=== PATIENT | male | born 1965 | race Hispanic/Latino ===

== ENCOUNTER 2022-04-15 18:37 | Emergency (ER) | payer BC ==
[2022-04-15 20:26] LABS: Absolute Lymphocytes (CBC) 1.8 K/uL (0.7-4.9); Hematocrit 39.3 % (39.6-49.0); Lymphocytes % 26.2 % (15.3-44.8); MCV 90.9 fL (80-100); MPV 9.6 fL (7.6-11.3); RBC Red Blood Cell Count 4.32 M/uL (4.33-5.43)
[2022-04-15 20:33] LABS: Albumin 3.3 g/dL (3.4-5.0); Bilirubin Total 0.7 mg/dL (0.2-1.0); Protein, Total 6.6 g/dL (6.4-8.2)
--- NOTE | 2022-04-15 21:23 | RAD REPORT ---
EXAM DESCRIPTION: CT - Abdomen Pelvis W Contrast - 04/15/2022 9:03 pm CLINICAL HISTORY: Abdominal pain COMPARISON: none. TECHNIQUE: Computed axial tomography of the abdomen pelvis was obtained. 100 cc Isovue-300 was admin istered intravenously. Oral contrast was not requested which limits evaluation of bowel and appendix All CT scans are performed using dose optimization technique as appropriate and may include automated exposure control or mA/KV adjustment according to patient size. FINDINGS: The liver, spleen, pancreas, adrenals and left kidney are unremarkable Several vague small low-density areas within the right kidney A portion of the appendix is seen and is normal caliber. No evidence of diverticulitis. A moderate left inguinal hernia contains fat IMPRESSION: Several vague small low-density areas within the right kidney are nonspecific. They may represent inflammation and should be correlated clinically. Moderate left inguinal hernia
[2022-04-15 21:58] LABS: Urine Blood 1+ (Negative); Urine Glucose 2+ (Negative); Urine Protein 2+ (Negative)
--- NOTE | 2022-04-15 22:15 | RAD REPORT ---
EXAM DESCRIPTION: US - Abdomen Exam Limited - 04/15/2022 10:05 pm CLINICAL HISTORY: Abdominal pain. COMPARISON: None. FINDINGS: The gallbladder wall is not thickened. A gallstone is not seen. The biliary tree is normal caliber. IMPRESSION: Unremarkable gallbladder ultrasound.
--- NOTE | 2022-04-15 22:33 | EDPHYS ---
Physician Documentation [facility] Name: Pj Mendieta Age: 57 yrs Sex: Male : 1965 Arrival Date: 04/15/2022 Time: 18:41 Bed 28 Private MD: Thang Saldivar ED Physician Cole Campos HPI: 04/16 00:50 This 57 yrs old Male presents to ER via Ambulatory with complaints of kb Abdominal Swelling. 00:50 The patient presents with abdominal distention in the right upper quadrant. Onset: The kb symptoms/episode began/occurred 3 month(s) ago. The symptoms do not radiate. Associated signs and symptoms: none. The symptoms are described as constant. Modifying factors: The symptoms are alleviated by nothing, the symptoms are aggravated by nothing. Severity of pain: At its worst the pain was very mild in the emergency department the pain is unchanged. The patient has not experienced similar symptoms in the past. The patient has not recently seen a physician. Pt reports swelling to RUQ. States he does not have pain, but it is uncomfortable at times. Historical: - Allergies: 04/15 19:10 No Known Allergies; vc1 - Home Meds: 19:10 Metformin Oral [Active]; Simvastatin Oral [Active]; Lisinopril Oral [Active]; vc1 - PMHx: 19:10 Hypertensive disorder; Diabetes mellitus; Hypercholesterolemia; vc1 - PSHx: 19:10 None; vc1 - Immunization history:: Adult Immunizations up to date. - Social history:: Smoking status: Patient reports the use of cigarette tobacco products, denies chronic smoking, but will smoke occasionally, Patient uses alcohol, "Weekends". ROS: 04/16 00:50 Constitutional: Negative for fever, chills, and weight loss. kb Abdomen/GI: Positive for abdominal distension, Negative for abdominal pain, nausea, vomiting, and diarrhea. All other systems are negative. Exam: 00:50 Constitutional: This is a well developed, well nourished patient who is awake, alert, kb and in no acute distress. Head/Face: Normocephalic, atraumatic. ENT: Moist Mucous membranes Cardiovascular: Regular rate and rhythm with a normal S1 and S2. No gallops, murmurs, or rubs. No pulse deficits. Respiratory: Respirations even and unlabored. No increased work of breathing. Talking in full sentences Skin: Warm, dry with normal turgor. Normal color. MS/ Extremity: Pulses equal, no cyanosis. Neurovascular intact. Full, normal range of motion. Neuro: Awake and alert, GCS 15, oriented to person, place, time, and situation. Moves all extremities. Normal gait. Psych: Awake, alert, with orientation to person, place and time. Behavior, mood, and affect are within normal limits. 00:50 Abdomen/GI: Inspection: distension, that is mild, in the right upper quadrant, Bowel sounds: normal, Palpation: abdomen is soft and non-tender. Vital Signs: 04/15 19:07 Pulse 77; Resp 20; Temp 98.2; Pulse Ox 100% ; Weight 89.36 kg; Height 5 ft. 7 in. vc1 (170.18 cm); Pain 4/10; 19:12 BP 172 / 93; vc1 22:00 BP 180 / 97; Pulse 60; Resp 20; Pulse Ox 100% ; vc1 22:57 BP 161 / 80; Pulse 61; Resp 18; Pulse Ox 99% on R/A; vc1 19:07 Body Mass Index 30.85 (89.36 kg, 170.18 cm) vc1 MDM: 19:09 Patient medically screened. kb 04/16 00:49 Data reviewed: vital signs, nurses notes. Data interpreted: Pulse oximetry: on room air kb is 99 %. Interpretation: normal. Counseling: I had a detailed discussion with the patient and/or guardian regarding: the historical points, exam findings, and any diagnostic results supporting the discharge/admit diagnosis, lab results, radiology results, the need for outpatient follow up, a family practitioner, a civil laboratory technician, to return to the emergency department if symptoms worsen or persist or if there are any questions or concerns that arise at home. 04/15 19:09 Order name: CBC with Diff; Complete Time: 20:30 kb 04/15 19:09 Order name: CMP; Complete Time: 20:34 kb 04/15 19:09 Order name: Lipase; Complete Time: 20:34 kb 04/15 19:09 Order name: CT Abd/Pelvis - IV Contrast Only; Complete Time: 21:26 kb 04/15 21:27 Order name: US Abdomen Limited; Complete Time: 22:25 kb 07/18 21:58 Order name: Urine Dipstick-Ancillary; Complete Time: 22:03 EDMS 04/15 19:09 Order name: IV Saline Lock; Complete Time: 20:09 kb 04/15 19:09 Order name: Labs collected and sent; Complete Time: 20:09 kb 04/15 21:26 Order name: Urine Dipstick-Ancillary (obtain specimen); Complete Time: 21:57 kb Administered Medications: No medications were administered Disposition: 14:08 Co-signature as Attending Physician, Cole Campos DO I was immediately available on-site ms3 in the Emergency Department for consultation in the care of the patient. . Disposition Summary: 04/15/22 22:32 Discharge Ordered Location: Home kb Condition: Stable kb Diagnosis - RUQ swelling kb - Abdominal pain, unspecified kb Followup: kb - With: Emergency Department - When: As needed - Reason: Worsening of condition Followup: kb - With: Private Physician - When: 2 - 3 days - Reason: Recheck today's complaints, Continuance of care, Re-evaluation by your physician Discharge Instructions: - Discharge Summary Sheet kb - Abdominal Pain, Adult, [id number] kb Forms: - Medication Reconciliation Form kb - Thank You Letter kb - Antibiotic Education kb - Prescription Opioid Use kb Signatures: Dispatcher [employer] EDVT Lucia Mcintosh, SILK WASHING MACHINE OPERATOR-C SILK WASHING MACHINE OPERATOR-CkCole Asif DO DO ms3 Bisi Harp, RN RN vc1
--- NOTE | 2022-04-15 22:33 | ER ---
Nurse's Notes [facility] Name: Pj Mendieta Age: 57 yrs Sex: Male : 1965 Arrival Date: 04/15/2022 Time: 18:41 Bed 28 Private MD: Thang Saldivar Diagnosis: RUQ swelling;Abdominal pain, unspecified Presentation: 04/15 19:07 Chief complaint: Patient states: "I am having swelling to the right upper quadrant.". vc1 Coronavirus screen:. Initial Sepsis Screen: Does the patient meet any 2 criteria? No. Patient's initial sepsis screen is negative. Does the patient have a suspected source of infection? No. Patient's initial sepsis screen is negative. Risk Assessment: Do you want to hurt yourself or someone else? Patient reports no desire to harm self or others. Onset of symptoms is unknown. 19:07 Method Of Arrival: Ambulatory vc1 19:07 Acuity: RICK 3 vc1 19:11 Ebola Screen: No symptoms or risks identified at this time. vc1 Triage Assessment: 21:07 General: Appears in no apparent distress. comfortable, Behavior is calm, cooperative, vc1 appropriate for age. Pain: Complains of pain in right upper quadrant Pain does not radiate. EENT: No deficits noted. Neuro: Level of Consciousness is awake, alert, obeys commands, Oriented to person, place, time, situation, Appropriate for age. Cardiovascular: Capillary refill < 3 seconds Patient's skin is warm and dry. Respiratory: Airway is patent Respiratory effort is even, unlabored, Respiratory pattern is regular, symmetrical. GI: Abdomen is round. : No deficits noted. Derm: No deficits noted. Musculoskeletal: No deficits noted. Historical: - Allergies: 19:10 No Known Allergies; vc1 - Home Meds: 19:10 Metformin Oral [Active]; Simvastatin Oral [Active]; Lisinopril Oral [Active]; vc1 - PMHx: 19:10 Hypertensive disorder; Diabetes mellitus; Hypercholesterolemia; vc1 - PSHx: 19:10 None; vc1 - Immunization history:: Adult Immunizations up to date. - Social history:: Smoking status: Patient reports the use of cigarette tobacco products, denies chronic smoking, but will smoke occasionally, Patient uses alcohol, "Weekends". Screenin:12 Abuse screen: Denies threats or abuse. Nutritional screening: No deficits noted. vc1 Tuberculosis screening: No symptoms or risk factors identified. Fall Risk None identified. Assessment: 21:08 GI: Bowel sounds present X 4 quads. Abd is soft Abdomen is tender to palpation. vc1 Vital Signs: 19:07 Pulse 77; Resp 20; Temp 98.2; Pulse Ox 100% ; Weight 89.36 kg; Height 5 ft. 7 in. vc1 (170.18 cm); Pain 4/10; 19:12 BP 172 / 93; vc1 22:00 BP 180 / 97; Pulse 60; Resp 20; Pulse Ox 100% ; vc1 22:57 BP 161 / 80; Pulse 61; Resp 18; Pulse Ox 99% on R/A; vc1 19:07 Body Mass Index 30.85 (89.36 kg, 170.18 cm) vc1 ED Course: 18:41 Patient arrived in ED. mr 18:41 Thang Saldivar MD is Private Physician. mr 19:09 Lucia Mcintosh FNP-C is [facility]. kb 19:09 Cole Campos DO is Attending Physician. kb 19:10 Triage completed. vc1 19:11 Arm band placed on right wrist. vc1 19:51 Bisi Harp RN is Primary Nurse. vc1 20:00 Patient has correct armband on for positive identification. Pulse ox on. NIBP on. vc1 21:05 CT Abd/Pelvis - IV Contrast Only In Process Unspecified. EDMS 22:06 US Abdomen Limited In Process Unspecified. EDMS 23:01 No provider procedures requiring assistance completed. IV discontinued, intact, vc1 bleeding controlled, No redness/swelling at site. Pressure dressing applied. Administered Medications: No medications were administered Medication: 23:01 VIS not applicable for this client. vc1 Outcome: 22:32 Discharge ordered by . kb 23:01 Discharged to home ambulatory, with significant other. vc1 23:01 Condition: good 23:01 Discharge instructions given to patient, significant other, Instructed on discharge instructions, follow up and referral plans. Demonstrated understanding of instructions, follow-up care. 23:04 Patient left the ED. vc1 Signatures: Dispatcher [employer] EDNY Lucia Mcintosh FNP-C DREDGE WORKER-Cait Mcdonald mr Bisi Harp, RN RN vc1
[2022-04-15 23:42] VITALS: TEMP 98.2
[2022-04-15 23:46] VITALS: BP 161/80; O2SAT 99
== END 2022-04-15 23:04 | disposition home or self-care (01) ==
LOC: ER 18:37
DX: R19.01 Right upper quadrant abdominal swelling, mass and lump (principal); R10.11 Right upper quadrant pain; I10 Essential (primary) hypertension; E11.9 Type 2 diabetes mellitus without complications; F17.210 Nicotine dependence, cigarettes, uncomplicated
CPT/HCPCS: 85025; 36415; 81003; 83690; 80053; 74177; 76705; 99283; Q9967

== ENCOUNTER 2023-08-10 12:40 | Emergency (ER) | payer OTHER, BC ==
--- OUTSIDE RECORDS SUMMARY | 2023-08-10 12:47 | XMS REPORT | Continuity of Care Document ---
:1965 Author Organization [facility] t Address [address] [place] [address] Care Team Providers Name Role Phone Julio BURCIAGA, Blue Menendez. Primary Care Physician Lana Bailey Attending Clinician Unavailable ABBI AGUIAR Attending Clinician Unavailable ABBI AGUIAR Attending Clinician Unavailable DELPHINE DODGE Attending Clinician Unavailable EDA ROSEN Attending Clinician Unavailable JASMINA ROSENYA Attending Clinician Unavailable JOHN STARKEY Attending Clinician Unavailable ALONSO NJ Attending Clinician Unavailable ALONSO NJ Attending Clinician Unavailable John Valverde Attending Clinician Lab, Ang - Db Attending Clinician Unavailable Champion_P Attending Clinician Unavailable Beatriz Kumar RN Attending Clinician Unavailable WALI DIAZ Attending Clinician Unavailable Wali Diaz MD Attending Clinician Roni Mccracken MD Attending Clinician Doctor Unassigned, [place] Attending Clinician Unavailable [facility] Attending Clinician Unavailable Jeffrey Maguire MD Attending Clinician ATANASOV, STRAHIL T Attending Clinician Unavailable ZOHREH MAGUIREHIL T Attending Clinician Unavailable BRENDA BARROSO Attending Clinician Yohana safia Barroso MD, Brenda Cantu Attending Clinician Venkatesh Oneill Attending Clinician Unavailable HENRY BOB Attending Clinician Unavailable Jennifer, General Cardiology Attending Clinician Unavailable Gm BURCIAGA, Cam Loepz Attending Clinician Colleen Mcleod RN Attending Clinician Unavailable Dayton RENDON, Jaja Attending Clinician Unavailable Greg Attending Clinician Unavailable Yancy Brar Attending Clinician Unavailable CAM WORRELL Attending Clinician Unavailable LANA CROCKETT Attending Clinician Unavailable Team, [facility] Attending Clinician Unavailisai Bob MD, Henry Attending Clinician KATERINA DOBSON Attending Clinician Unavailable Anejohn LANGUAGE ARTS TEACHERKermit Attending Clinician KERMIT PORTILLO Attending Clinician Unavailable Lab, Adc Fam Pob I Attending Clinician Unavailable Provider, [facility] Attending Clinician Unavailable HARJINDER HUERTAS Attending Clinician Unavailable TIFFANIE HAMPTON Attending Clinician Unavailable Derian Napoles MD Attending Clinician GABRIELA QUINTANILLA Attending Clinician Unavailable Gabriela Groves Attending Clinician DEIRAN NAPOLES Attending Clinician Unavailable Lana Bailey Admitting Clinician Unavailable Champion_P Admitting Clinician Unavailable RONI MCCRACKEN Admitting Clinician Unavailable BRENDA BARROSO Admitting Clinician Yohana safia Barroso MD, Brenda Cantu Admitting Clinician ABBI NINA Admitting Clinician Unavailable Greg Admitting Clinician Unavailable Yancy Brar Admitting Clinician Unavailable Payers Payer Name Policy Type Policy Number Effective Date Expiration Date S tank [facility] - [id number] 2021 00:00:00 OUT OF STATE [place]: [facility] [id number] 2021 00:00:00 OF [place] ([place] Problems Condition Condition Condition Status Onset Resolution Last Treating Co mments Source Name Details Category Date Date Treatment Clinician Date Septic Septic Disease Active Univers bursitis bursitis 8-27 [place] of [place] Primary Primary Problem Active [facility] erectile Erectile 8-25 [place] dysfunctio Dysfunctio 00:00: Ur ology n n 00 Obesity Obesity Disease Active Univers (BMI (BMI 6-20 ity of 30-39.9) 30-39.9) 00:00: [place] 00 Medical Branch SOB SOB Disease Active Univers (shortness (shortness 6-20 it [place] of of breath[place] breath[place] Degenerati Degenerati Disease Active 2021-09 U nivers on of on of 0-27 ity of lumbar lumbar 00:00: [place] interverte interverte 00 Me dical bral disc bral disc Bran ch Spinal Spinal Disease Active 2021-09 Univers stenosis stenosis 0-27 [place] of of lumbar of lumbar 00:[place] Low back Low back Disease Active 2021-09 Unive rs pain pain 0-26 ity of 00:00: [place] [address] Medical Branch Lumbar Lumbar Problem Active 2021-09 [place] radiculopa Radiculopa 0-26 Or thope thy thy 00:00: [facility] 00 Sports Medicin e 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 2 2-03 ity of diabetes diabetes 00:00: [place] mellitus mellitus 00 Medica l with with Branch hyperglyce hyperglyce mario mario Essential Essential Disease Active Uni vers hypertensi hypertensi 5-18 it y of on on 00:00: [place] Medical [facility] Hyperlipid Hyperlipid Disease Active U nivers emia, emia, 5-18 ity of unspecifie unspecifie 00:[place] 00 Medical hyperlipid hyperlipid Br anch emia type emia type No known No known Disease Metho di active active st problems problems Hospit a l Allergies, Adverse Reactions, Alerts Allergy Allergy Status Severity Reaction(s) Onset Inactive Treating Comm ents Source Name Type Date Date Clinician No Known DA Active U [facility] Allergie 5-25 [facility] s 00:00: [facility] 00 are [place] NO KNOWN Drug Active Univers ALLERGIE Class ity of S [facility] Social History Social Habit Start Date Stop Date Quantity Comments Source Gender identity [facility]it y [facility] to 2022-12-29 2023-01-08 Not sure University SARS-CoV-2 (event) 00:00:00 14:15:00 [facility] History of Social 2022-10-28 2022-10-28 Univers ity of function 00:00:00 00:00:00 [facility] Tobacco use and 2022-10-28 2022-10-28 Smokeless Universit y of exposure 00:00:00 00:00:00 tobacco non-user [facility] Alcohol intake 2020-07-27 2020-07-27 .14 /d [facility] 00:[facility]:00 [facility] Sex Ass[birth year] At [birth year] [facility] 00:00:[facility]:00 Hospital Smoking Status Start Date Stop Date Source Never smoked tobacco [facility] Medications Ordered Filled Start Stop Current Ordering Indication Dosage Frequency Signature Comments Components Source Medication Medication Date Date Medication? Clinician (SIG) Name Name clindamycin Yes [id number] 300mg Take 1 Univers 300 mg 9-11 [id number] capsule by ity o f capsule 00:00: mouth (four) Medical times Branch daily. ibuprofen Yes [id number] 800mg Take 1 Univers 800 mg 9-11 [id number] tablet by ity of tablet 00:00: mouth [place] 00 every 8 Medical (eight) Branch hours as needed for Pain (scale 4-6) (with meals). clindamycin Yes [id number] 300mg Take 1 Univers 300 mg 9-11 [id number] capsule by ity o f capsule 00:00: mouth (four) Medical times Branch daily. ibuprofen Yes [id number] 800mg Take 1 Univers 800 mg 9-11 [id number] tablet by ity of tablet 00:00: mouth 00 every 8 Medical (eight) Branch hours as needed for Pain (scale 4-6) (with meals). clindamycin 2022-0 Yes [id number] 300mg Take 1 Univers 300 mg 9-11 [id number] capsule by ity o f capsule 00:00: mouth (four) Medical times Branch daily. ibuprofen 2023-0 Yes [id number] 800mg Take 1 Univers 800 mg 9-11 [id number] tablet by ity of tablet 00:00: mouth [place] 00 every 8 Medical (eight) Branch hours as needed for Pain (scale 4-6) (with meals). clindamycin 2023-0 Yes [id number] 300mg Take 1 Univers 300 mg 9-11 [id number] capsule by ity o f capsule 00:00: mouth (four) Medical times Branch daily. ibuprofen 2023-0 Yes [id number] 800mg Take 1 Univers 800 mg 9-11 [id number] tablet by ity of tablet 00:00: mouth every 8 Medical (eight) Branch hours as needed for Pain (scale 4-6) (with meals). clindamycin 2023-0 Yes [id number] 300mg Take 1 Univers 300 mg 9-11 [id number] capsule by ity o f capsule 00:00: mouth (four) Medical times Branch daily. ibuprofen 2023-0 Yes [id number] 800mg Take 1 Univers 800 mg 9-11 [id number] tablet by ity of tablet 00:00: mouth every 8 Medical (eight) Branch hours as needed for Pain (scale 4-6) (with meals). clindamycin 2023-0 Yes [id number] 300mg Take 1 Univers 300 mg 9-11 [id number] capsule by ity o f capsule 00:00: mouth (four) Medical times Branch daily. ibuprofen 2023-0 Yes [id number] 800mg Take 1 Univers 800 mg 9-11 [id number] tablet by ity of tablet 00:00: mouth 00 every 8 Medical (eight) Branch hours as needed for Pain (scale 4-6) (with meals). clindamycin 2023-0 Yes [id number] 300mg Take 1 Univers 300 mg 9-11 [id number] capsule by ity o f capsule 00:00: mouth (four) Medical times Branch daily. ibuprofen 2023-0 Yes [id number] 800mg Take 1 Univers 800 mg 9-11 [id number] tablet by ity of tablet 00:00: mouth [place] 00 every 8 Medical (eight) Branch hours as needed for Pain (scale 4-6) (with meals). clindamycin 2022-0 Yes [id number] 300mg Take 1 Univers 300 mg 9-11 [id number] capsule by ity o f capsule 00:00: mouth 4 [place] 00 (four) Medical times Branch daily. ibuprofen 2022-0 Yes [id number] 800mg Take 1 Univers 800 mg 9-11 [id number] tablet by ity of tablet 00:00: mouth 00 every 8 Medical (eight) Branch hours as needed for Pain (scale 4-6) (with meals). clindamycin 2022-0 Yes [id number] 300mg Take 1 Univers 300 mg 9-11 [id number] capsule by ity o f capsule 00:00: mouth 4 00 (four) Medical times Branch daily. ibuprofen 2022-0 Yes [id number] 800mg Take 1 Univers 800 mg 9-11 [id number] tablet by ity of tablet 00:00: mouth 00 every 8 Medical (eight) Branch hours as needed for Pain (scale 4-6) (with meals). mupirocin 2 2022- Yes [id number] Apply to Univers % ointment 05-27 09-06 [id number] area(s) 3 i ty of 00:00: 04:59 (three) [place] 00 :00 times Medical daily for Branch 7 days. mupirocin 2 0 2022- Yes [id number] Apply to Univers % ointment 05-27 09-06 [id number] area(s) 3 i ty of 00:00: 04:59 (three) [place] 00 :00 times Medical daily for Branch 7 days. simvastatin 2022-0 Yes 20mg 20 mg, Univ ers (ZOCOR) 8 Oral, QHS, ity of tablet 20 02:00: [place] 00 on [facility] 05/25/23 at Branch 2100, Until Discontinu ed, Routine enoxaparin 2022-0 Yes 40mg 40 mg, Unive rs (LOVENOX) 8 Subcutaneo ity of injection 22:00: [place], DAILY, [place] 40 mg 00 First dose Medical on [facility] 05/25/23 at 1700, Until Discontinu ed, Routine sennosides- 2022-0 Yes 1{tbl} 1 tablet, [facility] docusate 05-25 Oral, ity of sodium 14:00: DAILY, [place] (SENOKOT-S) 00 First dose Me dical 8.6-50 mg on [facility] per tablet 05/25/23 at 1 tablet 0900, Until Discontinu ed, Routine Sliding Yes Subcutaneo [facility] ers Scale 05-25 us, TID ity of Insulin - 13:00: MEALS+HS, Aditya as Lispro 00 First dose Medical (HumaLOG) on [facility] 05/25/23 at 0800, Until Discontinu ed, Routine ceFAZolin 2022- Yes 1000mg 1,000 mg, [facility] (ANCEF) 05-25 Intravenou ity o f 1,000 mg in 10:15: 10:14 s, Q8H Aditya as NaCl 0.9% 00 :00 ABX, 15 Medical (NS) 100 mL doses, Branch MINI-BAG First dose on [place] 05/25/23 at 0515, Last dose on [place] 05/29/23 at 2115, Administer over 30 Minutes, 100 mL
Reas on for Anti-Infec tive: Documented Infection< br>Documen kar Infection Site: Skin / Soft Tissue
Duration of Therapy: 7 days NaCl 0.9% 2022- No 500mL at 999 [facility] ers (NS) bolus 05-25 mL/hr, 500 it y of infusion 09:15: 09:46 mL, IV [place] 500 mL 00 :00 Piggyback, Medical ONCE, 1 Branch dose, On [place] 05/25/23 at 0415, STAT lisinopriL 2022- No 20mg 20 mg, [facility] ers (PRINIVIL,Z 05-25 Oral, ity of ESTRIL) 09:15: 09:45 Q24H, [place] tablet 20 00 :02 First dose Medi faisal mg on [facility] 05/25/23 at 0415, Until Discontinu ed, Routine insulin Yes 10U 10 Units, [facility] rs glargine 05-25 Subcutaneo ity o f (LANTUS 08:30: us, QHS, [place] U-100) 00 First dose Medical injection on [facility] 10 Units 05/25/23 at 0330, Until Discontinu ed, Routine melatonin 2022-0 Yes 3mg 3 mg, Univers (MELATIN) 05-25 Oral, ity of tablet 3 mg 08:25: QHSPRN, Aditya as 05 Starting Medical on [place] 05/25/23 at 0325, Until Discontinu ed, Routine, Insomnia dextrose 2022-0 Yes 250mL 250 mL, IV Un leandra 10% (D10W) 05-25 Infusion, ity of bolus 08:21: PRN - SEE [place] infusion 36 INSTRUCTIO Medic al 250 mL NS, Branch Administer over 60 Minutes, Other, If blood glucose is < or = 70 mg/dL and patient is unable to swallow or has mental status changes, Starting on 05/25/23 at 0321
If blood glucose is < or = 70 mg/dL and patient is unable to swallow or has mental status changes (Give glucagon order if patient needs fluid restrictio n): IF IV access available: Dextrose 10%. 1. 125 mL (? bag) of D10W IV infusion - equivalent to 12.5 g dextrose 2. Blood glucose - draw blood glucose 15 minutes after D10W Administra tion. 3. If blood glucose is < 80 mg/dL, repeat.
glucagon Yes 1mg 1 mg, Univers (GLUCAGEN 05-25 Intramuscu ity of DIAGNOSTIC 08:21: lar, PRN, [place] KIT) 33 Starting Medical injection 1 on [place] Branch mg 05/25/23 at 0321, Until Discontinu ed, SILVIA, Blood Glucose < or = 70 mg/dL and patient is NPO, unable to swallow or has mental changes. hydroCHLORO 2022-0 202- No 25mg 25 mg, Uni vers thiazide 05-25 Oral, ity of (ESIDRIX) 08:15: 09:45 DAILY, [place] tablet 25 00 :02 First dose Medi faisal mg on [place] 05/25/23 at 0315, Until Discontinu ed, Routine ondansetron 2022-0 Yes 4mg 4 mg, Slow Univers (ZOFRAN 05-25 IV Push, ity of (PF)) 07:50: Q6HPRN, [place] injection 4 10 Starting Medi faisal mg on [place] 05/25/23 at 0250, Until Discontinu ed, Routine, Nausea and Vomiting (N/V) morpHINE (4 2022- No 4mg 4 mg, Slow Univers mg/mL) 05-25 IV Push, ity of injection 4 07:50: 11:57 Q4HPRN, [place] mg 01 :51 Starting Medical on [place] 05/25/23 at 0250, Until 05/25/23 at 0657, Routine, Pain (scale 7-10) HYDROcodone 2022- Yes 1{tbl} 1 tablet, Univers -acetaminop 05-25 Oral, ity of hen (NORCO 07:49: 07:48 Q6HPRN, Aditya as 5) 5-325 mg 54 :54 Starting Medi faisal tablet 1 on [place] tablet 05/25/23 at 0249, Until 05/27/23 at 0248, Routine, Pain (scale 4-6) HYDROcodone 2022- Yes [id number] 1{tbl} Take 1 U nivers -acetaminop 05-2504 tablet by it y of hen 5-325 00:00: 04:59 mouth [place] mg tablet 00 :00 every 6 Medical (six) Branch hours as needed for Pain (scale 7-10) for up to 7 days. Indication s: acute pain HYDROcodone 2022- Yes [id number] 1{tbl} Take 1 U nivers -acetaminop -25 06-04 tablet by it y of hen 5-325 00:00: 04:59 mouth [place] mg tablet 00 :00 every 6 Medical (six) Branch hours as needed for Pain (scale 7-10) for up to 7 days. Indication s: acute pain HYDROcodone 2022- Yes [id number] 1{tbl} Take 1 U nivers -acetaminop 8- 09-04 tablet by it y of hen 5-325 00:00: 04:59 mouth [place] mg tablet 00 :00 every 6 Medical (six) Branch hours as needed for Pain (scale 7-10) for up to 7 days. Indication s: acute pain HYDROcodone 2022- Yes [id number] 1{tbl} Take 1 U nivers -acetaminop 05-25 tablet by it y of hen 5-325 00:00: 04:59 mouth [place] mg tablet 00 :00 every 6 Medical (six) Branch hours as needed for Pain (scale 7-10) for up to 7 days. Indication s: acute pain cephALEXin 2022- Yes [id number] 500mg Take 1 Univers 500 mg 05-25 [id number] capsule by ity of capsule 00:00: 04:59 mouth 4 [place] 00 :00 (four) Medical times Branch daily for 6 days. cephALEXin 2022- Yes [id number] 500mg Take 1 Univers 500 mg 05-25 [id number] capsule by ity of capsule 00:00: 04:59 mouth 4 [place] 00 :00 (four) Medical times Branch daily for 6 days. cephALEXin 2022- Yes [id number] 500mg Take 1 Univers 500 mg 05-25 [id number] capsule by ity of capsule 00:00: 04:59 mouth 4 [place] 00 :00 (four) Medical times Branch daily for 6 days. cephALEXin 2022- Yes [id number] 500mg Take 1 Univers 500 mg 05-25 [id number] capsule by ity of capsule 00:00: 04:59 mouth 4 [place] 00 :00 (four) Medical times Branch daily for 6 days. Insulin NPH Yes [id number] 20U inject 20 Univers Human 7-06 Units ity of Recomb 00:00: under the [place] (HUMULIN N 00 skin every Med ical NPH INSULIN morning. Bran ch KWIKPEN) 100 unit/mL (3 mL) injection lisinopriL- Yes [id number] 1{tbl} Take 1 Univers hydrochloro 7-06 tablet by ity of thiazide 00:00: mouth in [place] 20-25 mg 00 the Medical per tablet morning. Branc h Insulin NPH Yes [id number] 20U inject 20 Univers Human 7-06 Units ity of Recomb 00:00: under the [place] (HUMULIN N 00 skin every Med ical NPH INSULIN morning. Bran ch KWIKPEN) 100 unit/mL (3 mL) injection lisinopriL- Yes [id number] 1{tbl} Take 1 Univers hydrochloro 7-06 tablet by ity of thiazide 00:00: mouth in [place] 20-25 mg 00 the Medical per tablet morning. Branc h Insulin NPH 2022-0 Yes [id number] 20U inject 20 Univers Human 7-06 Units ity of Recomb 00:00: under the [place] (HUMULIN N 00 skin every Med ical NPH INSULIN morning. Randell corrales KWIKPEN) 100 unit/mL (3 mL) injection lisinopriL- 2023-0 Yes [id number] 1{tbl} Take 1 Univers hydrochloro 7-06 tablet by ity of thiazide 00:00: mouth in [place] 20-25 mg 00 the Medical per tablet morning. Branc h Insulin NPH 2022-0 Yes [id number] 20U inject 20 Univers Human 7-06 Units ity of Recomb 00:00: under the [place] (HUMULIN N 00 skin every Med ical NPH INSULIN morning. Randell corrales KWIKPEN) 100 unit/mL (3 mL) injection lisinopriL- 2023-0 Yes [id number] 1{tbl} Take 1 Univers hydrochloro 7-06 tablet by ity of thiazide 00:00: mouth in [place] 20-25 mg 00 the Medical per tablet morning. Branc h Insulin NPH 2022-0 Yes [id number] 20U inject 20 Univers Human 7-06 Units ity of Recomb 00:00: under the [place] (HUMULIN N 00 skin every Med ical NPH INSULIN morning. Randell corrales KWIKPEN) 100 unit/mL (3 mL) injection lisinopriL- 2023-0 Yes [id number] 1{tbl} Take 1 Univers hydrochloro 7-06 tablet by ity of thiazide 00:00: mouth in [place] 20-25 mg 00 the Medical per tablet morning. Branc h Insulin NPH 2022-0 Yes [id number] 20U inject 20 Univers Human 7-06 Units ity of Recomb 00:00: under the [place] (HUMULIN N 00 skin every Med ical NPH INSULIN morning. Randell corrales KWIKPEN) 100 unit/mL (3 mL) injection lisinopriL- 2023-0 Yes [id number] 1{tbl} Take 1 Univers hydrochloro 7-06 tablet by ity of thiazide 00:00: mouth in [place] 20-25 mg 00 the Medical per tablet morning. Branc h Insulin NPH 2022-0 Yes [id number] 20U inject 20 Univers Human 7-06 Units ity of Recomb 00:00: under the [place] (HUMULIN N 00 skin every Med ical NPH INSULIN morning. Randell corrales KWIKPEN) 100 unit/mL (3 mL) injection lisinopriL- 2022-0 Yes [id number] 1{tbl} Take 1 Univers hydrochloro 7-06 tablet by ity of thiazide 00:00: mouth in [place] 20-25 mg 00 the Medical per tablet morning. Branc h Insulin NPH 2022-0 Yes [id number] 20U inject 20 Univers Human 7-06 Units ity of Recomb 00:00: under the [place] (HUMULIN N 00 skin every Med ical NPH INSULIN morning. Randell corrales KWIKPEN) 100 unit/mL (3 mL) injection lisinopriL- 2022-0 Yes [id number] 1{tbl} Take 1 Univers hydrochloro 7-06 tablet by ity of thiazide 00:00: mouth in [place] 20-25 mg 00 the Medical per tablet morning. Branc h Insulin NPH 2022-0 Yes [id number] 20U inject 20 Univers Human 7-06 Units ity of Recomb 00:00: under the [place] (HUMULIN N 00 skin every Med ical NPH INSULIN morning. Randell corrales KWIKPEN) 100 unit/mL (3 mL) injection lisinopriL- 3-0 Yes [id number] 1{tbl} Take 1 Univers hydrochloro 7-06 tablet by ity of thiazide 00:00: mouth in [place] 20-25 mg 00 the Medical per tablet morning. Branc h Insulin NPH 2022-0 Yes [id number] 20U inject 20 Univers Human 7-06 Units ity of Recomb 00:00: under the [place] (HUMULIN N 00 skin every Med ical NPH INSULIN morning. Randell corrales KWIKPEN) 100 unit/mL (3 mL) injection lisinopriL- 2023-0 Yes [id number] 1{tbl} Take 1 Univers hydrochloro 7-06 tablet by ity of thiazide 00:00: mouth in [place] 20-25 mg 00 the Medical per tablet morning. Branc h Insulin NPH 2022-0 Yes [id number] 20U inject 20 Univers Human 7-06 Units ity of Recomb 00:00: under the [place] (HUMULIN N 00 skin every Med ical NPH INSULIN morning. Randell corrales KWIKPEN) 100 unit/mL (3 mL) injection lisinopriL- 2023-0 Yes [id number] 1{tbl} Take 1 Univers hydrochloro 7-06 tablet by ity of thiazide 00:00: mouth in [place] 20-25 mg 00 the Medical per tablet morning. Branc h Insulin NPH 2022-0 Yes [id number] 20U inject 20 Univers Human 7-06 Units ity of Recomb 00:00: under the [place] (HUMULIN N 00 skin every Med ical NPH INSULIN morning. Randell antoni HAQUEPEN) 100 unit/mL (3 mL) injection lisinopriL- 2023-0 Yes [id number] 1{tbl} Take 1 Univers hydrochloro 7-06 tablet by ity of thiazide 00:00: mouth in [place] 20-25 mg 00 the Medical per tablet morning. Branc h Insulin NPH 2022-0 Yes [id number] 20U inject 20 Univers Human 7-06 Units ity of Recomb 00:00: under the [place] (HUMULIN N 00 skin every Med ical NPH INSULIN morning. Randell antoni HAQUEPEN) 100 unit/mL (3 mL) injection lisinopriL- 2023-0 Yes [id number] 1{tbl} Take 1 Univers hydrochloro 7-06 tablet by ity of thiazide 00:00: mouth in [place] 20-25 mg 00 the Medical per tablet morning. Branc h Insulin NPH 2022-0 Yes [id number] 20U inject 20 Univers Human 7-06 Units ity of Recomb 00:00: under the [place] (HUMULIN N 00 skin every Med ical NPH INSULIN morning. Randell antoni HAQUEPEN) 100 unit/mL (3 mL) injection lisinopriL- 2023-0 Yes [id number] 1{tbl} Take 1 Univers hydrochloro 7-06 tablet by ity of thiazide 00:00: mouth in [place] 20-25 mg 00 the Medical per tablet morning. Branc h Insulin NPH 2022-0 Yes [id number] 20U inject 20 Univers Human 7-06 Units ity of Recomb 00:00: under the [place] (HUMULIN N 00 skin every Med ical NPH INSULIN morning. Randell antoni HAQUEPEN) 100 unit/mL (3 mL) injection lisinopriL- 2023-0 Yes [id number] 1{tbl} Take 1 Univers hydrochloro 7-06 tablet by ity of thiazide 00:00: mouth in [place] 20-25 mg 00 the Medical per tablet morning. Branc h Insulin NPH 2022-0 Yes [id number] 20U inject 20 Univers Human 7-06 Units ity of Recomb 00:00: under the [place] (HUMULIN N 00 skin every Med ical NPH INSULIN morning. Randell corrales KWIKPEN) 100 unit/mL (3 mL) injection lisinopriL- 2023-0 Yes [id number] 1{tbl} Take 1 Univers hydrochloro 7-06 tablet by ity of thiazide 00:00: mouth in [place] 20-25 mg 00 the Medical per tablet morning. Branc h Insulin NPH 2022-0 Yes [id number] 20U inject 20 Univers Human 7-06 Units ity of Recomb 00:00: under the [place] (HUMULIN N 00 skin every Med ical NPH INSULIN morning. Randell corrales KWIKPEN) 100 unit/mL (3 mL) injection lisinopriL- 3-0 Yes [id number] 1{tbl} Take 1 Univers hydrochloro 7-06 tablet by ity of thiazide 00:00: mouth in [place] 20-25 mg 00 the Medical per tablet morning. Branc h Insulin NPH 2022-0 Yes [id number] 20U inject 20 Univers Human 7-06 Units ity of Recomb 00:00: under the [place] (HUMULIN N 00 skin every Med ical NPH INSULIN morning. Randell corrales KWIKPEN) 100 unit/mL (3 mL) injection lisinopriL- 3-0 Yes [id number] 1{tbl} Take 1 Univers hydrochloro 7-06 tablet by ity of thiazide 00:00: mouth in [place] 20-25 mg 00 the Medical per tablet morning. Branc h Insulin NPH 2022-0 Yes [id number] 20U inject 20 Univers Human 7-06 Units ity of Recomb 00:00: under the [place] (HUMULIN N 00 skin every Med ical NPH INSULIN morning. Randell corrales KWIKPEN) 100 unit/mL (3 mL) injection lisinopriL- 2023-0 Yes [id number] 1{tbl} Take 1 Univers hydrochloro 7-06 tablet by ity of thiazide 00:00: mouth in [place] 20-25 mg 00 the Medical per tablet morning. Branc h Insulin NPH 2022-0 Yes [id number] 20U inject 20 Univers Human 7-06 Units ity of Recomb 00:00: under the [place] (HUMULIN N 00 skin every Med ical NPH INSULIN morning. Randell corrales KWIKPEN) 100 unit/mL (3 mL) injection lisinopriL- 2022-0 Yes [id number] 1{tbl} Take 1 Univers hydrochloro 7-06 tablet by ity of thiazide 00:00: mouth in [place] 20-25 mg 00 the Medical per tablet morning. Branc h Insulin NPH 2022-0 Yes [id number] 20U inject 20 Univers Human 7-06 Units ity of Recomb 00:00: under the [place] (HUMULIN N 00 skin every Med ical NPH INSULIN morning. Randell corrales KWIKPEN) 100 unit/mL (3 mL) injection lisinopriL- 2022-0 Yes [id number] 1{tbl} Take 1 Univers hydrochloro 7-06 tablet by ity of thiazide 00:00: mouth in [place] 20-25 mg 00 the Medical per tablet morning. Branc h Insulin NPH 2022-0 Yes [id number] 20U inject 20 Univers Human 7-06 Units ity of Recomb 00:00: under the [place] (HUMULIN N 00 skin every Med ical NPH INSULIN morning. Randell corrales KWIKPEN) 100 unit/mL (3 mL) injection lisinopriL- 2022-0 Yes [id number] 1{tbl} Take 1 [facility] hydrochloro 7-06 tablet by ity of thiazide 00:00: mouth in [place] 20-25 mg 00 the Medical per tablet morning. Branc h simvastatin 2022-0 Yes 20mg 20 mg, Univ ers (ZOCOR) 6-21 Oral, QHS, ity of tablet 20 02:00: First dose [place] mg 00 on [facility] 03/18/23 at Branch 2100, Until Discontinu ed, Routine NaCl 0.9% 2022-0 Yes 500mL at 250 Unive rs (NS) IV 6-20 mL/hr, IV ity of infusion 18:45: [place] 00 CONTINUOUS Medical , Starting Branch on Fri03/18/23 at 1345, Until Discontinu ed, Routine sulfur 2022-0 202- No [id number] 5mL 5 mL, Univ ers hexafluorid -20 06-20 Intravenou i ty of e microsphr 16:00: 16:00 s, ONCE, 1 [place] (LUMASON) 00 :00 dose, On Medica l injection 5 [facility] mL 03/18/23 at 1100, Routine
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 Restricted medication : MELISSA NUNES lisinopriL Yes 20mg 20 mg, Unive rs (PRINIVIL,Z 6-20 Oral, ity of ESTRIL) 14:00: DAILY, [place] tablet 20 00 First dose Medi faisal mg on [facility] 03/18/23 at 0900, Until Discontinu ed, Routine insulin NPH Yes 15U 15 Units, U nivers (HUMULIN N) 6-20 Subcutaneo it y of injection 13:00: [facility] WITH Medical BREAKFAST, Branch First dose (after last modificati on) on [facility] 03/18/23 at 0800, Until Discontinu ed Sliding Yes Subcutaneo Univ ers Scale 6-20 us, TID ity of Insulin - 13:00: MEALS+HS, Aditya as Lispro 00 First dose Medical (HumaLOG) on [facility] 03/18/23 at 0800, Until Discontinu ed, Routine heparin Yes 5000U 5,000 [facility] (porcine) 6-20 Units, ity of injection 13:00: Subcutaneo [place] 5,000 Units 00 us, Q12H, Med ical First dose Branch on [facility] 03/18/23 at 0800, Until Discontinu ed, Routine ramelteon 0 Yes 8mg 8 mg, Univers (ROZEREM) 6-20 Oral, QHS, ity of tablet 8 mg 09:30: First dose 00 on [facility] 03/18/23 at Branch 0430, Until Discontinu ed, Routine dextrose 2022-0 Yes 250mL 250 mL, IV Un leandra 10% (D10W) 6-20 Infusion, ity of bolus 09:10: PRN - SEE [place] infusion 51 INSTRUCTIO Medic al 250 mL NS, Branch Administer over 60 Minutes, Other, If blood glucose is < or = 70 mg/dL and patient is unable to swallow or has mental status changes, Starting on [facility] 03/18/23 at 0410
If blood glucose is < or = 70 mg/dL and patient is unable to swallow or has mental status changes (Give glucagon order if patient needs fluid restrictio n): IF IV access available: Dextrose 10%. 1. 125 mL (? bag) of D10W IV infusion - equivalent to 12.5 g dextrose 2. Blood glucose - draw blood glucose 15 minutes after D10W Administra tion. 3. If blood glucose is < 80 mg/dL, repeat.
glucagon 0 Yes 1mg 1 mg, Univers (GLUCAGEN 03-18 Intramuscu ity of DIAGNOSTIC 09:10: lar, PRN, [place] KIT) 48 Starting Medical injection 1 on Fri mg 03/18/23 at 0410, Until Discontinu ed, SILVIA, Blood Glucose < or = 70 mg/dL and patient is NPO, unable to swallow or has mental changes. nitroglycer 2022-0 Yes .4mg 0.4 mg, Uni vers in 03-18 Sublingual ity of (NITROSTAT) 09:08: , Q5MIN Aditya as sublingual 27 PRN, Medical tablet 0.4 Starting Branc h mg on Fri03/18/23 at 0408, Until Discontinu ed, Routine, Chest pain HYDROcodone 2022-0 2022- No 1{tbl} 1 tablet, Univers -acetaminop 03-18 Oral, ity of hen (NORCO 09:08: 09:07 Q6HPRN, Aditya as 5) 5-325 mg 12 :12 Starting Medi faisal tablet 1 on Fri tablet 03/18/23 at 0408, Until [place] 03/20/23 at 0407, Routine, Pain (scale 4-6) acetaminoph 2022-0 Yes 650mg 650 mg, Un leandra en 03-18 Oral, ity of (TYLENOL) 09:08: Q6HPRN, [place] tablet 650 08 Starting Medic al mg on Fri Branch 03/18/23 at 0408, Until Discontinu ed, Routine, Pain (scale 1-3) empaglifloz 2022-0 Yes [id number] 25mg Take 1 [facility] in 4-11 tablet by ity of (JARDIANCE) 00:00: mouth in [place] 25 mg Tab 00 the Medical morning. Branch semaglutide 3-0 Yes [id number] 1mg inject 1 [facility] (OZEMPIC) 1 4-11 mg under ity of mg/dose (4 00:00: the skin Aditya as mg/3 mL) 00 weekly. Medical PnIj Branch empaglifloz 3-0 Yes [id number] 25mg Take 1 [facility] in 4-11 tablet by ity of (JARDIANCE) 00:00: mouth in [place] 25 mg Tab 00 the Medical morning. Branch semaglutide 3-0 Yes [id number] 1mg inject 1 [facility] (OZEMPIC) 1 4-11 mg under ity of mg/dose (4 00:00: the skin Aditya as mg/3 mL) 00 weekly. Medical Ij Branch empaglifloz 3-0 Yes [id number] 25mg Take 1 [facility] in 4-11 tablet by ity of (JARDIANCE) 00:00: mouth in [place] 25 mg Tab 00 the Medical morning. Branch semaglutide 3-0 Yes [id number] 1mg inject 1 Univers (OZEMPIC) 1 4-11 mg under ity of mg/dose (4 00:00: the skin Aditya as mg/3 mL) 00 weekly. Medical Ij Branch empaglifloz 3-0 Yes [id number] 25mg Take 1 [facility] in 4-11 tablet by ity of (JARDIANCE) 00:00: mouth in [place] 25 mg Tab 00 the Medical morning. Branch semaglutide 3-0 Yes [id number] 1mg inject 1 Univers (OZEMPIC) 1 4-11 mg under ity of mg/dose (4 00:00: the skin Aditya as mg/3 mL) 00 weekly. Medical Ij Branch empaglifloz 3-0 Yes [id number] 25mg Take 1 [facility] in 4-11 tablet by ity of (JARDIANCE) 00:00: mouth in [place] 25 mg Tab 00 the Medical morning. Branch semaglutide 2023-0 Yes [id number] 1mg inject 1 [facility] (OZEMPIC) 1 4-11 mg under ity of mg/dose (4 00:00: the skin Aditya as mg/3 mL) 00 weekly. Medical Ij Branch empaglifloz 3-0 Yes [id number] 25mg Take 1 [facility] in 4-11 tablet by ity of (JARDIANCE) 00:00: mouth in [place] 25 mg Tab 00 the Medical morning. Branch semaglutide 2023-0 Yes [id number] 1mg inject 1 Univers (OZEMPIC) 1 4-11 mg under ity of mg/dose (4 00:00: the skin Aditya as mg/3 mL) 00 weekly. Medical PnIj Branch empaglifloz 3-0 Yes [id number] 25mg Take 1 [facility] in 4-11 tablet by ity of (JARDIANCE) 00:00: mouth in [place] 25 mg Tab 00 the Medical morning. Branch semaglutide 2023-0 Yes [id number] 1mg inject 1 [facility] (OZEMPIC) 1 4-11 mg under ity of mg/dose (4 00:00: the skin Aditya as mg/3 mL) 00 weekly. Medical PnIj Branch empaglifloz 3-0 Yes [id number] 25mg Take 1 [facility] in 4-11 tablet by ity of (JARDIANCE) 00:00: mouth in [place] 25 mg Tab 00 the Medical morning. Branch semaglutide 2023-0 Yes [id number] 1mg inject 1 [facility] (OZEMPIC) 1 4-11 mg under ity of mg/dose (4 00:00: the skin Aditya as mg/3 mL) 00 weekly. Medical PnIj Branch empaglifloz 3-0 Yes [id number] 25mg Take 1 [facility] in 4-11 tablet by ity of (JARDIANCE) 00:00: mouth in [place] 25 mg Tab 00 the Medical morning. Branch semaglutide 2023-0 Yes [id number] 1mg inject 1 [facility] (OZEMPIC) 1 4-11 mg under ity of mg/dose (4 00:00: the skin Aditya as mg/3 mL) 00 weekly. Medical PnIj Branch empaglifloz 2023-0 Yes [id number] 25mg Take 1 [facility] in 4-11 tablet by ity of (JARDIANCE) 00:00: mouth in [place] 25 mg Tab 00 the Medical morning. Branch semaglutide 2023-0 Yes [id number] 1mg inject 1 [facility] (OZEMPIC) 1 4-11 mg under ity of mg/dose (4 00:00: the skin Aditya as mg/3 mL) 00 weekly. Medical PnIj Branch empaglifloz 2023-0 Yes [id number] 25mg Take 1 [facility] in 4-11 tablet by ity of (JARDIANCE) 00:00: mouth in [place] 25 mg Tab 00 the Medical morning. Branch semaglutide 2023-0 Yes [id number] 1mg inject 1 Univers (OZEMPIC) 1 4-11 mg under ity of mg/dose (4 00:00: the skin Aditya as mg/3 mL) 00 weekly. Medical PnIj Branch empaglifloz 2023-0 Yes [id number] 25mg Take 1 [facility] in 4-11 tablet by ity of (JARDIANCE) 00:00: mouth in [place] 25 mg Tab 00 the Medical morning. Branch semaglutide 2023-0 Yes [id number] 1mg inject 1 [facility] (OZEMPIC) 1 4-11 mg under ity of mg/dose (4 00:00: the skin Aditya as mg/3 mL) 00 weekly. Medical PnIj Branch empaglifloz 2023-0 Yes [id number] 25mg Take 1 [facility] in 4-11 tablet by ity of (JARDIANCE) 00:00: mouth in [place] 25 mg Tab 00 the Medical morning. Branch semaglutide 2023-0 Yes [id number] 1mg inject 1 Univers (OZEMPIC) 1 4-11 mg under ity of mg/dose (4 00:00: the skin [place] as mg/3 mL) 00 weekly. Medical PnIj Branch empaglifloz 2023-0 Yes [id number] 25mg Take 1 [facility] in 4-11 tablet by ity of (JARDIANCE) 00:00: mouth in [place] 25 mg Tab 00 the Medical morning. Branch semaglutide 2023-0 Yes [id number] 1mg inject 1 [facility] (OZEMPIC) 1 4-11 mg under ity of mg/dose (4 00:00: the skin Ad[place] as mg/3 mL) 00 weekly. Medical PnIj Branch empaglifloz 2023-0 Yes [id number] 25mg Take 1 [facility] in 4-11 tablet by ity of (JARDIANCE) 00:00: mouth in [place] 25 mg Tab 00 the Medical morning. Branch semaglutide 2023-0 Yes [id number] 1mg inject 1 Univers (OZEMPIC) 1 4-11 mg under ity of mg/dose (4 00:00: the skin Ad[place]a as mg/3 mL) 00 weekly. Medical PnIj Branch empaglifloz 3-0 Yes [id number] 25mg Take 1 [facility] in 4-11 tablet by ity of (JARDIANCE) 00:00: mouth in [place] 25 mg Tab 00 the Medical morning. Branch semaglutide 3-0 Yes [id number] 1mg inject 1 Univers (OZEMPIC) 1 4-11 mg under ity of mg/dose (4 00:00: the skin Aditya as mg/3 mL) 00 weekly. Medical PnIj Branch empaglifloz 3-0 Yes [id number] 25mg Take 1 [facility] in 4-11 tablet by ity of (JARDIANCE) 00:00: mouth in [place] 25 mg Tab 00 the Medical morning. Branch semaglutide 3-0 Yes [id number] 1mg inject 1 [facility] (OZEMPIC) 1 4-11 mg under ity of mg/dose (4 00:00: the skin Aditya as mg/3 mL) 00 weekly. Medical PnIj Branch empaglifloz 3-0 Yes [id number] 25mg Take 1 [facility] in 4-11 tablet by ity of (JARDIANCE) 00:00: mouth in [place] 25 mg Tab 00 the Medical morning. Branch semaglutide 3-0 Yes [id number] 1mg inject 1 Univers (OZEMPIC) 1 4-11 mg under ity of mg/dose (4 00:00: the skin Aditya as mg/3 mL) 00 weekly. Medical PnIj Branch empaglifloz 3-0 Yes [id number] 25mg Take 1 [facility] in 4-11 tablet by ity of (JARDIANCE) 00:00: mouth in [place] 25 mg Tab 00 the Medical morning. Branch semaglutide 2023-0 Yes [id number] 1mg inject 1 Univers (OZEMPIC) 1 4-11 mg under ity of mg/dose (4 00:00: the skin Aditya as mg/3 mL) 00 weekly. Medical PnIj Branch empaglifloz 3-0 Yes [id number] 25mg Take 1 [facility] in 4-11 tablet by ity of (JARDIANCE) 00:00: mouth in [place] 25 mg Tab 00 the Medical morning. Branch semaglutide 3-0 Yes [id number] 1mg inject 1 [facility] (OZEMPIC) 1 4-11 mg under ity of mg/dose (4 00:00: the skin Aditya as mg/3 mL) 00 weekly. Medical PnIj Branch empaglifloz 3-0 Yes [id number] 25mg Take 1 [facility] in 4-11 tablet by ity of (JARDIANCE) 00:00: mouth in [place] 25 mg Tab 00 the Medical morning. Branch semaglutide 3-0 Yes [id number] 1mg inject 1 [facility] (OZEMPIC) 1 4-11 mg under ity of mg/dose (4 00:00: the skin Aditya as mg/3 mL) 00 weekly. Medical PnIj Branch empaglifloz 3-0 Yes [id number] 25mg Take 1 [facility] in 4-11 tablet by ity of (JARDIANCE) 00:00: mouth in [place] 25 mg Tab 00 the Medical morning. Branch semaglutide 3-0 Yes [id number] 1mg inject 1 Univers (OZEMPIC) 1 4-11 mg under ity of mg/dose (4 00:00: the skin Aditya as mg/3 mL) 00 weekly. Medical PnIj Branch empaglifloz 3-0 Yes [id number] 25mg Take 1 [facility] in 4-11 tablet by ity of (JARDIANCE) 00:00: mouth in [place] 25 mg Tab 00 the Medical morning. Branch semaglutide 3-0 Yes [id number] 1mg inject 1 Univers (OZEMPIC) 1 4-11 mg under ity of mg/dose (4 00:00: the skin Aditya as mg/3 mL) 00 weekly. Medical PnIj Branch empaglifloz 3-0 Yes [id number] 25mg Take 1 [facility] in 4-11 tablet by ity of (JARDIANCE) 00:00: mouth in [place] 25 mg Tab 00 the Medical morning. Branch semaglutide 2023-0 Yes [id number] 1mg inject 1 Univers (OZEMPIC) 1 4-11 mg under ity of mg/dose (4 00:00: the skin Aditya as mg/3 mL) 00 weekly. Medical PnIj Branch empaglifloz 3-0 Yes [id number] 25mg Take 1 [facility] in 4-11 tablet by ity of (JARDIANCE) 00:00: mouth in [place] 25 mg Tab 00 the Medical morning. Branch semaglutide 3-0 Yes [id number] 1mg inject 1 Univers (OZEMPIC) 1 4-11 mg under ity of mg/dose (4 00:00: the skin Aditya as mg/3 mL) 00 weekly. Medical [facility] Branch erythromyci 3-0 Yes [id number] .5[in_u Place 0.5 Univers n 5 mg/gram 4-11 9107 s] Inches in ity of (0.5 %) 00:00: right eye [place] ophthalmic 00 in the Medical ointment morning Branch and 0.5 Inches in the evening. empaglifloz 2023-0 Yes [id number] 25mg Take 1 [facility] in 4-11 tablet by ity of (JARDIANCE) 00:00: mouth in [place] 25 mg Tab 00 the Medical morning. Branch semaglutide 3-0 Yes [id number] 1mg inject 1 Univers (OZEMPIC) 1 4-11 mg under ity of mg/dose (4 00:00: the skin Aditya as mg/3 mL) 00 weekly. Medical [facility] erythromyci 2022-0 Yes [id number] .5[in_u Place 0.5 Univers n 5 mg/gram 4-11 9107 s] Inches in ity of (0.5 %) 00:00: right eye [place] ophthalmic 00 in the Medical ointment morning Branch and 0.5 Inches in the evening. empaglifloz 3-0 Yes [id number] 25mg Take 1 [facility] in 4-11 tablet by ity of (JARDIANCE) 00:00: mouth in [place] 25 mg Tab 00 the Medical morning. Branch semaglutide 2023-0 Yes [id number] 1mg inject 1 Univers (OZEMPIC) 1 4-11 mg under ity of mg/dose (4 00:00: the skin Aditya as mg/3 mL) 00 weekly. [facility] erythromyci 3-0 Yes [id number] .5[in_u Place 0.5 Univers n 5 mg/gram 4-11 9107 s] Inches in ity of (0.5 %) 00:00: right eye [place] ophthalmic 00 in the Medical ointment morning Branch and 0.5 Inches in the evening. empaglifloz 0 Yes [id number] 25mg Take 1 Univers in 4-11 tablet by ity of (JARDIANCE) 00:00: mouth in [place] 25 mg Tab 00 the Medical morning. Branch semaglutide 0 Yes [id number] 1mg inject 1 [facility] (OZEMPIC) 1 4-11 mg under ity of mg/dose (4 00:00: the skin Aditya as mg/3 mL) 00 weekly. Medical PnIj Branch erythromyci 202- No [id number] .5[in_u Place 0.5 Univers n 5 mg/gram 01-07-20 9107 s] Inches in it y of (0.5 %) 00:00: 00:00 [place] ophthalmic 00 :00 in the Medical ointment morning Branch and 0.5 Inches in the evening. lisinopriL- 0 Yes [id number] 1{tbl} Take 1 [facility] hydrochloro 3-14 tablet by ity of thiazide 00:00: mouth in [place] 20-25 mg 00 the Medical per tablet morning. Bran h flash 2022-0 Yes [id number] 1{each} 1 Each Un leandra glucose 3-14 every 14 ity of sensor 00:00: (fourteen) [place] (FREESTYLE 00 days. Medical CHEY 2 Branch SENSOR) Kit flash 2022-0 Yes [id number] 1{each} 1 Each Un [place]andra glucose 3-14 every 14 ity of sensor 00:00: (fourteen) [place] (FREESTYLE 00 days. Medical CHEY 2 Branch SENSOR) Kit flash 2022-0 Yes [id number] 1{each} 1 Each Un [place] glucose 3-14 every 14 ity of sensor 00:00: (fourteen) [place] (FREESTYLE 00 days. Medical CHEY 2 Branch SENSOR) Kit flash 2022-0 Yes [id number] 1{each} 1 Each Un [place] glucose 3-14 every 14 ity of sensor 00:00: (fourteen) [place] (FREESTYLE 00 days. Medical CHEY 2 Branch SENSOR) Kit flash 2023-0 Yes [id number] 1{each} 1 Each Un [place] glucose 3-14 every 14 ity of sensor 00:00: (fourteen) [place] (FREESTYLE 00 days. Medical CHEY 2 Branch SENSOR) Kit flash 2023-0 Yes [id number] 1{each} 1 Each Un [place] glucose 3-14 every 14 ity of sensor 00:00: (fourteen) [place] (FREESTYLE 00 days. Medical CHEY 2 Branch SENSOR) Kit flash 2023-0 Yes [id number] 1{each} 1 Each Un [place] glucose 3-14 every 14 ity of sensor 00:00: (fourteen) [place] (FREESTYLE 00 days. Medical CHEY 2 Branch SENSOR) Kit flash 2023-0 Yes [id number] 1{each} 1 Each Un [place] glucose 3-14 every 14 ity of sensor 00:00: (fourteen) [place] (FREESTYLE 00 days. Medical CHEY 2 Branch SENSOR) Kit flash 2023-0 Yes [id number] 1{each} 1 Each Un leadnra glucose 3-14 every 14 ity of sensor 00:00: (fourteen) [place] (FREESTYLE 00 days. Medical CHEY 2 Branch SENSOR) Kit flash 2023-0 Yes [id number] 1{each} 1 Each Un [place] glucose 3-14 every 14 ity of sensor 00:00: (fourteen) [place] (FREESTYLE 00 days. Medical CHEY 2 Branch SENSOR) Kit flash 2023-0 Yes [id number] 1{each} 1 Each Un [place] glucose 3-14 every 14 ity of sensor 00:00: (fourteen) [place] (FREESTYLE 00 days. Medical CHEY 2 Branch SENSOR) Kit flash 2023-0 Yes [id number] 1{each} 1 Each Un [place] glucose 3-14 every 14 ity of sensor 00:00: (fourteen) [place] (FREESTYLE 00 days. Medical CHEY 2 Branch SENSOR) Kit flash 2023-0 Yes [id number] 1{each} 1 Each Un [place] glucose 3-14 every 14 ity of sensor 00:00: (fourteen) [place] (FREESTYLE 00 days. Medical CHEY 2 Branch SENSOR) Kit flash 2023-0 Yes [id number] 1{each} 1 Each Un [place] glucose 3-14 every 14 ity of sensor 00:00: (fourteen) [place] (FREESTYLE 00 days. Medical CHEY 2 Branch SENSOR) Kit flash 2023-0 Yes [id number] 1{each} 1 Each Un [place] glucose 3-14 every 14 ity of sensor 00:00: (fourteen) [place] (FREESTYLE 00 days. Medical CHEY 2 Branch SENSOR) Kit flash 2023-0 Yes [id number] 1{each} 1 Each Un [place] glucose 3-14 every 14 ity of sensor 00:00: (fourteen) [place] (FREESTYLE 00 days. Medical CHEY 2 Branch SENSOR) Kit flash 2023-0 Yes [id number] 1{each} 1 Each Un [place] glucose 3-14 every 14 ity of sensor 00:00: (fourteen) [place] (FREESTYLE 00 days. Medical CHEY 2 Branch SENSOR) Kit flash 2023-0 Yes [id number] 1{each} 1 Each Un [place] glucose 3-14 every 14 ity of sensor 00:00: (fourteen) [place] (FREESTYLE 00 days. Medical CHEY 2 Branch SENSOR) Kit flash 2023-0 Yes [id number] 1{each} 1 Each Un [place] glucose 3-14 every 14 ity of sensor 00:00: (fourteen) [place] (FREESTYLE 00 days. Medical CHEY 2 Branch SENSOR) Kit flash 2023-0 Yes [id number] 1{each} 1 Each Un [place] glucose 3-14 every 14 ity of sensor 00:00: (fourteen) [place] (FREESTYLE 00 days. Medical CHEY 2 Branch SENSOR) Kit flash 2023-0 Yes [id number] 1{each} 1 Each Un [place] glucose 3-14 every 14 ity of sensor 00:00: (fourteen) [place] (FREESTYLE 00 days. Medical CHEY 2 Branch SENSOR) Kit flash 2023-0 Yes [id number] 1{each} 1 Each Un [place] glucose 3-14 every 14 ity of sensor 00:00: (fourteen) [place] (FREESTYLE 00 days. Medical CHEY 2 Branch SENSOR) Kit flash 2023-0 Yes [id number] 1{each} 1 Each Un [place] glucose 3-14 every 14 ity of sensor 00:00: (fourteen) [place] (FREESTYLE 00 days. Medical CHEY 2 Branch SENSOR) Kit flash 2023-0 Yes [id number] 1{each} 1 Each Un [place] glucose 3-14 every 14 ity of sensor 00:00: () (. Medical CHEY 2 Branch SENSOR) Kit semaglutide 3-0 Yes [id number] .5mg inject 0.5 Univers (OZEMPIC) 3-14 mg under ity of 0.25 mg or 00:00: the skin Aditya as 0.5 mg(2 00 weekly. Medical mg/1.5 mL) Branch PnIj lisinopriL- 3-0 Yes [id number] 1{tbl} Take 1 Univers hydrochloro 3-14 tablet by ity of thiazide 00:00: mouth in 20-25 mg 00 the Medical per tablet morning. Branc h flash 2022-0 Yes [id number] 1{each} 1 Each Un leandra glucose 3-14 every 14 ity of sensor 00:00: () [place] (. Medical CHEY 2 Branch SENSOR) Kit semaglutide 3-0 Yes [id number] .5mg inject 0.5 Univers (OZEMPIC) 3-14 mg under ity of 0.25 mg or 00:00: the skin Aditya as 0.5 mg(2 00 weekly. Medical mg/1.5 mL) Branch PnIj lisinopriL- 2022-0 Yes [id number] 1{tbl} Take 1 Univers hydrochloro 3-14 tablet by ity of thiazide 00:00: mouth in [place] 20-25 mg 00 the Medical per tablet morning. Branc h flash 2022-0 Yes [id number] 1{each} 1 Each Un leandra glucose 3-14 every 14 ity of sensor 00:00: () [place] (. Medical CHEY 2 Branch SENSOR) Kit semaglutide 3-0 Yes [id number] .5mg inject 0.5 Univers (OZEMPIC) 3-14 mg under ity of 0.25 mg or 00:00: the skin Aditya as 0.5 mg(2 00 weekly. Medical mg/1.5 mL) Branch PnIj lisinopriL- 3-0 Yes [id number] 1{tbl} Take 1 Univers hydrochloro 3-14 tablet by ity of thiazide 00:00: mouth in [place] 20-25 mg 00 the Medical per tablet morning. Branc h flash 2022-0 Yes [id number] 1{each} 1 Each Un leandra glucose 3-14 every 14 ity of sensor 00:00: () [place] (. Medical CHEY 2 Branch SENSOR) Kit semaglutide 2022-0 Yes [id number] .5mg inject 0.5 Univers (OZEMPIC) 3-14 mg under ity of 0.25 mg or 00:00: the skin Aditya as 0.5 mg(2 00 weekly. Medical mg/1.5 mL) Branch PnIj lisinopriL- 2022-0 Yes [id number] 1{tbl} Take 1 Univers hydrochloro 3-14 tablet by ity of thiazide 00:00: mouth in 20-25 mg 00 the Medical per tablet morning. [facility] h flash 2022-0 Yes [id number] 1{each} 1 Each Un leandra glucose 3-14 every 14 ity of sensor 00:00: () [place] (. Medical CHEY 2 Branch SENSOR) Kit semaglutide 2022-0 Yes [id number] .5mg inject 0.5 Univers (OZEMPIC) 3-14 mg under ity of 0.25 mg or 00:00: the skin Aditya as 0.5 mg(2 00 weekly. Medical mg/1.5 mL) Branch PnIj lisinopriL- 2022-0 Yes [id number] 1{tbl} Take 1 Univers hydrochloro 3-14 tablet by ity of thiazide 00:00: mouth in 20-25 mg 00 the Medical per tablet morning. [facility] h flash 2022-0 Yes [id number] 1{each} 1 Each Un leandra glucose 3-14 every 14 ity of sensor 00:00: (fourteen) [place] (YLE . Medical CHEY 2 Branch SENSOR) Kit semaglutide 3-0 Yes [id number] .5mg inject 0.5 Univers (OZEMPIC) 3-14 mg under ity of 0.25 mg or 00:00: the skin Aditya as 0.5 mg(2 00 weekly. Medical mg/1.5 mL) Branch PnIj lisinopriL- 3-0 Yes [id number] 1{tbl} Take 1 Univers hydrochloro 3-14 tablet by ity of thiazide 00:00: mouth in [place] 20-25 mg 00 the Medical per tablet morning. Bran h flash 2022-0 Yes [id number] 1{each} 1 Each Un leandra glucose 3-14 every 14 ity of sensor 00:00: () [place] (. Medical CHEY 2 Branch SENSOR) Kit semaglutide 2022-0 Yes [id number] .5mg inject 0.5 Univers (OZEMPIC) 3-14 mg under ity of 0.25 mg or 00:00: the skin Aditya as 0.5 mg(2 00 weekly. Medical mg/1.5 mL) Branch PnIj lisinopriL- 2022-0 Yes [id number] 1{tbl} Take 1 [facility] hydrochloro 3-14 tablet by ity of thiazide 00:00: mouth in [place] 20-25 mg 00 the Medical per tablet morning. Bran h flash 2022-0 Yes [id number] 1{each} 1 Each Un leandra glucose 3-14 every 14 ity of sensor 00:00: () [place] (. Medical CHEY 2 Branch SENSOR) Kit semaglutide 2022-0 Yes [id number] .5mg inject 0.5 Univers (OZEMPIC) 3-14 mg under ity of 0.25 mg or 00:00: the skin Aditya as 0.5 mg(2 00 weekly. Medical mg/1.5 mL) Branch PnIj lisinopriL- 2022-0 Yes [id number] 1{tbl} Take 1 [facility] hydrochloro 3-14 tablet by ity of thiazide 00:00: mouth in [place] 20-25 mg 00 the Medical per tablet morning. Bran h flash 2022-0 Yes [id number] 1{each} 1 Each Un leandra glucose 3-14 every 14 ity of sensor 00:00: () [place] (YLE . Medical CHEY 2 Branch SENSOR) Kit semaglutide 3-0 Yes [id number] .5mg inject 0.5 Univers (OZEMPIC) 3-14 mg under ity of 0.25 mg or 00:00: the skin Aditya as 0.5 mg(2 00 weekly. Medical mg/1.5 mL) Branch PnIj lisinopriL- 3-0 Yes [id number] 1{tbl} Take 1 [facility] hydrochloro 3-14 tablet by ity of thiazide 00:00: mouth in [place] 20-25 mg 00 the Medical per tablet morning. Branc h flash 3-0 Yes [id number] 1{each} 1 Each Un [place] glucose 3-14 every 14 ity of sensor 00:00: (fourteen) [place] (STYLE . Medical CHEY 2 Branch SENSOR) Kit lisinopriL- 2023-0 Yes [id number] 1{tbl} Take 1 [facility] hydrochloro 3-14 tablet by ity of thiazide 00:00: mouth in [place] 20-25 mg 00 the Medical per tablet morning. Branc h flash 3-0 Yes [id number] 1{each} 1 Each Un [place] glucose 3-14 every 14 ity of sensor 00:00: () [place] (YLE . Medical CHEY 2 Branch SENSOR) Kit lisinopriL- 2023-0 Yes [id number] 1{tbl} Take 1 [facility] hydrochloro 3-14 tablet by ity of thiazide 00:00: mouth in [place] 20-25 mg 00 the Medical per tablet morning. Branc h flash 2022-0 Yes [id number] 1{each} 1 Each Un [place] glucose 3-14 every 14 ity of sensor 00:00: () [place] (YLE . Medical CHEY 2 Branch SENSOR) Kit lisinopriL- 3-0 Yes [id number] 1{tbl} Take 1 [facility] hydrochloro 3-14 tablet by ity of thiazide 00:00: mouth in [place] 20-25 mg 00 the Medical per tablet morning. Branc h flash 2022-0 Yes [id number] 1{each} 1 Each Un [place] glucose 3-14 every 14 ity of sensor 00:00: () [place] (STYLE . Medical CHEY 2 Branch SENSOR) Kit lisinopriL- 2023-0 Yes [id number] 1{tbl} Take 1 [facility] hydrochloro 3-14 tablet by ity of thiazide 00:00: mouth in [place] 20-25 mg 00 the Medical per tablet morning. Branc h flash 3-0 Yes [id number] 1{each} 1 Each Un [place] glucose 3-14 every 14 ity of sensor 00:00: (fourteen) [place] (STYLE 00 days. Medical CHEY 2 Branch SENSOR) Kit lisinopriL- 2022-0 2022- No [id number] 1{tbl} Take 1 [facility] hydrochloro 3-14 07-06 tablet by it y of thiazide 00:00[place] 20-25 mg 00 :00 the Medical per tablet morning. [facility] lisinopriL- 2022-0 3- No [id number] 1{tbl} Take 1 [facility] hydrochloro 3-14 07-06 tablet by it y of thiazide 00:00[place] 20-[place] mg 00 :00 the Medical per tablet morning. [facility] semaglutide 2022-0 2022- No [id number] .5mg inject 0.5 [facility] (OZEMPIC) 3-14 04-11 mg under ity o f 0.25 mg or 00:00: 00:00 the skin [place] 0.5 mg(2 00 :00 weekly. Medical mg/1.5 mL) Branch PnIj semaglutide 2022-0 2022- No [id number] .5mg inject 0.5 [facility] (OZEMPIC) 3-14 04-11 mg under ity o f 0.25 mg or 00:00: 00:00 the skin [place] 0.5 mg(2 00 :00 weekly. Medical mg/1.5 mL) Branch PnIj Insulin 2022-0 Yes Use as [facility] [place], 2-15 directed ity of Disposable, 00:00: [place] (LAN PEN 00 Medical NEEDLE) 32 Branch gauge x 5/32" Ndle Insulin 2022-0 Yes Use as [facility] [place], 2-15 directed ity of Disposable, 00:00: [place] (LAN PEN 00 Medical NEEDLE) 32 Branch gauge x 5/32" Ndle Insulin 2022-0 Yes Use as [facility] [place], 2-15 directed ity of Disposable, 00:00: [place] (LAN PEN 00 Medical NEEDLE) 32 Branch gauge x 5/32" Ndle Insulin 2022-0 Yes Use as [facility] [place], 2-15 directed ity of Disposable, 00:00: [place] (LAN PEN 00 Medical NEEDLE) 32 Branch gauge x 5/32" Ndle Insulin 2022-0 Yes Use as [facility] [place], 2-15 directed ity of Disposable, 00:00: [place] (LAN PEN 00 Medical NEEDLE) 32 Branch gauge x 5/32" Ndle Insulin 2023-0 Yes Use as [facility] [place], 2-15 directed ity of Disposable, 00:00: [place] (LAN PEN 00 Medical NEEDLE) 32 Branch gauge x 5/32" Ndle Insulin 2023-0 Yes Use as [facility] [place], 2-15 directed ity of Disposable, 00:00: [place] (LAN PEN 00 Medical NEEDLE) 32 Branch gauge x 5/32" Ndle Insulin 2023-0 Yes Use as [facility] [place], 2-15 directed ity of Disposable, 00:00: [place] (LAN PEN 00 Medical NEEDLE) 32 Branch gauge x 5/32" Ndle Insulin 2022-0 Yes Use as [facility] [place], 2-15 directed ity of Disposable, 00:00: [place] (LAN PEN 00 Medical NEEDLE) 32 Branch gauge x 5/32" Ndle Insulin 2022-0 Yes Use as [facility] [place], 2-15 directed ity of Disposable, 00:00: [place] (LAN PEN 00 Medical NEEDLE) 32 Branch gauge x 5/32" Ndle Insulin 2022-0 Yes Use as [facility] [place], 2-15 directed ity of Disposable, 00:00: [place] (LAN PEN 00 Medical NEEDLE) 32 Branch gauge x 5/32" Ndle Insulin 3-0 Yes Use as [facility] [place], 2-15 directed ity of Disposable, 00:00: [place] (LAN PEN 00 Medical NEEDLE) 32 Branch gauge x 5/32" Ndle Insulin 3-0 Yes Use as [facility] [place], 2-15 directed ity of Disposable, 00:00: [place] (LAN PEN 00 Medical NEEDLE) 32 Branch gauge x 5/32" Ndle Insulin 2023-0 Yes Use as [facility] [place], 2-15 directed ity of Disposable, 00:00: [place] (LAN PEN 00 Medical NEEDLE) 32 Branch gauge x 5/32" Ndle Insulin 2023-0 Yes Use as [facility] [place], 2-15 directed ity of Disposable, 00:00: [place] (LAN PEN 00 Medical NEEDLE) 32 Branch gauge x 5/32" Ndle Insulin 2023-0 Yes Use as [facility] [place], 2-15 directed ity of Disposable, 00:00: [place] (LAN PEN 00 Medical NEEDLE) 32 Branch gauge x 5/32" Ndle Insulin 2023-0 Yes Use as [facility] [place], 2-15 directed ity of Disposable, 00:00: [place] (LAN PEN 00 Medical NEEDLE) 32 Branch gauge x 5/32" Ndle Insulin 2023-0 Yes Use as [facility] [place], 2-15 directed ity of Disposable, 00:00: [place] (LAN PEN 00 Medical NEEDLE) 32 Branch gauge x 5/32" Ndle Insulin 2023-0 Yes Use as [facility] [place], 2-15 directed ity of Disposable, 00:00: [place] (LAN PEN 00 Medical NEEDLE) 32 Branch gauge x 5/32" Ndle Insulin 2023-0 Yes Use as [facility] [place], 2-15 directed ity of Disposable, 00:00: [place] (LAN PEN 00 Medical NEEDLE) 32 Branch gauge x 5/32" Ndle Insulin 2023-0 Yes Use as [facility] [place], 2-15 directed ity of Disposable, 00:00: [place] (LAN PEN 00 Medical NEEDLE) 32 Branch gauge x 5/32" Ndle Insulin 2023-0 Yes Use as [facility] [place], 2-15 directed ity of Disposable, 00:00: [place] (LAN PEN 00 Medical NEEDLE) 32 Branch gauge x 5/32" Ndle Insulin 2023-0 Yes Use as [facility] [place], 2-15 directed ity of Disposable, 00:00: [place] (LAN PEN 00 Medical NEEDLE) 32 Branch gauge x 5/32" Ndle Insulin 2023-0 Yes Use as [facility] [place], 2-15 directed ity of Disposable, 00:00: [place] (LAN PEN 00 Medical NEEDLE) 32 Branch gauge x 5/32" Ndle Insulin 2023-0 Yes Use as [facility] [place], 2-15 directed ity of Disposable, 00:00: [place] (LAN PEN 00 Medical NEEDLE) 32 Branch gauge x 5/32" Ndle Insulin 2023-0 Yes Use as [facility] [place], 2-15 directed ity of Disposable, 00:00: [place] (LAN PEN 00 Medical NEEDLE) 32 Branch gauge x 5/32" Ndle Insulin 2023-0 Yes Use as [facility] [place], 2-15 directed ity of Disposable, 00:00: [place] (LAN PEN 00 Medical NEEDLE) 32 Branch gauge x 5/32" Ndle Insulin 2023-0 Yes Use as [facility] [place], 2-15 directed ity of Disposable, 00:00: [place] (LAN PEN 00 Medical NEEDLE) 32 Branch gauge x 5/32" Ndle Insulin 2023-0 Yes Use as [facility] [place], 2-15 directed ity of Disposable, 00:00: [place] (LAN PEN 00 Medical NEEDLE) 32 Branch gauge x 5/32" Ndle Insulin 2022-0 Yes Use as [facility] [place], 2-15 directed ity of Disposable, 00:00: [place] (LAN PEN 00 Medical NEEDLE) 32 Branch gauge x 5/32" Ndle Insulin 2022-0 Yes Use as [facility] [place], 2-15 directed ity of Disposable, 00:00: [place] (LAN PEN 00 Medical NEEDLE) 32 Branch gauge x 5/32" Ndle Insulin 2022-0 Yes Use as [facility] [place], 2-15 directed ity of Disposable, 00:00: [place] (LAN PEN 00 Medical NEEDLE) 32 Branch gauge x 5/32" Ndle Insulin 2022-0 Yes Use as [facility] [place], 2-15 directed ity of Disposable, 00:00: [place] (LAN PEN 00 Medical NEEDLE) 32 Branch gauge x 5/32" Ndle Insulin 2022-0 Yes Use as [facility] [place], 2-15 directed ity of Disposable, 00:00: [place] (LAN PEN 00 Medical NEEDLE) 32 Branch gauge x 5/32" Ndle Insulin 2022-0 Yes Use as [facility] [place], 2-15 directed ity of Disposable, 00:00: [place] (LAN PEN 00 Medical NEEDLE) 32 Branch gauge x 5/32" Ndle Insulin 2022-0 Yes Use as [facility] [place], 2-15 directed ity of Disposable, 00:00: [place] (LAN PEN 00 Medical NEEDLE) 32 Branch gauge x 5/32" Ndle Insulin 2022-0 Yes Use as [facility] [place], 2-15 directed ity of Disposable, 00:00: [place] (LAN PEN 00 Medical NEEDLE) 32 Branch gauge x 5/32" Ndle Insulin 2022-0 Yes Use as [facility] [place], 2-15 directed ity of Disposable, 00:00: [place] (LAN PEN 00 Medical NEEDLE) 32 Branch gauge x 5/32" Ndle Insulin 2022-0 Yes Use as [facility] [place], 2-15 directed ity of Disposable, 00:00: [place] (LAN PEN 00 Medical NEEDLE) 32 Branch gauge x 5/32" Ndle Insulin NPH 2022-0 Yes [id number] 5U inject 5 [facility] 2-09 Units ity of Recomb 00:00: under the [place] (HUMULIN N 00 skin every Med ical NPH INSULIN morning. Randell VAN) Check your 100 unit/mL fasting (3 mL) blood injection glucose each morning. If the number is 130-200 for 3 days, I would like you to increase your current insulin dose by 2 units. If your fasting blood sugar is > 200 for three days, you can increase it by 4 units. pioglitazon 3-0 Yes [id number] 1{tbl} Take 1 [facility] e-metformin 2-09 tablet by ity of 15-850 mg 00:00: [place] per tablet 00 the Medical morning Branch and 1 tablet in the evening. Take with meals. Start with 1 by mouth in the morning for a week, then week 2, one in morning and evening pioglitazon 2023-0 Yes [id number] 1{tbl} Take 1 [facility] e-metformin 2-09 tablet by ity of 15-850 mg 00:00: mouth [place] per tablet 00 the Medical morning Branch and 1 tablet in the evening. Take with meals. Start with 1 by mouth in the morning for a week, then week 2, one in morning and evening pioglitazon 2023-0 Yes [id number] 1{tbl} Take 1 [facility] e-metformin 2-09 tablet by ity of 15-850 mg 00:00: mouth [place] per tablet 00 the Medical morning Branch and 1 tablet in the evening. Take with meals. Start with 1 by mouth in the morning for a week, then week 2, one in morning and evening pioglitazon 2023-0 Yes [id number] 1{tbl} Take 1 [facility] e-metformin 2-09 tablet by ity of 15-850 mg 00:00: mouth [place] per tablet 00 the Medical morning Branch and 1 tablet in the evening. Take with meals. Start with 1 by mouth in the morning for a week, then week 2, one in morning and evening pioglitazon 2023-0 Yes [id number] 1{tbl} Take 1 [facility] e-metformin 2-09 tablet by ity of 15-850 mg 00:00: mouth [place] per tablet 00 the Medical morning Branch and 1 tablet in the evening. Take with meals. Start with 1 by mouth in the morning for a week, then week 2, one in morning and evening pioglitazon 2023-0 Yes [id number] 1{tbl} Take 1 [facility] e-metformin 2-09 tablet by ity of 15-850 mg 00:00: mouth [place] per tablet 00 the Medical morning Branch and 1 tablet in the evening. Take with meals. Start with 1 by mouth in the morning for a week, then week 2, one in morning and evening pioglitazon 2023-0 Yes [id number] 1{tbl} Take 1 [facility] e-metformin 2-09 tablet by ity of 15-850 mg 00:00: mouth [place] per tablet 00 the Medical morning Branch and 1 tablet in the evening. Take with meals. Start with 1 by mouth in the morning for a week, then week 2, one in morning and evening pioglitazon 2023-0 Yes [id number] 1{tbl} Take 1 [facility] e-metformin 2-09 tablet by ity of 15-850 mg 00:00: mouth [place] per tablet 00 the Medical morning Branch and 1 tablet in the evening. Take with meals. Start with 1 by mouth in the morning for a week, then week 2, one in morning and evening pioglitazon 2023-0 Yes [id number] 1{tbl} Take 1 [facility] e-metformin 2-09 tablet by ity of 15-850 mg 00:00: mouth in [place] per tablet 00 the Medical morning Branch and 1 tablet in the evening. Take with meals. Start with 1 by mouth in the morning for a week, then week 2, one in morning and evening pioglitazon 2023-0 Yes [id number] 1{tbl} Take 1 [facility] e-metformin 2-09 tablet by ity of 15-850 mg 00:00: mouth [place] per tablet 00 the Medical morning Branch and 1 tablet in the evening. Take with meals. Start with 1 by mouth in the morning for a week, then week 2, one in morning and evening pioglitazon 2023-0 Yes [id number] 1{tbl} Take 1 [facility] e-metformin 2-09 tablet by ity of 15-850 mg 00:00: mouth [place] per tablet 00 the Medical morning Branch and 1 tablet in the evening. Take with meals. Start with 1 by mouth in the morning for a week, then week 2, one in morning and evening pioglitazon 2023-0 Yes [id number] 1{tbl} Take 1 [facility] e-metformin 2-09 tablet by ity of 15-850 mg 00:00: mouth [place] per tablet 00 the Medical morning Branch and 1 tablet in the evening. Take with meals. Start with 1 by mouth in the morning for a week, then week 2, one in morning and evening pioglitazon 2023-0 Yes [id number] 1{tbl} Take 1 [facility] e-metformin 2-09 tablet by ity of 15-850 mg 00:00: mouth [place] per tablet 00 the Medical morning Branch and 1 tablet in the evening. Take with meals. Start with 1 by mouth in the morning for a week, then week 2, one in morning and evening pioglitazon 2023-0 Yes [id number] 1{tbl} Take 1 [facility] e-metformin 2-09 tablet by ity of 15-850 mg 00:00: mouth [place] per tablet 00 the Medical morning Branch and 1 tablet in the evening. Take with meals. Start with 1 by mouth in the morning for a week, then week 2, one in morning and evening pioglitazon 2023-0 Yes [id number] 1{tbl} Take 1 [facility] e-metformin 2-09 tablet by ity of 15-850 mg 00:00: mouth [place] per tablet 00 the Medical morning Branch and 1 tablet in the evening. Take with meals. Start with 1 by mouth in the morning for a week, then week 2, one in morning and evening pioglitazon 2023-0 Yes [id number] 1{tbl} Take 1 [facility] e-metformin 2-09 tablet by ity of 15-850 mg 00:00: mouth [place] per tablet 00 the Medical morning Branch and 1 tablet in the evening. Take with meals. Start with 1 by mouth in the morning for a week, then week 2, one in morning and evening pioglitazon 2023-0 Yes [id number] 1{tbl} Take 1 [facility] e-metformin 2-09 tablet by ity of 15-850 mg 00:00: mouth [place] per tablet 00 the Medical morning Branch and 1 tablet in the evening. Take with meals. Start with 1 by mouth in the morning for a week, then week 2, one in morning and evening pioglitazon 2023-0 Yes [id number] 1{tbl} Take 1 [facility] e-metformin 2-09 tablet by ity of 15-850 mg 00:00: mouth [place] per tablet 00 the Medical morning Branch and 1 tablet in the evening. Take with meals. Start with 1 by mouth in the morning for a week, then week 2, one in morning and evening pioglitazon 2023-0 Yes [id number] 1{tbl} Take 1 [facility] e-metformin 2-09 tablet by ity of 15-850 mg 00:00: mouth [place] per tablet 00 the Medical morning Branch and 1 tablet in the evening. Take with meals. Start with 1 by mouth in the morning for a week, then week 2, one in morning and evening pioglitazon 3-0 Yes [id number] 1{tbl} Take 1 [facility] e-metformin 2-09 tablet by ity of 15-850 mg 00:00: mouth [place] per tablet 00 the Medical morning Branch and 1 tablet in the evening. Take with meals. Start with 1 by mouth in the morning for a week, then week 2, one in morning and evening pioglitazon 3-0 Yes [id number] 1{tbl} Take 1 [facility] e-metformin 2-09 tablet by ity of 15-850 mg 00:00: mouth [place] per tablet 00 the Medical morning Branch and 1 tablet in the evening. Take with meals. Start with 1 by mouth in the morning for a week, then week 2, one in morning and evening pioglitazon 3-0 Yes [id number] 1{tbl} Take 1 [facility] e-metformin 2-09 tablet by ity of 15-850 mg 00:00: mouth [place] per tablet 00 the Medical morning Branch and 1 tablet in the evening. Take with meals. Start with 1 by mouth in the morning for a week, then week 2, one in morning and evening pioglitazon 2023-0 Yes [id number] 1{tbl} Take 1 [facility] e-metformin 2-09 tablet by ity of 15-850 mg 00:00: mouth [place] per tablet 00 the Medical morning Branch and 1 tablet in the evening. Take with meals. Start with 1 by mouth in the morning for a week, then week 2, one in morning and evening pioglitazon 2022-0 Yes [id number] 1{tbl} Take 1 [facility] e-metformin 2-09 tablet by ity of 15-850 mg 00:00: mouth [place] per tablet 00 the Medical morning Branch and 1 tablet in the evening. Take with meals. Start with 1 by mouth in the morning for a week, then week 2, one in morning and evening Insulin NPH Yes [id number] 5U inject 5 [facility] Human 2-09 Units ity of Recomb 00:00: under the [place] (HUMULIN N 00 skin every Med ical NPH INSULIN morning. Randell REHAN) Check your 100 unit/mL fasting (3 mL) blood injection glucose each morning. If the number is 130-200 for 3 days, I would like you to increase your current insulin dose by 2 units. If your fasting blood sugar is > 200 for three days, you can increase it by 4 units. semaglutide Yes [id number] .25mg inject [facility] (OZEMPIC) 2-09 0.25 mg ity of 0.25 mg or 00:00: [place] 0.5 mg(2 00 skin Medical mg/1.5 mL) weekly. Branch PnIj pioglitazon 2022- Yes [id number] 1{tbl} Take 1 [facility] e-metformin 2-09 tablet by ity of 15-850 mg 00:00: mouth [place] per tablet 00 the Medical morning Branch and 1 tablet in the evening. Take with meals. Start with 1 by mouth in the morning for a week, then week 2, one in morning and evening lisinopriL- 2022-0 Yes [id number] 1{tbl} Take 1 [facility] hydrochloro 2-09 tablet by ity of thiazide 00:00: mouth in [place] 20-25 mg 00 the Medical per tablet morning. Branc h flash 2022-0 Yes [id number] 1{each} 1 Each [facility] [place] glucose 2-09 every 14 ity of sensor 00:00: (fourteen) [place] (FREESTYLE 00 days. Medical CHEY 2 Branch SENSOR) Kit Insulin NPH Yes [id number] 5U inject 5 [facility] Human 2-09 Units ity of Recomb 00:00: under the [place] (HUMULIN N 00 skin every Med ical NPH INSULIN morning. [facility] KWIKPEN) Check your 100 unit/mL fasting (3 mL) blood injection glucose each morning. If the number is 130-200 for 3 days, I would like you to increase your current insulin dose by 2 units. If your fasting blood sugar is > 200 for three days, you can increase it by 4 units. semaglutide 0 Yes [id number] .25mg inject [facility] (OZEMPIC) 2-09 0.25 mg ity of 0.25 mg or 00:00: under the [place] 0.5 mg(2 00 skin Medical mg/1.5 mL) weekly. Branch PnIj pioglitazon 2022- Yes [id number] 1{tbl} Take 1 [facility] e-metformin 2-09 tablet by ity of 15-850 mg 00:00: mouth in [facility] s per tablet 00 the Medical morning Branch and 1 tablet in the evening. Take with meals. Start with 1 by mouth in the morning for a week, then week 2, one in morning and evening lisinopriL- 2022-0 Yes [id number] 1{tbl} Take 1 [facility] hydrochloro 2-09 tablet by ity of thiazide 00:00: mouth in [place] 20-25 mg 00 the Medical per tablet morning. Branc h flash 2022-0 Yes [id number] 1{each} 1 Each [facility] [place] glucose 2-09 every 14 ity of sensor 00:00: (fourteen) [place] (FREESTYLE 00 days. Medical CHEY 2 Branch SENSOR) Kit Insulin NPH Yes [id number] 5U inject 5 [facility] Human 2-09 Units ity of Recomb 00:00: under the [place] (HUMULIN N 00 skin every Med ical NPH INSULIN morning. [facility] KWIKPEN) Check your 100 unit/mL fasting (3 mL) blood injection glucose each morning. If the number is 130-200 for 3 days, I would like you to increase your current insulin dose by 2 units. If your fasting blood sugar is > 200 for three days, you can increase it by 4 units. semaglutide 0 Yes [id number] .25mg inject [facility] (OZEMPIC) 2-09 0.25 mg ity of 0.25 mg or 00:00: under the [place] 0.5 mg(2 00 skin Medical mg/1.5 mL) weekly. Branch PnIj pioglitazon 2022- Yes [id number] 1{tbl} Take 1 [facility] e-metformin 2-09 tablet by ity of 15-850 mg 00:00: [place] per tablet 00 the Medical morning Branch and 1 tablet in the evening. Take with meals. Start with 1 by mouth in the morning for a week, then week 2, one in morning and evening lisinopriL- 2022-0 Yes [id number] 1{tbl} Take 1 [facility] hydrochloro 2-09 tablet by ity of thiazide 00:00: mouth in [place] 20-25 mg 00 the Medical per tablet morning. [facility] h flash Yes [id number] 1{each} 1 Each [facility] [place] glucose 2-09 every 14 ity of sensor 00:00: (fourteen) [place] (FREESTYLE 00 days. Medical CHEY 2 Branch SENSOR) Kit Insulin NPH Yes [id number] 5U inject 5 [facility] Human 2-09 Units ity of Recomb 00:00: under the [place] (HUMULIN N 00 skin every Med ical NPH INSULIN morning. Bran KWIKPEN) Check your 100 unit/mL fasting (3 mL) blood injection glucose each morning. If the number is 130-200 for 3 days, I would like you to increase your current insulin dose by 2 units. If your fasting blood sugar is > 200 for three days, you can increase it by 4 units. semaglutide Yes [id number] .25mg inject [facility] (OZEMPIC) 2-09 0.25 mg ity of 0.25 mg or 00:00: under the [place] 0.5 mg(2 00 skin Medical mg/1.5 mL) weekly. Branch PnIj pioglitazon Yes [id number] 1{tbl} Take 1 [facility] e-metformin 2-09 tablet by ity of 15-850 mg 00:00: [place] per tablet 00 the Medical morning Branch and 1 tablet in the evening. Take with meals. Start with 1 by mouth in the morning for a week, then week 2, one in morning and evening lisinopriL- 2022-0 Yes [id number] 1{tbl} Take 1 [facility] hydrochloro 2-09 tablet by ity of thiazide 00:00: mouth in [place] 20-25 mg 00 the Medical per tablet morning. [facility] flash Yes [id number] 1{each} 1 Each [facility] [place] glucose 2-09 every 14 ity of sensor 00:00: (fourteen) [place] (FREESTYLE 00 days. Medical CHEY 2 Branch SENSOR) Kit Insulin NPH Yes [id number] 5U inject 5 [facility] Human 2-09 Units ity of Recomb 00:00: under the [place] (HUMULIN N 00 skin every Med ical NPH INSULIN morning. Randell corrales KWDREWPEN) Check your 100 unit/mL fasting (3 mL) blood injection glucose each morning. If the number is 130-200 for 3 days, I would like you to increase your current insulin dose by 2 units. If your fasting blood sugar is > 200 for three days, you can increase it by 4 units. semaglutide Yes [id number] .25mg inject [facility] (OZEMPIC) 2-09 0.25 mg ity of 0.25 mg or 00:00: [place] 0[place] mg(2 00 skin Medical mg/1.5 mL) weekly. Branch PnIj pioglitazon Yes [id number] 1{tbl} Take 1 [facility] e-metformin 2-09 tablet by ity of 15-850 mg 00:00: mouth in [facility] s per tablet 00 the Medical morning Branch and 1 tablet in the evening. Take with meals. Start with 1 by mouth in the morning for a week, then week 2, one in morning and evening lisinopriL- Yes [id number] 1{tbl} Take 1 [facility] hydrochloro 2-09 tablet by ity of thiazide 00:00: mouth in [place] 20-25 mg 00 the Medical per tablet morning. [facility] flash Yes [id number] 1{each} 1 Each [facility] [place] glucose 2-09 every 14 ity of sensor 00:00: (fourteen) [place] (FREESTYLE 00 days. Medical CHEY 2 Branch SENSOR) Kit Insulin NPH Yes [id number] 5U inject 5 [facility] Human 2-09 Units ity of Recomb 00:00: under the [place] (HUMULIN N 00 skin every Med ical NPH INSULIN morning. Bran ch KWIKPEN) Check your 100 unit/mL fasting (3 mL) blood injection glucose each morning. If the number is 130-200 for 3 days, I would like you to increase your current insulin dose by 2 units. If your fasting blood sugar is > 200 for three days, you can increase it by 4 units. pioglitazon 2022-0 Yes [id number] 1{tbl} Take 1 [facility] e-metformin 2-09 tablet by ity of 15-850 mg 00:00: [place] per tablet the Medical morning Branch and 1 tablet in the evening. Take with meals. Start with 1 by mouth in the morning for a week, then week 2, one in morning and evening Insulin NPH 2022-0 Yes [id number] 5U inject 5 [facility] Human 2-09 Units ity of Recomb 00:00: under the [place] (HUMULIN N 00 skin every Med ical NPH INSULIN morning. Randell VAN) Check your 100 unit/mL fasting (3 mL) blood injection glucose each morning. If the number is 130-200 for 3 days, I would like you to increase your current insulin dose by 2 units. If your fasting blood sugar is > 200 for three days, you can increase it by 4 units. pioglitazon 2022- Yes [id number] 1{tbl} Take 1 [facility] e-metformin 2-09 tablet by ity of 15-850 mg 00:00: mouth in [place] per tablet the morning and 1 tablet in the evening. Take with meals. Start with 1 by mouth in the morning for a week, then week 2, one in morning and evening Insulin NPH 2022-0 Yes [id number] 5U inject 5 [facility] Human 2-09 Units ity of Recomb 00:00: under the [place] (HUMULIN N 00 skin every Med ical NPH INSULIN morning. Randell corrales KWIKPEN) Check your 100 unit/mL fasting (3 mL) blood injection glucose each morning. If the number is 130-200 for 3 days, I would like you to increase your current insulin dose by 2 units. If your fasting blood sugar is > 200 for three days, you can increase it by 4 units. pioglitazon 2022-0 Yes [id number] 1{tbl} Take 1 [facility] e-metformin 2-09 tablet by ity of 15-850 mg 00:00: [place] in [place] per tablet 00 the Medical morning Branch and 1 tablet in the evening. Take with meals. Start with 1 by mouth in the morning for a week, then week 2, one in morning and evening Insulin NPH 2022-0 Yes [id number] 5U inject 5 [facility] Human 2-09 Units ity of Recomb 00:00: under the [place] (HUMULIN N 00 skin every Med ical NPH INSULIN morning. Randell VAN) Check your 100 unit/mL fasting (3 mL) blood injection glucose each morning. If the number is 130-200 for 3 days, I would like you to increase your current insulin dose by 2 units. If your fasting blood sugar is > 200 for three days, you can increase it by 4 units. pioglitazon 2022-0 Yes [id number] 1{tbl} Take 1 [facility] e-metformin 2-09 tablet by ity of 15-850 mg 00:00: mouth in [place] per tablet 00 the Medical morning Branch and 1 tablet in the evening. Take with meals. Start with 1 by mouth in the morning for a week, then week 2, one in morning and evening Insulin NPH 2022-0 Yes [id number] 5U inject 5 [facility] Human 2-09 Units ity of Recomb 00:00: under the [place] (HUMULIN N 00 skin every Med ical NPH INSULIN morning. Randell VAN) Check your 100 unit/mL fasting (3 mL) blood injection glucose each morning. If the number is 130-200 for 3 days, I would like you to increase your current insulin dose by 2 units. If your fasting blood sugar is > 200 for three days, you can increase it by 4 units. pioglitazon 2022-0 Yes [id number] 1{tbl} Take 1 [facility] e-metformin 2-09 tablet by ity of 15-850 mg 00:00: [place] in [place] per tablet 00 the Medical morning Branch and 1 tablet in the evening. Take with meals. Start with 1 by mouth in the morning for a week, then week 2, one in morning and evening Insulin NPH 2022-0 Yes [id number] 5U inject 5 [facility] Human 2-09 Units ity of Recomb 00:00: under the [place] (HUMULIN N 00 skin every Med ical NPH INSULIN morning. Randell VAN) Check your 100 unit/mL fasting (3 mL) blood injection glucose each morning. If the number is 130-200 for 3 days, I would like you to increase your current insulin dose by 2 units. If your fasting blood sugar is > 200 for three days, you can increase it by 4 units. pioglitazon 2022-0 Yes [id number] 1{tbl} Take 1 [facility] e-metformin 2-09 tablet by ity of 15-850 mg 00:00: [place] per tablet the and 1 tablet in the evening. Take with meals. Start with 1 by mouth in the morning for a week, then week 2, one in morning and evening Insulin NPH 3-0 Yes [id number] 5U inject 5 [facility] Human 2-09 Units ity of Recomb 00:00: under the [place] (HUMULIN N 00 skin every Med ical NPH INSULIN morning. Bran ch KWIKPEN) Check your 100 unit/mL fasting (3 mL) blood injection glucose each morning. If the number is 130-200 for 3 days, I would like you to increase your current insulin dose by 2 units. If your fasting blood sugar is > 200 for three days, you can increase it by 4 units. pioglitazon 2022-0 Yes [id number] 1{tbl} Take 1 [facility] e-metformin 2-09 tablet by ity of 15-850 mg 00:00: mouth [place] per tablet the and 1 tablet in the evening. Take with meals. Start with 1 by mouth in the morning for a week, then week 2, one in morning and evening Insulin NPH 3-0 Yes [id number] 5U inject 5 [facility] Human 2-09 Units ity of Recomb 00:00: under the [place] (HUMULIN N 00 skin every Med ical NPH INSULIN morning. Bran ch KWIKPEN) Check your 100 unit/mL fasting (3 mL) blood injection glucose each morning. If the number is 130-200 for 3 days, I would like you to increase your current insulin dose by 2 units. If your fasting blood sugar is > 200 for three days, you can increase it by 4 units. pioglitazon 2022-0 Yes [id number] 1{tbl} Take 1 [facility] e-metformin 2-09 tablet by ity of 15-850 mg 00:00: [place] per tablet 00 the Medical morning Branch and 1 tablet in the evening. Take with meals. Start with 1 by mouth in the morning for a week, then week 2, one in morning and evening Insulin NPH 3-0 Yes [id number] 5U inject 5 [facility] Human 2-09 Units ity of Recomb 00:00: under the [place] (HUMULIN N 00 skin every Med ical NPH INSULIN morning. Bran ch KWIKPEN) Check your 100 unit/mL fasting (3 mL) blood injection glucose each morning. If the number is 130-200 for 3 days, I would like you to increase your current insulin dose by 2 units. If your fasting blood sugar is > 200 for three days, you can increase it by 4 units. pioglitazon 2022-0 Yes [id number] 1{tbl} Take 1 [facility] e-metformin 2-09 tablet by ity of 15-850 mg 00:00: [place] per tablet 00 the Medical morning Branch and 1 tablet in the evening. Take with meals. Start with 1 by mouth in the morning for a week, then week 2, one in morning and evening Insulin NPH 2022-0 Yes [id number] 5U inject 5 [facility] Human 2-09 Units ity of Recomb 00:00: under the [place] (HUMULIN N 00 skin every Med ical NPH INSULIN morning. Bran ch KWIKPEN) Check your 100 unit/mL fasting (3 mL) blood injection glucose each morning. If the number is 130-200 for 3 days, I would like you to increase your current insulin dose by 2 units. If your fasting blood sugar is > 200 for three days, you can increase it by 4 units. pioglitazon 2022-0 Yes [id number] 1{tbl} Take 1 [facility] e-metformin 2-09 tablet by ity of 15-850 mg 00:00: [place] per tablet 00 the Medical morning Branch and 1 tablet in the evening. Take with meals. Start with 1 by mouth in the morning for a week, then week 2, one in morning and evening Insulin NPH 3-0 Yes [id number] 5U inject 5 [facility] Human 2-09 Units ity of Recomb 00:00: under the [place] (HUMULIN N 00 skin every Med ical NPH INSULIN morning. Bran ch KWIKPEN) Check your 100 unit/mL fasting (3 mL) blood injection glucose each morning. If the number is 130-200 for 3 days, I would like you to increase your current insulin dose by 2 units. If your fasting blood sugar is > 200 for three days, you can increase it by 4 units. pioglitazon 2022-0 Yes [id number] 1{tbl} Take 1 [facility] e-metformin 2-09 tablet by ity of 15-850 mg 00:00: [place] per tablet the and 1 tablet in the evening. Take with meals. Start with 1 by mouth in the morning for a week, then week 2, one in morning and evening Insulin NPH 202-0 Yes [id number] 5U inject 5 [facility] Human 2-09 Units ity of [place] 00:00: under the [place] (HUMULIN N 00 skin every Med ical NPH INSULIN morning. Bran ch KWIKPEN) Check your 100 unit/mL fasting (3 mL) blood injection glucose each morning. If the number is 130-200 for 3 days, I would like you to increase your current insulin dose by 2 units. If your fasting blood sugar is > 200 for three days, you can increase it by 4 units. pioglitazon 2022-0 Yes [id number] 1{tbl} Take 1 [facility] e-metformin 2-09 tablet by ity of 15-850 mg 00:00: mouth [place] per tablet the and 1 tablet in the evening. Take with meals. Start with 1 by mouth in the morning for a week, then week 2, one in morning and evening Insulin NPH 2022-0 Yes [id number] 5U inject 5 [facility] Human 2-09 Units ity of [place] 00:00: under the [place] (HUMULIN N 00 skin every Med ical NPH INSULIN morning. Bran ch KWIKPEN) Check your 100 unit/mL fasting (3 mL) blood injection glucose each morning. If the number is 130-200 for 3 days, I would like you to increase your current insulin dose by 2 units. If your fasting blood sugar is > 200 for three days, you can increase it by 4 units. pioglitazon 2022-0 Yes [id number] 1{tbl} Take 1 [facility] e-metformin 2-09 tablet by ity of 15-850 mg 00:00: mouth [place] per tablet 00 the Medical morning Branch and 1 tablet in the evening. Take with meals. Start with 1 by mouth in the morning for a week, then week 2, one in morning and evening Insulin NPH 2022- No [id number] 5U inject 5 [facility] Human 11-07- Units ity of Recomb 00:00: 00:00 under the [place] (HUMULIN N 00 :00 skin every Med ical NPH INSULIN morning. Randell VAN) Check your 100 unit/mL fasting (3 mL) blood injection glucose each morning. If the number is 130-200 for 3 days, I would like you to increase your current insulin dose by 2 units. If your fasting blood sugar is > 200 for three days, you can increase it by 4 units. Insulin NPH 2022- No [id number] 5U inject 5 [facility] Human 11-07 Units ity of Recomb 00:00: 00:00 under the [place] (HUMULIN N 00 :00 skin every Med ical NPH INSULIN morning. Randell VAN) Check your 100 unit/mL fasting (3 mL) blood injection glucose each morning. If the number is 130-200 for 3 days, I would like you to increase your current insulin dose by 2 units. If your fasting blood sugar is > 200 for three days, you can increase it by 4 units. semaglutide 2022- No [id number] .25mg inject [facility] (OZEMPIC) 11-07 0.25 mg ity of 0.25 mg or 00:00: 00:00 under the [place] 0.5 mg(2 00 :00 skin Medical mg/1.5 mL) weekly. Branch PnIj lisinopriL- 2022- No [id number] 1{tbl} Take 1 [facility] hydrochloro 11-07 tablet by it y of thiazide 00:00: 00:00 [place] 20-25 mg 00 :00 the Medical per tablet morning. Bran h flash 2022- No [id number] 1{each} 1 Each U nivers glucose 11-07- every 14 ity of sensor 00:00: 00:00 (fourteen[place] (FREESTYLE 00 :00 days. Medical CHEY 2 Branch SENSOR) Kit semaglutide 2022- No [id number] .25mg inject [facility] (OZEMPIC) 11-07 0.25 mg ity of 0.25 mg or 00:00: 00:00 under the [place] 0.5 mg(2 00 :00 skin Medical mg/1.5 mL) weekly. Branch PnIj lisinopriL- 2022- No [id number] 1{tbl} Take 1 [facility] hydrochloro 11-07 tablet by it y of thiazide 00:00: 00:00 mouth [place] 20-25 mg 00 :00 the Medical per tablet morning. Bran h flash 2022- No [id number] 1{each} 1 Each U nivers glucose 11-07 every 14 ity of sensor 00:00: 00:[place] ([place]teen[place] (FREESTYLE 00 :00 days. Medical CHEY 2 Branch SENSOR) Kit lisinopril lisinopril No 1 Q1D lisinopril [facility] - 20 [facility] mg-hydrochl mg-hydrochl 00:00: mg-hydroch [facility] orothiazide orothiazide 00 lorothiazi 25 mg 25 mg de 25 mg tablet 1 tablet 1 tablet 1 tablet tablet tablet every day every day every day by oral by oral by oral route. route. route. metformin metformin No 1 BID metformin [facility] 850 mg 850 mg -03 850 mg [facility] tablet 1 tablet 1 00:00: tablet 1 U rology tablet tablet 00 tablet twice a day twice a day twice a by oral by oral day by route. route. oral route. simvastatin simvastatin No 1 Q1D simvastati [facility] 20 mg 20 mg 1-03 n 20 mg [facility] tablet 1 tablet 1 00:00: tablet 1 U rology tablet tablet 00 tablet every day every day every day by oral by oral by oral route. route. route. lisinopril lisinopril No 1 Q1D lisinopril [facility] 20 1-03 20 [facility] mg-hydrochl mg-hydrochl 00:00: mg-hydroch [facility]rology orothiazide orothiazide 00 lorothiazi 25 mg 25 mg de 25 mg tablet 1 tablet 1 tablet 1 tablet tablet tablet every day every day every day by oral by oral by oral route. route. route. metformin metformin 2022-0 No 1 BID metformin [place] 850 mg 850 mg 1-03 850 mg [facility] tablet 1 tablet 1 00:00: tablet 1 U rology tablet tablet 00 tablet twice a day twice a day twice a by oral by oral day by route. route. oral route. simvastatin simvastatin 2022-0 No 1 Q1D simrosietaosman [facility] 20 mg 20 mg 1-03 n 20 mg [facility] tablet 1 tablet 1 00:00: tablet 1 U rology tablet tablet 00 tablet every day every day every day by oral by oral by oral route. route. route. lisinopril lisinopril 2022-0 No 1 Q1D lisinopril [facility] 20 20 1-03 20 [facility] mg-hydrochl mg-hydrochl 00:00: mg-hydroch Urology orothiazide orothiazide 00 lorothiazi 25 mg 25 mg de 25 mg tablet 1 tablet 1 tablet 1 tablet tablet tablet every day every day every day by oral by oral by oral route. route. route. metformin metformin 2022-0 No 1 BID metformin [place] 850 mg 850 mg 1-03 850 mg [facility] tablet 1 tablet 1 00:00: tablet 1 U rology tablet tablet 00 tablet twice a day twice a day twice a by oral by oral day by route. route. oral route. simvastatin simvastatin 2022-0 No 1 Q1D [place] [facility] 20 mg 20 mg 1-03 n 20 mg [place] tablet 1 tablet 1 00:00: tablet 1 U rology tablet tablet 00 tablet every day every day every day by oral by oral by oral route. route. route. semaglutide 2021-0 Yes [id number] 1mg inject 1 [facility] (OZEMPIC) 1 2-01 mg under ity of mg/dose (4 00:00: the skin [place] mg/3 mL) 00 weekly. [facility] Branch semaglutide 2021-0 Yes [id number] 1mg inject 1 Univers (OZEMPIC) 1 2-01 mg under ity of mg/dose (4 00:00: the skin [place] mg/3 mL) 00 weekly. [facility] semaglutide 2021-0 Yes [id number] 1mg inject 1 [facility] (OZEMPIC) 1 2-01 mg under ity of mg/dose (4 00:00: the skin [place] mg/3 mL) 00 weekly. [facility] semaglutide 2021-0 Yes [id number] 1mg inject 1 [facility] (OZEMPIC) 1 2-01 mg under ity of mg/dose (4 00:00: the skin [place] mg/3 mL) 00 weekly. [facility] semaglutide 2021-0 Yes [id number] 1mg inject 1 [facility] (OZEMPIC) 1 2-01 mg under ity of mg/dose (4 00:00: the skin [place] mg/3 mL) 00 weekly. [facility] semaglutide 2021-0 Yes [id number] 1mg inject 1 [facility] (OZEMPIC) 1 2-01 mg under ity of mg/dose (4 00:00: the skin [place] mg/3 mL) 00 weekly. [facility] semaglutide 2021-0 Yes [id number] 1mg inject 1 [facility] (OZEMPIC) 1 2-01 mg under ity of mg/dose (4 00:00: the skin [place] mg/3 mL) 00 weekly. [facility] semaglutide 0 Yes [id number] 1mg inject 1 [facility] (OZEMPIC) 1 2-01 mg under ity of mg/dose (4 00:00: the skin [place] mg/3 mL) 00 weekly. [facility] semaglutide 0 Yes [id number] 1mg inject 1 [facility] (OZEMPIC) 1 2-01 mg under ity of mg/dose (4 00:00: the skin [place] mg/3 mL) 00 weekly. [facility] semaglutide 2021-0 Yes [id number] 1mg inject 1 [facility] (OZEMPIC) 1 2-01 mg under ity of mg/dose (4 00:00: the skin [place] mg/3 mL) 00 weekly. [facility] semaglutide 2021-0 Yes [id number] 1mg inject 1 [facility] (OZEMPIC) 1 2-01 mg under ity of mg/dose (4 00:00: the skin [place] mg/3 mL) 00 weekly. [facility] semaglutide 2021-0 Yes [id number] 1mg inject 1 [facility] (OZEMPIC) 1 2-01 mg under ity of mg/dose (4 00:00: the skin [place] mg/3 mL) 00 weekly. [facility] semaglutide Yes [id number] 1mg inject 1 [facility] (OZEMPIC) 1 2-01 mg under ity of mg/dose (4 00:00: the skin [place] mg/3 mL) 00 weekly. [facility] semaglutide Yes [id number] 1mg inject 1 [facility] (OZEMPIC) 1 2-01 mg under ity of mg/dose (4 00:00: the skin [place] mg/3 mL) 00 weekly. [facility] semaglutide Yes [id number] 1mg inject 1 [facility] (OZEMPIC) 1 2-01 mg under ity of mg/dose (4 00:00: the skin [place] mg/3 mL) 00 weekly. [facility] semaglutide Yes [id number] 1mg inject 1 [facility] (OZEMPIC) 1 2-01 mg under ity of mg/dose (4 00:00: the skin [place] mg/3 mL) 00 weekly. [facility] semaglutide 2022- No [id number] 1mg inject 1 [facility] (OZEMPIC) 1 2-01 02-09 mg under ity of mg/dose (4 00:00: 00:00 the skin [place] mg/3 mL) 00 :00 weekly. [facility] semaglutide 2022- No [id number] 1mg inject 1 [facility] (OZEMPIC) 1 2-01 02-09 mg under ity of mg/dose (4 00:00: 00:00 the skin [place] mg/3 mL) 00 :00 weekly. [facility] pregabalin 2020-09 Yes [id number] 75mg Take 1 Univers (LYRICA) 75 0-15 capsule by it y of mg capsule 00:00: mouth 2 [place] 00 (two) Medical times Branch daily. pregabalin 2020-09 Yes [id number] 75mg Take 1 [facility] (LYRICA) 75 0-15 capsule by it y of mg capsule 00:00: mouth 2 [place] 00 (two) Medical times Branch daily. pregabalin 2020-09 Yes [id number] 75mg Take 1 Univers (LYRICA) 75 0-15 capsule by it y of mg capsule 00:00: mouth 2 [place] 00 (two) Medical times Branch daily. pregabalin 2020-09 Yes [id number] 75mg Take 1 [facility] (LYRICA) 75 0-15 capsule by it y of mg capsule 00:00: mouth 2 [place] 00 (two) Medical times Branch daily. pregabalin 2020-09 Yes [id number] 75mg Take 1 [facility] (LYRICA) 75 0-15 capsule by it y of mg capsule 00:00: mouth [place] 00 (two) Medical times Branch daily. pregabalin 2020-09 Yes [id number] 75mg Take 1 [facility] (LYRICA) 75 0-15 capsule by it y of mg capsule 00:00: mouth [place] 00 (two) Medical times Branch daily. pregabalin 2020-09 Yes [id number] 75mg Take 1 [facility] (LYRICA) 75 0-15 capsule by it y of mg capsule 00:00: mouth 2 [place] 00 (two) Medical times Branch daily. pregabalin 2020-09 Yes [id number] 75mg Take 1 [facility] (LYRICA) 75 0-15 capsule by it y of mg capsule 00:00: mouth 2 [place] 00 (two) Medical times Branch daily. pregabalin 2020-09 Yes [id number] 75mg Take 1 [facility] (LYRICA) 75 0-15 capsule by it y of mg capsule 00:00: mouth 2 [place] 00 (two) Medical times Branch daily. pregabalin 2020-09 Yes [id number] 75mg Take 1 [facility] (LYRICA) 75 0-15 capsule by it y of mg capsule 00:00: mouth [place] 00 (two) Medical times Branch daily. pregabalin 2020-09 Yes [id number] 75mg Take 1 [facility] (LYRICA) 75 0-15 capsule by it y of mg capsule 00:00: mouth 2 [place] 00 (two) Medical times Branch daily. pregabalin 2020-09 Yes [id number] 75mg Take 1 [facility] (LYRICA) 75 0-15 capsule by it y of mg capsule 00:00: mouth 2 [place] 00 (two) Medical times Branch daily. pregabalin 2020-09 Yes [id number] 75mg Take 1 [facility] (LYRICA) 75 0-15 capsule by it y of mg capsule 00:00: mouth 2 [place] 00 (two) Medical times Branch daily. pregabalin 2020-09 Yes [id number] 75mg Take 1 [facility] (LYRICA) 75 0-15 capsule by it y of mg capsule 00:00: mouth 2 [place] 00 (two) Medical times Branch daily. pregabalin 2020-09 Yes [id number] 75mg Take 1 [facility] (LYRICA) 75 0-15 capsule by it y of mg capsule 00:00: mouth 2 [place] 00 (two) Medical times Branch daily. pregabalin 2020-09 Yes [id number] 75mg Take 1 [facility] (LYRICA) 75 0-15 capsule by it y of mg capsule 00:00: mouth 2 [place] 00 (two) Medical times Branch daily. pregabalin 2020-09 Yes [id number] 75mg Take 1 [facility] (LYRICA) 75 0-15 capsule by it y of mg capsule 00:00: mouth 2 [place] 00 (two) Medical times Branch daily. pregabalin 2020-09 Yes [id number] 75mg Take 1 [facility] (LYRICA) 75 0-15 capsule by it y of mg capsule 00:00: mouth [place] 00 (two) Medical times Branch daily. pregabalin 2020-09 Yes [id number] 75mg Take 1 [facility] (LYRICA) 75 0-15 capsule by it y of mg capsule 00:00: mouth 2 [place] 00 (two) Medical times Branch daily. pregabalin 2020-09 Yes [id number] 75mg Take 1 [facility] (LYRICA) 75 0-15 capsule by it y of mg capsule 00:00: mouth [place] 00 (two) Medical times Branch daily. pregabalin 2020-09 Yes [id number] 75mg Take 1 [facility] (LYRICA) 75 0-15 capsule by it y of mg capsule 00:00: mouth [place] 00 (two) Medical times Branch daily. pregabalin 2020-09 Yes [id number] 75mg Take 1 [facility] (LYRICA) 75 0-15 capsule by it y of mg capsule 00:00: mouth [place] 00 (two) Medical times Branch daily. pregabalin 2020-09- No [id number] 75mg Take 1 [facility] (LYRICA) 75 0-15 03-14 capsule by i ty of mg capsule 00:00: 00:00 mouth 2 [place] 00 :00 (two) Medical times Branch daily. pregabalin 2020-09- No [id number] 75mg Take 1 Univers (LYRICA) 75 0-15 03-14 capsule by i ty of mg capsule 00:00: 00:00 mouth 2 [place] 00 :00 (two) Medical times Branch daily. JARDIANCE Yes [id number] 25mg TAKE 25 MG Univers 25 mg Tab 7-27 BY MOUTH ity of 00:00: DAILY. [facility] Branch JARDIANCE Yes [id number] 25mg TAKE 25 MG Univers 25 mg Tab 7-27 BY MOUTH ity of 00:00: DAILY. [facility] Branch JARDIANCE Yes [id number] 25mg TAKE 25 MG Univers 25 mg Tab 7-27 BY MOUTH ity of 00:00: DAILY. [facility] Branch JARDIANCE Yes [id number] 25mg TAKE 25 MG Univers 25 mg Tab 7-27 BY MOUTH ity of 00:00: DAILY. [facility] Branch JARDIANCE Yes [id number] 25mg TAKE 25 MG Univers 25 mg Tab 7-27 BY MOUTH ity of 00:00: DAILY. [facility] Branch JARDIANCE Yes [id number] 25mg TAKE 25 MG Univers 25 mg Tab 7-27 BY MOUTH ity of 00:00: DAILY. [facility] Branch JARDIANCE Yes [id number] 25mg TAKE 25 MG Univers 25 mg Tab 7-27 BY MOUTH ity of 00:00: DAILY. [facility] Branch JARDIANCE Yes [id number] 25mg TAKE 25 MG Univers 25 mg Tab 7-27 BY MOUTH ity of 00:00: DAILY. [facility] Branch JARDIANCE Yes [id number] 25mg TAKE 25 MG Univers 25 mg Tab 7-27 BY MOUTH ity of 00:00: DAILY. [facility] Branch JARDIANCE Yes [id number] 25mg TAKE 25 MG Univers 25 mg Tab 7-27 BY MOUTH ity of 00:00: DAILY. [facility] Branch JARDIANCE Yes [id number] 25mg TAKE 25 MG Univers 25 mg Tab 7-27 BY MOUTH ity of 00:00: DAILY. [facility] Branch JARDIANCE Yes [id number] 25mg TAKE 25 MG Univers 25 mg Tab 7-27 BY MOUTH ity of 00:00: DAILY. [facility] [place] [facility] JARDIANCE Yes [id number] 25mg TAKE 25 MG Univers 25 mg Tab 7-27 BY MOUTH ity of 00:00: DAILY. [facility] [place] [facility] JARDIANCE Yes [id number] 25mg TAKE 25 MG Univers 25 mg Tab 7-27 BY MOUTH ity of 00:00: DAILY. [facility] [place] [facility] JARDIANCE Yes [id number] 25mg TAKE 25 MG Univers 25 mg Tab 7-27 BY MOUTH ity of 00:00: DAILY. [facility] [place] [facility] JARDIANCE Yes [id number] 25mg TAKE 25 MG Univers 25 mg Tab 7-27 BY MOUTH ity of 00:00: DAILY. [facility] [place] [facility] JARDIANCE Yes [id number] 25mg TAKE 25 MG Univers 25 mg Tab 7-27 BY MOUTH ity of 00:00: DAILY. [facility] [place] [facility] JARDIANCE Yes [id number] 25mg TAKE 25 MG Univers 25 mg Tab 7-27 BY MOUTH ity of 00:00: DAILY. [facility] [place] [facility] JARDIANCE Yes [id number] 25mg TAKE 25 MG Univers 25 mg Tab 7-27 BY MOUTH ity of 00:00: DAILY. [facility] [place] [facility] JARDIANCE Yes [id number] 25mg TAKE 25 MG Univers 25 mg Tab 7-27 BY MOUTH ity of 00:00: DAILY. [facility] [place] [facility] JARDIANCE Yes [id number] 25mg TAKE 25 MG [facility] 25 mg Tab 7-27 BY MOUTH ity of 00:00: DAILY. [facility] [place] [facility] JARDIANCE Yes [id number] 25mg TAKE 25 MG Univers 25 mg Tab 7-27 BY MOUTH ity of 00:00: DAILY. [facility] [place] [facility] JARDIANCE 3- No [id number] 25mg TAKE 25 MG Univers 25 mg Tab 7-27 -14 BY MOUTH ity o f 00:00: 00:00 DAILY. [place] 00 :00 [facility] [place] [facility] JARDIANCE 3- No [id number] 25mg TAKE 25 MG Univers 25 mg Tab 7-27 -14 BY MOUTH ity o f 00:00: 00:00 DAILY. [place] 00 :00 [facility] Yes [id number] .5mg INJECT 0.5 Univers 0.25 mg or 7-26 MG UNDER ity o f 0.5 mg(2 00:00: THE SKIN [place] mg/1.5 mL) 00 WEEKLY. [facility] Yes [id number] .5mg INJECT 0.5 Univers 0.25 mg or 7-26 MG UNDER ity o f 0.5 mg(2 00:00: THE SKIN [place] mg/1.5 mL) 00 WEEKLY. [facility] Yes [id number] .5mg INJECT 0.5 Univers 0.25 mg or 7-26 MG UNDER ity o f 0.5 mg(2 00:00: THE SKIN [place] mg/1.5 mL) 00 [facility]LY. [facility] [id number] .5mg INJECT 0.5 Univers 0.25 mg or 7-26 MG UNDER ity o f 0.5 mg(2 00:00: THE SKIN [place] mg/1.5 mL) 00 WEEKLY. [facility] Yes [id number] .5mg INJECT 0.5 Univers 0.25 mg or 7-26 MG UNDER ity o f 0.5 mg(2 00:00: THE SKIN [place] mg/1.5 mL) 00 WEEKLY. [facility] Yes [id number] .5mg INJECT 0.5 Univers 0.25 mg or 7-26 MG UNDER ity o f 0.5 mg(2 00:00: THE SKIN [place] mg/1.5 mL) 00 WEEKLY. [facility] [id number] .5mg INJECT 0.5 Univers 0.25 mg or 7-26 MG UNDER ity o f 0.5 mg(2 00:00: THE SKIN [place] mg/1.5 mL) 00 WEEKLY. [facility] Yes [id number] .5mg INJECT 0.5 Univers 0.25 mg or 7-26 MG UNDER ity o f 0.5 mg(2 00:00: THE SKIN [place] mg/1.5 mL) 00 WEEKLY. [facility] Yes [id number] .5mg INJECT 0.5 Univers 0.25 mg or 7-26 MG UNDER ity o f 0.5 mg(2 00:00: THE SKIN [place] mg/1.5 mL) 00 WEEKLY. [facility] Yes [id number] .5mg INJECT 0.5 Univers 0.25 mg or 7-26 MG UNDER ity o f 0.5 mg(2 00:00: THE SKIN [place] mg/1.5 mL) 00 WEEKLY. [facility] Yes [id number] .5mg INJECT 0.5 Univers 0.25 mg or 7-26 MG UNDER ity o f 0.5 mg(2 00:00: THE SKIN [place] mg/1.5 mL) 00 WEEKLY. [facility] Yes [id number] .5mg INJECT 0.5 Univers 0.25 mg or 7-26 MG UNDER ity o f 0.5 mg(2 00:00: THE SKIN [place] mg/1.5 mL) 00 WEEKLY. [facility] Yes [id number] .5mg INJECT 0.5 Univers 0.25 mg or 7-26 MG UNDER ity o f 0.5 mg(2 00:00: THE SKIN [place] mg/1.5 mL) 00 WEEKLY. [facility] Yes [id number] .5mg INJECT 0.5 Univers 0.25 mg or 7-26 MG UNDER ity o f 0.5 mg(2 00:00: THE SKIN [place] mg/1.5 mL) 00 WEEKLY. [facility] Yes [id number] .5mg INJECT 0.5 Univers 0.25 mg or 7-26 MG UNDER ity o f 0.5 mg(2 00:00: THE SKIN [place] mg/1.5 mL) 00 WEEKLY. [facility] [id number] .5mg INJECT 0.5 Univers 0.25 mg or 7-26 MG UNDER ity o f 0.5 mg(2 00:00: THE SKIN [place] mg/1.5 mL) 00 WEEKLY. [facility]ica [facility] 3- No [id number] .5mg INJECT 0.5 Univers 0.25 mg or 7-26 02-09 MG UNDER ity of 0.5 mg(2 00:00: 00:00 [place] mg/1.5 mL) 00 :00 WEEKLY. [facility]ica [facility] No [id number] .5mg INJECT 0.5 Univers 0.25 mg or 7-26 02-09 MG UNDER ity of 0.5 mg(2 00:00: 00:00 [place] mg/1.5 mL) 00 :[facility] simvastatin Yes [id number] 20mg Take 1 Univers 20 mg 6-07 tablet by ity of tablet 00:00: mouth at [place] [address] bedtime. [facility] Branch simvastatin 0 Yes [id number] 20mg Take 1 [facility] 20 mg 6-07 tablet by ity of tablet 00:00: mouth at [place] [address] bedtime. [facility] [place] [facility] simvastatin 0 Yes [id number] 20mg Take 1 [facility] 20 mg 6-07 tablet by ity of tablet 00:00: mouth at [place] [address] bedtime. [facility] [place] [facility] simvastatin 0 Yes [id number] 20mg Take 1 [facility] 20 mg 6-07 tablet by ity of tablet 00:00: mouth at [place] [address] bedtime. [facility] [place] [facility] simvastatin 0 Yes [id number] 20mg Take 1 [facility] 20 mg 6-07 tablet by ity of tablet 00:00: mouth at [place] [address] bedtime. [facility] [place] [facility] simvastatin 0 Yes [id number] 20mg Take 1 [facility] 20 mg 6-07 tablet by ity of tablet 00:00: mouth at [place] [address] bedtime. [facility] [place] [facility] simvastatin 0 Yes [id number] 20mg Take 1 [facility] 20 mg 6-07 tablet by ity of tablet 00:00: mouth at [place] [address] bedtime. [facility] [place] [facility] simvastatin Yes [id number] 20mg Take 1 [facility] 20 mg 6-07 tablet by ity of tablet 00:00: mouth at [place] 00 bedtime. Medical Branch simvastatin Yes [id number] 20mg Take 1 [facility] 20 mg 6-07 tablet by ity of tablet 00:00: mouth at [place] 00 bedtime. [facility] simvastatin Yes [id number] 20mg Take 1 [facility] 20 mg 6-07 tablet by ity of tablet 00:00: mouth at [place] 00 bedtime. [facility] simvastatin Yes [id number] 20mg Take 1 [facility] 20 mg 6-07 tablet by ity of tablet 00:00: mouth at [place] 00 bedtime. [facility] simvastatin Yes [id number] 20mg Take 1 [facility] 20 mg 6-07 tablet by ity of tablet 00:00: mouth at [place] 00 bedtime. [facility] lisinopriL- Yes [id number] 1{tbl} Take 1 [facility] hydrochloro 6-07 tablet by ity of thiazide 00:00: mouth [place] 20-25 mg 00 daily. Medical per tablet Branch simvastatin Yes [id number] 20mg Take 1 [facility] 20 mg 6-07 tablet by ity of tablet 00:00: mouth at [place] 00 bedtime. [facility] lisinopriL- Yes [id number] 1{tbl} Take 1 [facility] hydrochloro 6-07 tablet by ity of thiazide 00:00: mouth [place] 20-25 mg 00 daily. Medical per tablet Branch simvastatin Yes [id number] 20mg Take 1 [facility] 20 mg 6-07 tablet by ity of tablet 00:00: mouth at [place] 00 bedtime. [facility] lisinopriL- Yes [id number] 1{tbl} Take 1 [facility] hydrochloro 6-07 tablet by ity of thiazide 00:00: mouth [place] 20-25 mg 00 daily. Medical per tablet Branch simvastatin Yes [id number] 20mg Take 1 [facility] 20 mg 6-07 tablet by ity of tablet 00:00: mouth at [place] 00 bedtime. [facility] lisinopriL- Yes [id number] 1{tbl} Take 1 [facility] hydrochloro 6-07 tablet by ity of thiazide 00:00: mouth [place] 20-25 mg 00 daily. Medical per tablet Branch simvastatin Yes [id number] 20mg Take 1 [facility] 20 mg 6-07 tablet by ity of tablet 00:00: mouth at [place] 00 bedtime. [facility] lisinopriL- Yes [id number] 1{tbl} Take 1 [facility] hydrochloro 6-07 tablet by ity of thiazide 00:00: mouth [place] 20-25 mg 00 daily. Medical per tablet Branch simvastatin Yes [id number] 20mg Take 1 [facility] 20 mg 6-07 tablet by ity of tablet 00:00: mouth at [place] 00 bedtime. [facility] lisinopriL- Yes [id number] 1{tbl} Take 1 [facility] hydrochloro 6-07 tablet by ity of thiazide 00:00: mouth [place] 20-25 mg 00 daily. Medical per tablet Branch simvastatin Yes [id number] 20mg Take 1 [facility] 20 mg 6-07 tablet by ity of tablet 00:00: mouth at [place] 00 bedtime. [facility] lisinopriL- Yes [id number] 1{tbl} Take 1 [facility] hydrochloro 6-07 tablet by ity of thiazide 00:00: mouth [place] 20-25 mg 00 daily. Medical per tablet Branch simvastatin Yes [id number] 20mg Take 1 [facility] 20 mg 6-07 tablet by ity of tablet 00:00: mouth at [place] 00 bedtime. [facility] lisinopriL- Yes [id number] 1{tbl} Take 1 [facility] hydrochloro 6-07 tablet by ity of thiazide 00:00: mouth [place] 20-25 mg 00 daily. Medical per tablet Branch simvastatin Yes [id number] 20mg Take 1 [facility] 20 mg 6-07 tablet by ity of tablet 00:00: mouth at [place] 00 bedtime. [facility] lisinopriL- Yes [id number] 1{tbl} Take 1 [facility] hydrochloro 6-07 tablet by ity of thiazide 00:00: mouth [place] 20-25 mg 00 daily. Medical per tablet Branch simvastatin Yes [id number] 20mg Take 1 [facility] 20 mg 6-07 tablet by ity of tablet 00:00: mouth at [place] 00 bedtime. [facility] lisinopriL- Yes [id number] 1{tbl} Take 1 [facility] hydrochloro 6-07 tablet by ity of thiazide 00:00: mouth [place] 20-25 mg 00 daily. Medical per tablet Branch simvastatin Yes [id number] 20mg Take 1 [facility] 20 mg 6-07 tablet by ity of tablet 00:00: mouth at [place] 00 bedtime. [facility] Branch lisinopriL- Yes [id number] 1{tbl} Take 1 [facility] hydrochloro 6-07 tablet by ity of thiazide 00:00: mouth [place] 20-25 mg 00 daily. Medical per tablet Branch simvastatin Yes [id number] 20mg Take 1 [facility] 20 mg 6-07 tablet by ity of tablet 00:00: mouth at [place] 00 bedtime. [facility] lisinopriL- Yes [id number] 1{tbl} Take 1 [facility] hydrochloro 6-07 tablet by ity of thiazide 00:00: mouth [place] 20-25 mg 00 daily. Medical per tablet Branch simvastatin Yes [id number] 20mg Take 1 [facility] 20 mg 6-07 tablet by ity of tablet 00:00: mouth at [place] 00 bedtime. [facility] lisinopriL- Yes [id number] 1{tbl} Take 1 [facility] hydrochloro 6-07 tablet by ity of thiazide 00:00: mouth [place] 20-25 mg 00 daily. Medical per tablet Branch simvastatin Yes [id number] 20mg Take 1 [facility] 20 mg 6-07 tablet by ity of tablet 00:00: mouth at [place] 00 bedtime. [facility] lisinopriL- Yes [id number] 1{tbl} Take 1 [facility] hydrochloro 6-07 tablet by ity of thiazide 00:00: mouth [place] 20-25 mg 00 daily. Medical per tablet Branch simvastatin Yes [id number] 20mg Take 1 [facility] 20 mg 6-07 tablet by ity of tablet 00:00: mouth at [place] 00 bedtime. [facility] lisinopriL- Yes [id number] 1{tbl} Take 1 [facility] hydrochloro 6-07 tablet by ity of thiazide 00:00: mouth [place] 20-25 mg 00 daily. Medical per tablet Branch simvastatin Yes [id number] 20mg Take 1 [facility] 20 mg 6-07 tablet by ity of tablet 00:00: mouth at [place] 00 bedtime. Medical Branch lisinopriL- 2020- Yes [id number] 1{tbl} Take 1 [facility] hydrochloro 6-07 tablet by ity of thiazide 00:00: mouth [place] 20-25 mg 00 daily. Medical per tablet Branch simvastatin Yes [id number] 20mg Take 1 [facility] 20 mg 6-07 tablet by ity of tablet 00:00: mouth at [place] 00 bedtime. [facility] simvastatin Yes [id number] 20mg Take 1 [facility] 20 mg 6-07 tablet by ity of tablet 00:00: mouth at [place] 00 bedtime. [facility] simvastatin Yes [id number] 20mg Take 1 [facility] 20 mg 6-07 tablet by ity of tablet 00:00: mouth at [place] [address] bedtime. Medical Branch simvastatin Yes [id number] 20mg Take 1 [facility] 20 mg 6-07 tablet by ity of tablet 00:00: mouth at [place] [address] bedtime. Medical Branch simvastatin Yes [id number] 20mg Take 1 [facility] 20 mg 6-07 tablet by ity of tablet 00:00: mouth at [place] [address] bedtime. Medical Branch simvastatin Yes [id number] 20mg Take 1 [facility] 20 mg 6-07 tablet by ity of tablet 00:00: mouth at [place] [address] bedtime. Medical Branch simvastatin Yes [id number] 20mg Take 1 [facility] 20 mg 6-07 tablet by ity of tablet 00:00: mouth at [place] [address] bedtime. Medical Branch simvastatin Yes [id number] 20mg Take 1 [facility] 20 mg 6-07 tablet by ity of tablet 00:00: mouth at [place] [address] bedtime. Medical Branch simvastatin Yes [id number] 20mg Take 1 [facility] 20 mg 6-07 tablet by ity of tablet 00:00: mouth at [place] 00 bedtime. [facility] simvastatin Yes [id number] 20mg Take 1 [facility] 20 mg 6-07 tablet by ity of tablet 00:00: mouth at [place] [address] bedtime. Medical Branch simvastatin Yes [id number] 20mg Take 1 [facility] 20 mg 6-07 tablet by ity of tablet 00:00: mouth at [place] 00 bedtime. [facility] simvastatin 0 Yes [id number] 20mg Take 1 [facility] 20 mg 6-07 tablet by ity of tablet 00:00: mouth at [place] [address] bedtime. [facility] simvastatin 0 Yes [id number] 20mg Take 1 [facility] 20 mg 6-07 tablet by ity of tablet 00:00: mouth at [place] [address] bedtime. [facility] simvastatin 0 Yes [id number] 20mg Take 1 [facility] 20 mg 6-07 tablet by ity of tablet 00:00: mouth at [place] [address] bedtime. [facility] simvastatin 0 Yes [id number] 20mg Take 1 [facility] 20 mg 6-07 tablet by ity of tablet 00:00: mouth at [place] [address] bedtime. [facility] simvastatin 0 Yes [id number] 20mg Take 1 [facility] 20 mg 6-07 tablet by ity of tablet 00:00: mouth at [place] [address] bedtime. [facility] [place] [facility] simvastatin 0 Yes [id number] 20mg Take 1 [facility] 20 mg 6-07 tablet by ity of tablet 00:00: mouth at [place] [address] bedtime. [facility] [place] [facility] simvastatin 0 Yes [id number] 20mg Take 1 [facility] 20 mg 6-07 tablet by ity of tablet 00:00: mouth at [place] [address] bedtime. [facility] [place] [facility] simvastatin 0 Yes [id number] 20mg Take 1 [facility] 20 mg 6-07 tablet by ity of tablet 00:00: mouth at [place] [address] bedtime. [facility] [place] [facility] simvastatin 0 Yes [id number] 20mg Take 1 [facility] 20 mg 6-07 tablet by ity of tablet 00:00: mouth at [place] [address] bedtime. [facility] [place] [facility] simvastatin 0 Yes [id number] 20mg Take 1 [facility] 20 mg 6-07 tablet by ity of tablet 00:00: mouth at [place] [address] bedtime. [facility] [place] [facility] simvastatin 0 Yes [id number] 20mg Take 1 [facility] 20 mg 6-07 tablet by ity of tablet 00:00: mouth at [place] [address] bedtime. [facility] [place] [facility] simvastatin 2020-0 Yes [id number] 20mg Take 1 [facility] 20 mg 6-07 tablet by ity of tablet 00:00: mouth at [place] [address] bedtime. [facility] [place] [facility] simvastatin 2020-0 Yes [id number] 20mg Take 1 [facility] 20 mg 6-07 tablet by ity of tablet 00:00: mouth at [place] 00 bedtime. [facility] simvastatin Yes [id number] 20mg Take 1 [facility] 20 mg 6-07 tablet by ity of tablet 00:00: mouth at [place] 00 bedtime. [facility] simvastatin Yes [id number] 20mg Take 1 [facility] 20 mg 6-07 tablet by ity of tablet 00:00: mouth at [place] 00 bedtime. [facility] simvastatin Yes [id number] 20mg Take 1 [facility] 20 mg 6-07 tablet by ity of tablet 00:00: mouth at [place] 00 bedtime. [facility] simvastatin Yes [id number] 20mg Take 1 [facility] 20 mg 6-07 tablet by ity of tablet 00:00: mouth at [place] 00 bedtime. [facility] simvastatin Yes [id number] 20mg Take 1 [facility] 20 mg 6-07 tablet by ity of tablet 00:00: mouth at [place] 00 bedtime. [facility] simvastatin Yes [id number] 20mg Take 1 [facility] 20 mg 6-07 tablet by ity of tablet 00:00: mouth at [place] 00 bedtime. [facility] simvastatin Yes [id number] 20mg Take 1 [facility] 20 mg 6-07 tablet by ity of tablet 00:00: mouth at [place] 00 bedtime. [facility] simvastatin Yes [id number] 20mg Take 1 [facility] 20 mg 6-07 tablet by ity of tablet 00:00: mouth at [place] 00 bedtime. Medical Branch lisinopriL- 2022- No [id number] 1{tbl} Take 1 [facility] hydrochloro 6-07 02-09 tablet by it y of thiazide 00:00: 00:00 mouth [place] 20-25 mg 00 :00 daily. Medical per tablet Branch lisinopriL- 2022- No [id number] 1{tbl} Take 1 [facility] hydrochloro 6-07 02-09 tablet by it y of thiazide 00:00: 00:00 mouth [place] 20-25 mg 00 :00 daily. Medical per tablet Branch pioglitazon Yes [id number] 1{tbl} Take 1 [facility] e-metformin 6-01 tablet by ity of 15-850 mg 00:00: mouth 2 [place] per tablet 00 (two) Medical times Branch daily with meals. pioglitazon Yes [id number] 1{tbl} Take 1 [facility] e-metformin 6-01 tablet by ity of 15-850 mg 00:00: mouth 2 [place] per tablet 00 (two) Medical times Branch daily with meals. pioglitazon Yes [id number] 1{tbl} Take 1 [facility] e-metformin 6-01 tablet by ity of 15-850 mg 00:00: mouth 2 [place] per tablet 00 (two) Medical times Branch daily with meals. pioglitazon Yes [id number] 1{tbl} Take 1 [facility] e-metformin 6-01 tablet by ity of 15-850 mg 00:00: mouth 2 [place] per tablet 00 (two) Medical times Branch daily with meals. pioglitazon Yes [id number] 1{tbl} Take 1 [facility] e-metformin 6-01 tablet by ity of 15-850 mg 00:00: mouth 2 [place] per tablet 00 (two) Medical times Branch daily with meals. pioglitazon Yes [id number] 1{tbl} Take 1 [facility] e-metformin 6-01 tablet by ity of 15-850 mg 00:00: mouth 2 [place] per tablet 00 (two) Medical times Branch daily with meals. pioglitazon Yes [id number] 1{tbl} Take 1 [facility] e-metformin 6-01 tablet by ity of 15-850 mg 00:00: mouth 2 [place] per tablet 00 (two) Medical times Branch daily with meals. pioglitazon Yes [id number] 1{tbl} Take 1 [facility] e-metformin 6-01 tablet by ity of 15-850 mg 00:00: mouth 2 [place] per tablet 00 (two) Medical times Branch daily with meals. pioglitazon Yes [id number] 1{tbl} Take 1 [facility] e-metformin 6-01 tablet by ity of 15-850 mg 00:00: mouth 2 [place] per tablet 00 (two) Medical times Branch daily with meals. pioglitazon Yes [id number] 1{tbl} Take 1 [facility] e-metformin 6-01 tablet by ity of 15-850 mg 00:00: mouth 2 [place] per tablet 00 (two) Medical times Branch daily with meals. pioglitazon Yes [id number] 1{tbl} Take 1 [facility] e-metformin 6-01 tablet by ity of 15-850 mg 00:00: mouth 2 [place] per tablet 00 (two) Medical times Branch daily with meals. pioglitazon Yes [id number] 1{tbl} Take 1 [facility] e-metformin 6-01 tablet by ity of 15-850 mg 00:00: mouth 2 [place] per tablet 00 (two) Medical times Branch daily with meals. pioglitazon Yes [id number] 1{tbl} Take 1 [facility] e-metformin 6-01 tablet by ity of 15-850 mg 00:00: mouth 2 [place] per tablet 00 (two) Medical times Branch daily with meals. pioglitazon Yes [id number] 1{tbl} Take 1 [facility] e-metformin 6-01 tablet by ity of 15-850 mg 00:00: mouth 2 [place] per tablet 00 (two) Medical times Branch daily with meals. pioglitazon Yes [id number] 1{tbl} Take 1 [facility] e-metformin 6-01 tablet by ity of 15-850 mg 00:00: mouth 2 [place] per tablet 00 (two) Medical times Branch daily with meals. pioglitazon Yes [id number] 1{tbl} Take 1 [facility] e-metformin 6-01 tablet by ity of 15-850 mg 00:00: mouth 2 [place] per tablet 00 (two) Medical times Branch daily with meals. pioglitazon 2022- No [id number] 1{tbl} Take 1 [facility] e-metformin 6-01 02-09 tablet by it y of 15-850 mg 00:00: 00:00 mouth [place] per tablet 00 :00 (two) Medical times Branch daily with meals. pioglitazon 2022- No [id number] 1{tbl} Take 1 [facility] e-metformin 6-01 02-09 tablet by it y of 15-850 mg 00:00: 00:00 mouth [place] per tablet 00 :00 (two) Medical times Branch daily with meals. No known No No known Metho di medications 4- medication [facility] l mupirocin 2 mupirocin 2 No mupirocin Levine % topical % topical 2 % [facility] ointment ointment topical Urol ogy APPLY TO APPLY TO ointment AFFECTED AFFECTED APPLY TO AREA 3 AREA 3 AFFECTED TIMES A DAY TIMES A DAY AREA 3 FOR 7 DAYS FOR 7 DAYS TIMES A DAY FOR 7 DAYS pregabalin pregabalin No pregabalin Anne 75 mg 75 mg 75 mg [facility] capsule capsule capsule dic TAKE 1 TAKE 1 TAKE 1 Sports CAPSULE BY CAPSULE BY CAPSULE BY Medicin MOUTH TWICE MOUTH TWICE MOUTH e A DAY A DAY TWICE A DAY sildenafil sildenafil No sildenafil Levine 100 mg 100 mg 100 mg [facility] tablet TAKE tablet TAKE tablet Urology ONE (1) ONE (1) TAKE ONE TABLET(S) TABLET(S) (1) BY MOUTH ON BY MOUTH ON TABLET(S) AN EMPTY AN EMPTY BY MOUTH STOMACH AT STOMACH AT ON AN LEAST 30 LEAST 30 EMPTY MINUTES MINUTES STOMACH AT BEFORE SEX. BEFORE SEX. LEAST 30 MINUTES BEFORE SEX. tramadol 50 tramadol 50 No tramadol Anne mg tablet mg tablet 50 mg Orth [facility] TAKE 1 TAKE 1 tablet dic TABLET BY TABLET BY TAKE 1 Spo rts MOUTH EVERY MOUTH EVERY TABLET BY Medicin 6 HOURS 6 HOURS MOUTH e NEEDED NEEDED EVERY 6 HOURS NEEDED Humulin N Humulin N No Humulin N [place] NPH U-100 NPH U-100 NPH U-100 [facility] Insulin Insulin Insulin Urolog y KwikPen 100 KwikPen 100 KwikPen unit/mL (3 unit/mL (3 100 mL) mL) unit/mL (3 subcutaneou subcutaneou mL) s PLEASE s PLEASE subcutaneo SEE SEE us PLEASE ATTACHED ATTACHED SEE FOR FOR ATTACHED DETAILED DETAILED FOR DIRECTIONS DIRECTIONS DETAILED DIRECTIONS ibuprofen ibuprofen No ibuprofen Levine 800 mg 800 mg 800 mg [facility] tablet TAKE tablet TAKE tablet Urology 1 TABLET BY 1 TABLET BY TAKE 1 MOUTH EVERY MOUTH EVERY TABLET BY 8 (EIGHT) 8 (EIGHT) MOUTH HOURS HOURS EVERY 8 NEEDED FOR NEEDED FOR (EIGHT) PAIN (SCALE PAIN (SCALE HOURS 4-6) (WITH 4-6) (WITH NEEDED FOR MEALS). MEALS). PAIN (SCALE 4-6) (WITH MEALS). mupirocin 2 mupirocin 2 No mupirocin Levine % topical % topical 2 % [facility] ointment ointment topical Urol ogy APPLY TO APPLY TO ointment AFFECTED AFFECTED APPLY TO AREA 3 AREA 3 AFFECTED TIMES A DAY TIMES A DAY AREA 3 FOR 7 DAYS FOR 7 DAYS TIMES A DAY FOR 7 DAYS sildenafil sildenafil No sildenafil Levine 100 mg 100 mg 100 mg [facility] tablet TAKE tablet TAKE tablet Urology ONE (1) ONE (1) TAKE ONE TABLET(S) TABLET(S) (1) BY MOUTH ON BY MOUTH ON TABLET(S) AN EMPTY AN EMPTY BY MOUTH STOMACH AT STOMACH AT ON AN LEAST 30 LEAST 30 EMPTY MINUTES MINUTES STOMACH AT BEFORE SEX. BEFORE SEX. LEAST 30 MINUTES BEFORE SEX. Tri-Mix Tri-Mix No Tri-Mix [place] (papaver-ph (papaver-ph (papaver-p [facility] entol-PGE1) entol-PGE1) hentol-PGE [facility] 150 mg-5 150 mg-5 1) 150 mg-50 mcg mg-50 mcg mg-5 mg-50 intracavern intracavern mcg osal soln osal soln intracaver Inject 0.5 Inject 0.5 nosal soln cc into cc into Inject 0.5 penis as penis as cc into directed directed penis as for for directed erection. erection. for January erection. increase by increase by January 0.1 cc 0.1 cc increase increments increments by 0.1 cc per per increments injection injection per until until injection desired desired until effect. Do effect. Do desired not use not use effect. Do more than more than not use once in 24 once in 24 more than hours hours once in 24 hours Actoplus Actoplus No Actoplus Aza shruti MET MET MET [facility] Medicin e Ozempic 1 Ozempic 1 No Ozempic 1 Anne mg/dose (4 mg/dose (4 mg/dose (4 [facility] mg/3 mL) mg/3 mL) mg/3 mL) dic subcutaneou subcutaneou subcutaneo Sports s pen s pen us pen Medicin injector injector injector e INJECT 1 MG INJECT 1 MG INJECT 1 UNDER THE UNDER THE MG UNDER SKIN SKIN THE SKIN WEEKLY. WEEKLY. WEEKLY. pregabalin pregabalin No pregabalin Anne 75 mg 75 mg 75 mg [facility] capsule capsule capsule dic TAKE 1 TAKE 1 TAKE 1 Sports CAPSULE BY CAPSULE BY CAPSULE BY Medicin MOUTH TWICE MOUTH TWICE MOUTH e A DAY A DAY TWICE A DAY Actoplus Actoplus No Actoplus Aza shruti MET MET MET [facility] Medicin e gabapentin gabapentin No 1capsul TID gabapentin Anne 300 mg 300 mg e(s) 300 mg [facility] capsule capsule capsule dic Take 1 Take 1 Take 1 Sports capsule 3 capsule 3 capsule 3 Medicin times a day times a day times a e by oral by oral day by route for route for oral route 30 days. 30 days. for 30 days. Ozempic 1 Ozempic 1 No Ozempic 1 Anne mg/dose (4 mg/dose (4 mg/dose (4 [facility] mg/3 mL) mg/3 mL) mg/3 mL) dic subcutaneou subcutaneou subcutaneo Sports s pen s pen us pen Medicin injector injector injector e INJECT 1 MG INJECT 1 MG INJECT 1 UNDER THE UNDER THE MG UNDER SKIN SKIN THE SKIN WEEKLY. WEEKLY. WEEKLY. pregabalin pregabalin No pregabalin Anne 75 mg 75 mg 75 mg [facility] capsule capsule capsule dic TAKE 1 TAKE 1 TAKE 1 Sports CAPSULE BY CAPSULE BY CAPSULE BY Medicin MOUTH TWICE MOUTH TWICE MOUTH e A DAY A DAY TWICE A DAY tramadol 50 tramadol 50 No 1 Q6H tramadol Anne mg tablet mg tablet 50 mg Orth ope Take 1 Take 1 tablet dic tablet tablet Take 1 Sports every 6 every 6 tablet Medicin hours by hours by every 6 e oral route oral route hours by as needed. as needed. oral route as needed. sildenafil sildenafil No sildenafil Levine 100 mg 100 mg 100 mg [facility] tablet Take tablet Take tablet Urology 1 tablet by 1 tablet by Take 1 mouth on mouth on tablet by empty empty mouth on stomach at stomach at empty least 30 least 30 stomach at minutes minutes least 30 before sex. before sex. minutes before sex. Actoplus Actoplus No Actoplus Aza shruti MET MET MET [facility] Medicin e Humulin N Humulin N No Humulin N Levine NPH U-100 NPH U-100 NPH U-100 [facility] Insulin Insulin Insulin Urolog y KwikPen 100 KwikPen 100 KwikPen unit/mL (3 unit/mL (3 100 mL) mL) unit/mL (3 subcutaneou subcutaneou mL) s PLEASE s PLEASE subcutaneo SEE SEE us PLEASE ATTACHED ATTACHED SEE FOR FOR ATTACHED DETAILED DETAILED FOR DIRECTIONS DIRECTIONS DETAILED DIRECTIONS gabapentin gabapentin No gabapentin Anne 300 mg 300 mg 300 mg [facility] capsule capsule capsule dic TAKE 1 TAKE 1 TAKE 1 Sports CAPSULE BY CAPSULE BY CAPSULE BY Medicin MOUTH THREE MOUTH THREE MOUTH e TIMES A DAY TIMES A DAY THREE TIMES A DAY ibuprofen ibuprofen No ibuprofen Levine 800 mg 800 mg 800 mg [facility] tablet TAKE tablet TAKE tablet Urology 1 TABLET BY 1 TABLET BY TAKE 1 MOUTH EVERY MOUTH EVERY TABLET BY 8 (EIGHT) 8 (EIGHT) MOUTH HOURS HOURS EVERY 8 NEEDED FOR NEEDED FOR (EIGHT) PAIN (SCALE PAIN (SCALE HOURS 4-6) (WITH 4-6) (WITH NEEDED FOR MEALS). MEALS). PAIN (SCALE 4-6) (WITH MEALS). Ozempic 1 Ozempic 1 No Ozempic 1 Anne mg/dose (4 mg/dose (4 mg/dose (4 [facility] mg/3 mL) mg/3 mL) mg/3 mL) dic subcutaneou subcutaneou subcutaneo Sports s pen s pen us pen Medicin injector injector injector e INJECT 1 MG INJECT 1 MG INJECT 1 UNDER THE UNDER THE MG UNDER SKIN SKIN THE SKIN WEEKLY. WEEKLY. WEEKLY. Immunizations Ordered Filled Date Status Comments Source Immunization Name Immunization Name Influenza Virus 2022-07-30 Completed [facility] Vaccine 00:00:00 [facility] Influenza Virus 2022-07-30 Completed [facility] of Vaccine 00:00:00 [facility] Influenza Virus 2022-07-30 Completed [facility] of Vaccine 00:00:00 [facility] Influenza Virus 2022-07-30 Completed [facility] of Vaccine 00:00:00 [facility] Influenza Virus 2022-07-30 Completed [facility] of Vaccine 00:00:00 [facility] Influenza Virus 2022-07-30 Completed [facility] of Vaccine 00:00:00 [facility] Influenza Virus 2022-07-30 Completed [facility] of Vaccine 00:00:00 [facility] Influenza Virus 2022-07-30 Completed [facility] of Vaccine 00:00:00 [facility] Influenza Virus 2022-07-30 Completed [facility] of Vaccine 00:00:00 [facility] Influenza Virus 2022-07-30 Completed [facility] of Vaccine 00:00:00 [facility] Influenza Virus 2022-07-30 Completed [facility] y of Vaccine 00:00:00 [facility] Influenza Virus 2022-07-30 Completed [facility] of Vaccine 00:00:00 [facility] Influenza Virus 2022-07-30 Completed Univers[facility] y of Vaccine 00:00:00 [place] [facility] Influenza Virus 2022-07-30 Completed [facility] y of Vaccine 00:00:00 [facility] Influenza Virus 2022-07-30 Completed [facility] y of Vaccine 00:00:00 [facility] Influenza Virus 2022-07-30 Completed [facility] y of Vaccine 00:00:00 [facility] Influenza Virus 2022-07-30 Completed [facility] y of Vaccine 00:00:00 [facility] Influenza Virus 2022-07-30 Completed [facility] y of Vaccine 00:00:00 [facility] Influenza Virus 2022-07-30 Completed [facility]it y of Vaccine 00:00:00 [facility] Influenza Virus 2022-07-30 Completed [facility] y of Vaccine 00:00:00 [facility] Influenza Virus 2022-07-30 Completed [facility] y of Vaccine 00:00:00 [facility] Influenza Virus 2022-07-30 Completed [facility] y of Vaccine 00:00:00 [facility] Influenza Virus 2022-07-30 Completed [facility] y of Vaccine 00:00:00 [facility] Influenza Virus 2022-07-30 Completed [facility] y of Vaccine 00:00:00 [facility] Influenza Virus 2022-07-30 Completed [facility] y of Vaccine 00:00:00 [facility] Influenza Virus 2022-07-30 Completed [facility] y of Vaccine 00:00:00 [facility] Influenza Virus 2022-07-30 Completed [facility] y of Vaccine 00:00:00 [facility] Influenza Virus 2022-07-30 Completed [facility] of Vaccine 00:00:00 [facility] Influenza Virus 2022-07-30 Completed [facility] y of Vaccine 00:00:00 [facility] Influenza Virus 2022-07-30 Completed [facility] y of Vaccine 00:00:00 [place] [facility] Influenza Virus 2022-07-30 Completed [facility] y of Vaccine 00:00:00 [facility] Influenza Virus 2022-07-30 Completed [facility] y of Vaccine 00:00:00 [facility] Influenza Virus 2022-07-30 Completed [facility] y of Vaccine 00:00:00 [place] [facility] Influenza Virus 2022-07-30 Completed [facility] y of Vaccine 00:00:00 [facility] Influenza Virus 2022-07-30 Completed [facility] y of Vaccine 00:00:00 [facility] Influenza Virus 2022-07-30 Completed [facility] y of Vaccine 00:00:00 [facility] Influenza Virus 2022-07-30 Completed [facility] y of Vaccine 00:00:00 [facility] Influenza Virus 2022-07-30 Completed [facility] y of Vaccine 00:00:00 [facility] Influenza Virus 2022-07-30 Completed [facility] y of Vaccine 00:00:00 [facility] Influenza Virus 2022-07-30 Completed [facility] y of Vaccine 00:00:00 [facility] Influenza Virus 2022-07-30 Completed [facility] Vaccine 00:00:00 [facility] Influenza Virus 2022-07-30 Completed [facility] Vaccine 00[facility]00:00 [facility] Influenza Virus 2022-07-30 Completed [facility] Vaccine 00:00:00 [facility] Influenza Virus 2022-07-30 Completed [facility] Vaccine 00:00:00 [facility] Influenza Virus 2022-07-30 Completed [facility] Vaccine 00:00:00 [facility] SARS-COV-2 COVID-19 2021-09-30 Completed [facility] of PFIZER VACCINE 00:00:00 [facility] SARS-COV-2 COVID-19 2021-09-30 Completed [facility] of PFIZER VACCINE 00:00:00 [facility] SARS-COV-2 COVID-19 2021-09-30 Completed [facility] of PFIZER VACCINE 00:00:00 [facility] SARS-COV-2 COVID-19 2021-09-30 Completed [facility] of PFIZER VACCINE 00:00:00 [facility] SARS-COV-2 COVID-19 2021-09-30 Completed [facility] of PFIZER VACCINE 00:00:00 [facility] SARS-COV-2 COVID-19 2021-09-30 Completed [facility] of PFIZER VACCINE 00:00:00 [facility] SARS-COV-2 COVID-19 2021-09-30 Completed [facility] of PFIZER VACCINE 00:00:00 [facility] SARS-COV-2 COVID-19 2021-09-30 Completed [facility] of PFIZER VACCINE 00:00:00 [facility] SARS-COV-2 COVID-19 2021-09-30 Completed [facility] of PFIZER VACCINE 00:00:00 [facility] SARS-COV-2 COVID-19 2021-09-30 Completed [facility] of PFIZER VACCINE 00:00:00 [facility] SARS-COV-2 COVID-19 2021-09-30 Completed [facility] of PFIZER VACCINE 00:00:00 [facility] SARS-COV-2 COVID-19 2021-09-30 Completed [facility] of PFIZER VACCINE 00:00:00 [facility] SARS-COV-2 COVID-19 2021-09-30 Completed [facility] of PFIZER VACCINE 00:00:00 [facility] SARS-COV-2 COVID-19 2021-09-30 Completed [facility] of PFIZER VACCINE 00:00:00 [facility] SARS-COV-2 COVID-19 2021-09-30 Completed [facility] of PFIZER VACCINE 00:00:00 [facility] SARS-COV-2 COVID-19 2021-09-30 Completed [facility] of PFIZER VACCINE 00:00:00 [facility] SARS-COV-2 COVID-19 2021-09-30 Completed [facility] of PFIZER VACCINE 00:00:00 [facility] SARS-COV-2 COVID-19 2021-09-30 Completed [facility] of PFIZER VACCINE 00:00:00 [facility] SARS-COV-2 COVID-19 2021-09-30 Completed [facility] of PFIZER VACCINE 00:00:00 [facility] SARS-COV-2 COVID-19 2021-09-30 Completed [facility] of PFIZER VACCINE 00:00:00 [facility] SARS-COV-2 COVID-19 2021-09-30 Completed [facility] of PFIZER VACCINE 00:00:00 [facility] SARS-COV-2 COVID-19 2021-09-30 Completed [facility] of PFIZER VACCINE 00:00:00 [facility] SARS-COV-2 COVID-19 2021-09-30 Completed [facility] of PFIZER VACCINE 00:00:00 [facility] SARS-COV-2 COVID-19 2021-09-30 Completed [facility] of PFIZER VACCINE 00:00:00 [facility] SARS-COV-2 COVID-19 2021-09-30 Completed [facility] of PFIZER VACCINE 00:00:00 [facility] SARS-COV-2 COVID-19 2021-09-30 Completed [facility] of PFIZER VACCINE 00:00:00 [facility] SARS-COV-2 COVID-19 2021-09-30 Completed [facility] of PFIZER VACCINE 00:00:00 [facility] SARS-COV-2 COVID-19 2021-09-30 Completed [facility] of PFIZER VACCINE 00:00:00 [facility] SARS-COV-2 COVID-19 2021-09-30 Completed [facility] of PFIZER VACCINE 00:00:00 [facility] SARS-COV-2 COVID-19 2021-09-30 Completed [facility] of PFIZER VACCINE 00:00:00 [facility] SARS-COV-2 COVID-19 2021-09-30 Completed [facility] of PFIZER VACCINE 00:00:00 [facility] SARS-COV-2 COVID-19 2020-12-28 Completed [facility] of PFIZER VACCINE 00:00:00 [facility] SARS-COV-2 COVID-19 2020-12-28 Completed [facility] of PFIZER VACCINE 00:00:00 [facility] SARS-COV-2 COVID-19 2020-12-28 Completed [facility] of PFIZER VACCINE 00:00:00 [facility] SARS-COV-2 COVID-19 2020-12-28 Completed [facility] of PFIZER VACCINE 00:00:00 [facility] SARS-COV-2 COVID-19 2020-12-28 Completed [facility] of PFIZER VACCINE 00:00:00 [facility] SARS-COV-2 COVID-19 2020-12-28 Completed [facility] of PFIZER VACCINE 00:00:00 [facility] SARS-COV-2 COVID-19 2020-12-28 Completed [facility] of PFIZER VACCINE 00:00:00 [facility] SARS-COV-2 COVID-19 2020-12-28 Completed [facility] of PFIZER VACCINE 00:00:00 [facility] SARS-COV-2 COVID-19 2020-12-28 Completed [facility] PFIZER VACCINE 00:00:[address] [facility] SARS-COV-2 COVID-19 2020-12-28 Completed [facility] of PFIZER VACCINE 00:00:00 [facility] SARS-COV-2 COVID-19 2020-12-28 Completed [facility] of PFIZER VACCINE 00:00:00 [facility] SARS-COV-2 COVID-19 2020-12-28 Completed [facility] of PFIZER VACCINE 00:00:00 [facility] SARS-COV-2 COVID-19 2020-12-28 Completed [facility] of PFIZER VACCINE 00:00:00 [facility] SARS-COV-2 COVID-19 2020-12-28 Completed [facility] of PFIZER VACCINE 00:00:00 [facility] SARS-COV-2 COVID-19 2020-12-28 Completed [facility] of PFIZER VACCINE 00:00:00 [facility] SARS-COV-2 COVID-19 2020-12-28 Completed [facility] of PFIZER VACCINE 00:00:00 [facility] SARS-COV-2 COVID-19 2020-12-28 Completed [facility] of PFIZER VACCINE 00:00:00 [facility] SARS-COV-2 COVID-19 2020-12-28 Completed [facility] of PFIZER VACCINE 00:00:00 [facility] SARS-COV-2 COVID-19 2020-12-28 Completed [facility] of PFIZER VACCINE 00:00:00 [facility] SARS-COV-2 COVID-19 2020-12-28 Completed [facility] of PFIZER VACCINE 00:00:00 [facility] SARS-COV-2 COVID-19 2020-12-28 Completed [facility] of PFIZER VACCINE 00:00:00 [facility] SARS-COV-2 COVID-19 2020-12-28 Completed [facility] of PFIZER VACCINE 00:00:00 [facility] SARS-COV-2 COVID-19 2020-12-28 Completed [facility] of PFIZER VACCINE 00:00:00 [facility] SARS-COV-2 COVID-19 2020-12-28 Completed [facility] of PFIZER VACCINE 00:00:00 [facility] SARS-COV-2 COVID-19 2020-12-28 Completed [facility] of PFIZER VACCINE 00:00:00 [facility] SARS-COV-2 COVID-19 2020-12-28 Completed [facility] of PFIZER VACCINE 00:00:00 [facility] SARS-COV-2 COVID-19 2020-12-28 Completed [facility] of PFIZER VACCINE 00:00:00 [facility] SARS-COV-2 COVID-19 2020-12-28 Completed [facility] of PFIZER VACCINE 00:00:00 [facility] SARS-COV-2 COVID-19 2020-12-28 Completed [facility] of PFIZER VACCINE 00:00:00 [facility] SARS-COV-2 COVID-19 2020-12-28 Completed [facility] of PFIZER VACCINE 00:00:00 [facility] SARS-COV-2 COVID-19 2020-12-28 Completed [facility] of PFIZER VACCINE 00:00:00 [facility] PFIZER COVID-19 2020-12-28 Completed [facility]:00:00 [facility] SARS-COV-2 COVID-19 2020-12-07 Completed [facility] of PFIZER VACCINE 00:00:00 [facility] SARS-COV-2 COVID-19 2020-12-07 Completed [facility] of PFIZER VACCINE 00:00:00 [facility] SARS-COV-2 COVID-19 2020-12-07 Completed [facility] of PFIZER VACCINE 00:00:00 [facility] SARS-COV-2 COVID-19 2020-12-07 Completed [facility] of PFIZER VACCINE 00:00:00 [facility] SARS-COV-2 COVID-19 2020-12-07 Completed [facility] of PFIZER VACCINE 00:00:00 [facility] SARS-COV-2 COVID-19 2020-12-07 Completed [facility] of PFIZER VACCINE 00:00:00 [facility] SARS-COV-2 COVID-19 2020-12-07 Completed [facility] of PFIZER VACCINE 00:00:00 [facility] SARS-COV-2 COVID-19 2020-12-07 Completed [facility] of PFIZER VACCINE 00:00:00 [facility] SARS-COV-2 COVID-19 2020-12-07 Completed [facility] of PFIZER VACCINE 00:00:00 [facility] SARS-COV-2 COVID-19 2020-12-07 Completed [facility] of PFIZER VACCINE 00:00:00 [facility] SARS-COV-2 COVID-19 2020-12-07 Completed [facility] of PFIZER VACCINE 00:00:00 [facility] SARS-COV-2 COVID-19 2020-12-07 Completed [facility] of PFIZER VACCINE 00:00:00 [facility] SARS-COV-2 COVID-19 2020-12-07 Completed [facility] of PFIZER VACCINE 00:00:00 [facility] SARS-COV-2 COVID-19 2020-12-07 Completed [facility] of PFIZER VACCINE 00:00:00 [facility] SARS-COV-2 COVID-19 2020-12-07 Completed [facility] of PFIZER VACCINE 00:00:00 [facility] SARS-COV-2 COVID-19 2020-12-07 Completed [facility] of PFIZER VACCINE 00:00:00 [facility] SARS-COV-2 COVID-19 2020-12-07 Completed [facility] of PFIZER VACCINE 00:00:00 [facility] SARS-COV-2 COVID-19 2020-12-07 Completed [facility] of PFIZER VACCINE 00:00:00 [facility] SARS-COV-2 COVID-19 2020-12-07 Completed [facility] of PFIZER VACCINE 00:00:00 [facility] SARS-COV-2 COVID-19 2020-12-07 Completed [facility] of PFIZER VACCINE 00:00:00 [facility] SARS-COV-2 COVID-19 2020-12-07 Completed [facility] of PFIZER VACCINE 00:00:00 [facility] SARS-COV-2 COVID-19 2020-12-07 Completed [facility] of PFIZER VACCINE 00:00:00 [facility] SARS-COV-2 COVID-19 2020-12-07 Completed [facility] of PFIZER VACCINE 00:00:00 [facility] SARS-COV-2 COVID-19 2020-12-07 Completed [facility] of PFIZER VACCINE 00:00:00 [facility] SARS-COV-2 COVID-19 2020-12-07 Completed [facility] of PFIZER VACCINE 00:00:00 [facility] SARS-COV-2 COVID-19 2020-12-07 Completed [facility] of PFIZER VACCINE 00:00:00 [facility] SARS-COV-2 COVID-19 2020-12-07 Completed [facility] of PFIZER VACCINE 00:00:00 [facility] SARS-COV-2 COVID-19 2020-12-07 Completed [facility] of PFIZER VACCINE 00:00:00 [facility] SARS-COV-2 COVID-19 2020-12-07 Completed [facility] of PFIZER VACCINE 00:00:00 [facility] SARS-COV-2 COVID-19 2020-12-07 Completed [facility] of PFIZER VACCINE 00:00:00 [facility] SARS-COV-2 COVID-19 2020-12-07 Completed [facility] of PFIZER VACCINE 00:00:00 [facility] PFIZER COVID-19 2020-12-07 Completed [facility]00 [facility] Influenza Virus Unknown Completed [facility] Vaccine [facility] SARS-COV-2 COVID-19 Unknown Completed [facility] of PFIZER VACCINE [facility] SARS-COV-2 COVID-19 Unknown Completed [facility] of PFIZER VACCINE [facility] SARS-COV-2 COVID-19 Unknown Completed [facility] of PFIZER VACCINE [facility] Influenza Virus Unknown Completed [facility] Vaccine [facility] SARS-COV-2 COVID-19 Unknown Completed [facility] of PFIZER VACCINE [facility] SARS-COV-2 COVID-19 Unknown Completed [facility] of PFIZER VACCINE [facility] SARS-COV-2 COVID-19 Unknown Completed [facility] of PFIZER VACCINE [facility] Influenza Virus Unknown Completed [facility] Vacc[facility] SARS-COV-2 COVID-19 Unknown Completed [facility] of PFIZER VACCINE [facility] SARS-COV-2 COVID-19 Unknown Completed [facility]INE [facility] SARS-COV-2 COVID-19 Unknown Completed [facility]ive [facility] of PFIZER VACCINE [facility] faisal [facility] Influenza Virus Unknown Completed [facility] Vaccine [facility] SARS-COV-2 COVID-19 Unknown Completed [facility]ive [facility] of PFIZER VACCINE [facility] SARS-COV-2 COVID-19 Unknown Completed [facility] of PFIZER VACCINE [facility] SARS-COV-2 COVID-19 Unknown Completed [facility]ive [facility] of PFIZER VACCINE [facility] fa[facility]al Branch Influenza Virus Unknown Completed [facility] Vaccine [facility] SARS-COV-2 COVID-19 Unknown Completed Unive rsity of PFIZER VACCINE [facility] SARS-COV-2 COVID-19 Unknown Completed [facility]ive [facility] of PFIZER VACCINE [facility] SARS-COV-2 COVID-19 Unknown Completed [facility]ive [facility] of PFIZER VACCINE [facility] SARS-COV-2 COVID-19 Unknown Completed [facility] of PFIZER VACCINE [facility] SARS-COV-2 COVID-19 Unknown Completed [facility]ive [facility] of PFIZER VACCINE [facility] Influenza Virus Unknown Completed [facility] Vaccine [facility] SARS-COV-2 COVID-19 Unknown Completed [facility]ive [facility] of PFIZER VACCINE [facility] SARS-COV-2 COVID-19 Unknown Completed [facility] of PFIZER VACCINE [facility] SARS-COV-2 COVID-19 Unknown Completed [facility]ive [facility] of PFIZER VACCINE [facility] Vital Signs Vital Name Observation Time Observation Value Comments Source BMI (Body Mass 2023-08-01 32.6 kg/m2 [facility] Index) 00:00:00 Urology BP Diastolic 2023-08-01 92 mm[Hg] [facility] 00:00:00 Urology Height 2023-08-01 67 [in_i] [facility] 00:00:00 Urology BP Systolic 2023-08-01 134 mm[Hg] [facility] 00:00:00 Urology Body Weight 2023-08-01 208 [lb_av] [facility] 00:00:00 Urology Systolic blood 2023-06-11 164 mm[Hg] University of pressure 19:42:00 [facility] Diastolic blood 2023-06-11 78 mm[Hg] University o f pressure 19:42:00 [facility] Heart rate 2023-06-11 83 /min University 19:34:00 [facility] Body height 2023-06-11 170.2 cm University of 19:34:00 [facility] Body weight 2023-06-11 94.802 kg University of 19:34:00 [facility] BMI 2023-06-11 32.73 kg/m2 University of 19:34:00 [facility] Oxygen saturation 2023-06-11 98 /min [facility] of in Arterial blood 19:34:00 [place] [facility] P[facility] Systolic blood 2023-06-09 145 mm[Hg] [facility] of pressure 15:55:00 [facility] Diastolic blood 2023-06-09 84 mm[Hg] University o f pressure 15:55:00 [facility] Heart rate 2023-06-09 77 /min University of 15:48:00 [facility] Body temperature 2023-06-09 36.28 Y[facility] University of 15:48:00 [facility] Body height 2023-06-09 170.2 cm University of 15:48:00 [facility] Body weight 2023-06-09 95.119 kg University of 15:48:00 [facility] BMI 2023-06-09 32.84 kg/m2 University of 15:48:00 [facility] Oxygen saturation 2023-06-09 98 /min [facility] in Arterial blood 15:48:00 [place] [facility] Systolic blood 2023-05-27 130 mm[Hg] [facility] pressure 19:51:00 [facility] Diastolic blood 2023-05-27 82 mm[Hg] University o f pressure 19:51:00 [facility] Heart rate 2023-05-27 85 /min University of 19:49:00 [facility] Respiratory rate 2023-05-27 18 /min University of 19:49:00 [facility] Body height 2023-05-27 170.2 cm University of 19:49:00 [facility] Body weight 2023-05-27 95.346 kg University of 19:49:00 [facility] BMI 2023-05-27 32.92 kg/m2 University of 19:49:00 [facility] Oxygen saturation 2023-05-27 100 /min [facility] in Arterial blood 19:49:00 [place] [facility]xim[facility] Systolic blood 2023-05-25 145 mm[Hg] lower bp when University o f pressure 17:16:00 retaken/ [place] [facility] Diastolic blood 2023-05-25 100 mm[Hg] lower bp when University of pressure 17:16:00 retaken/ [place] [facility] Heart rate 2023-05-25 88 /min University 17:16:00 [facility] Body temperature 2023-05-25 36.67 Y[facility] 17:15:00 [facility] Respiratory rate 2023-05-25 20 /min University 17:15:00 [facility] Oxygen saturation 2023-05-25 96 /min [facility] in Arterial blood 17:15:00 [facility] by Pulse oximetry Branch Body height 2023-05-25 170.2 cm University 07:15:00 [facility] Body weight 2023-05-25 95.5 kg [facility] 07:15:00 [facility] BMI 2023-05-25 32.97 kg/m2 University 07:15:00 [facility] BMI (Body Mass 2023-05-23 32.6 kg/m2 [facility] Index) 00:00:00 Urology BP Systolic 2023-05-23 167 mm[Hg] [facility] 00:00:00 Urology Body Weight 2023-05-23 208 [lb_av] [facility] 00:00:00 Urology Height 2023-05-23 67 [in_i] [facility] 00:00:00 Urology BP Diastolic 2023-05-23 90 mm[Hg] [facility] 00:00:00 Urology Systolic blood 2023-05-05 166 mm[Hg] [facility] pressure 15:51:00 [facility] Diastolic blood 2023-05-05 90 mm[Hg] University o f pressure 15:51:00 [facility] Heart rate 2023-05-05 88 /min University 15:45:00 [facility] Body temperature 2023-05-05 36.78 [facility]ennifer [facility] of 15:45:00 [facility] Body height 2023-05-05 170.2 cm University of 15:45:00 [facility] Body weight 2023-05-05 93.895 kg University of 15:45:00 [facility] BMI 2023-05-05 32.42 kg/m2 University 15:45:00 [facility] Oxygen saturation 2023-05-05 97 /min [facility] in Arterial blood 15:45:00 [place] [facility] P[facility] Systolic blood 2023-04-03 156 mm[Hg] [facility] pressure 20:39:00 [facility] Diastolic blood 2023-04-03 79 mm[Hg] University o f pressure 20:39:00 [facility] Heart rate 2023-04-03 79 /min University of 20:39:00 [facility] Body height 2023-04-03 170.2 cm University of 19:45:00 [facility] Body weight 2023-04-03 91.672 kg University of 19:45:00 [facility] BMI 2023-04-03 31.65 kg/m2 University of 19:45:00 [facility] Oxygen saturation 2023-04-03 99 /min University of in Arterial blood 19:45:00 [facility] faisal by Pulse oximetry Branch Systolic blood 2023-03-18 124 mm[Hg] [facility] of pressure 20:38:00 [facility] Diastolic blood 2023-03-18 71 mm[Hg] [facility] o f pressure 20:38:00 [facility] Heart rate 2023-03-18 77 /min University of 20:38:00 [facility] Body temperature 2023-03-18 36.5 Yennifer University of 20:38:00 [facility] Respiratory rate 2023-03-18 18 /min University of 20:38:00 [facility] Oxygen saturation 2023-03-18 97 /min [facility] of in Arterial blood 20:38:00 [facility] by Pulse oximetry Branch Body height 2023-03-18 170.2 cm University of 08:33:00 [facility] Body weight 2023-03-18 87.454 kg University of 08:33:00 [facility] BMI 2023-03-18 30.20 kg/m2 University of 08:33:00 [facility] Systolic blood 2023-01-07 150 mm[Hg] University of pressure 14:38:00 [facility] Diastolic blood 2023-01-07 88 mm[Hg] [facility] o f pressure 14:38:00 [facility] Heart rate 2023-01-07 75 /min University of 14:37:00 [facility] Body temperature 2023-01-07 36.94 Yenn[facility] 14:37:00 [facility] Body height 2023-01-07 170.2 cm University of 14:37:00 [facility] Body weight 2023-01-07 96.616 kg University of 14:37:00 [facility] BMI 2023-01-07 33.36 kg/m2 University of 14:37:00 [facility] Oxygen saturation 2023-01-07 100 /min University of in Arterial blood 14:37:00 [facility] faisal by Pulse oximetry Branch Systolic blood 2022-12-10 149 mm[Hg] [facility] pressure 13:10:00 [facility] Diastolic blood 2022-12-10 73 mm[Hg] University o f pressure 13:10:00 [facility] Heart rate 2022-12-10 82 /min University of 13:04:00 [facility] Body height 2022-12-10 170.2 cm University of 13:04:00 [facility] Body weight 2022-12-10 95.89 kg University of 13:04:00 [facility] BMI 2022-12-10 33.11 kg/m2 University of 13:04:00 [facility] Oxygen saturation 2022-12-10 98 /min University of in Arterial blood 13:04:00 [facility] by Pulse oximetry [facility] Systolic blood 2022-11-07 124 mm[Hg] [facility] of pressure 21:48:00 [facility] Diastolic blood 2022-11-07 71 mm[Hg] [facility] o f pressure 21:48:00 [facility] Heart rate 2022-11-07 79 /min University of 21:47:00 [facility] Body height 2022-11-07 170.2 cm University of 21:47:00 [facility] Body weight 2022-11-07 94.802 kg University of 21:47:00 [facility] BMI 2022-11-07 32.73 kg/m2 University of 21:47:00 [facility] Oxygen saturation 2022-11-07 98 /min University of in Arterial blood 21:47:00 [facility] faisal by Pulse oximetry Branch Systolic blood 2022-10-28 134 mm[Hg] [facility] of pressure 16:04:00 [facility] Diastolic blood 2022-10-28 84 mm[Hg] University o f pressure 16:04:00 [facility] Heart rate 2022-10-28 97 /min University of 16:03:00 [facility] Body temperature 2022-10-28 37.06 Yennifer University [facility] 16:03:00 [facility] Body height 2022-10-28 170.2 cm University 16:03:00 [facility] Body weight 2022-10-28 93.895 kg [facility] 16:03:00 [facility] BMI 2022-10-28 32.42 kg/m2 University 16:03:00 [facility] Oxygen saturation 2022-10-28 97 /min [facility] Arterial blood 16:03:00 [facility] by Pulse oximetry [facility] BP Diastolic 2022-07-25 80 mm[Hg] [facility] 00:00:00 [facility] Height 2022-07-25 67 [in_i] [facility] 00:00:00 [facility] BMI (Body Mass 2022-07-25 33.2 kg/m2 [facility] Index) 00:00:00 [facility] BP Systolic 2022-07-25 126 mm[Hg] [facility] 00:00:00 [facility] Body Weight 2022-07-25 212 [lb_av] [facility] 00:00:00 [facility] BP Diastolic 2022-07-11 80 mm[Hg] [facility] 00:00:00 [facility] Height 2022-07-11 67 [in_i] [facility] 00:00:00 [facility] BMI (Body Mass 2022-07-11 1.9 kg/m2 [facility] Index) 00:00:00 [facility] BP Systolic 2022-07-11 126 mm[Hg] [facility] 00:00:00 [facility] Body Weight 2022-07-11 12 [lb_av] [facility] 00:00:00 [facility] Systolic blood 2021-10-30 126 mm[Hg] [facility] pressure 21:35:00 [facility] Diastolic blood 2021-10-30 80 mm[Hg] [facility] o [facility] pressure 21:35:00 [facility] Heart rate 2021-10-30 85 /min [facility] 21:35:00 [facility] Body height 2021-10-30 170.2 cm [facility] 21:35:00 [facility] Body weight 2021-10-30 91.173 kg [facility] 21:35:00 [facility] [facility] BMI 2021-10-30 31.48 kg/m2 University 21:35:00 [facility] Procedures Procedure Date / Time Performing Clinician Source Performed POCT GLUCOSE (AUTOMATED) 2023-05-25 17:12:00 [facility] POCT GLUCOSE (AUTOMATED) 2023-05-25 13:27:00 Wali [facility] XR ELBOW >3 VW RIGHT 2023-05-25 10:50:00 Chela Acevedo [facility] HB ECG ROUTINE & RHYTHM 2023-05-25 09:34:19 Chela Acevedo [facility] POCT GLUCOSE (AUTOMATED) 2023-05-25 09:09:00 Wali [facility] BLOOD CULTURE SCREEN 2023-05-25 08:44:00 Chela Acevedo [facility] URIC ACID 2023-05-25 08:37:00 [facility] C-REACTIVE PROTEIN 2023-05-25 08:37:00 [facility] TROPONIN I 2023-05-25 08:37:00 Chela Acevedo [facility] HEPATIC FUNCTION PANEL 2023-05-25 08:37:00 Chela Acevedo [facility] ([id number]) (ALB,T.PRO,BILI [facility] T,BU/BC,ALT,AST,ALK PHOS) BASIC METABOLIC PANEL 2023-05-25 08:37:00 Cheal Acevedo [facility] (NA, K, CL, CO2, GLUCOSE, Medica l Branch BUN, CREATININE, CA) LIPID PANEL ([id number])(TOTAL 2023-05-25 08:37:00 Jayro Acevedo [facility] TRIGLYCERIDES, HDL) SEDIMENTATION RATE 2023-05-25 08:37:00 [facility] CBC WITH DIFF 2023-05-25 08:37:00 Chela Acevedo [facility] GLYCOSYLATED HEMOGLOBIN 2023-05-25 08:37:00 Curtis Chela [facility] (A1C) [facility] PROTHROMBIN TIME / INR 2023-05-25 08:37:00 Chela Acevedo [facility] ACTIVATED PARTIAL 2023-05-25 08:37:[address] [facility] SLEEP STUDY DATA REPORT 2023-04-29 05:01:00 Doctor Unassigned, U [facility] Name Medical [place] EXTERNAL PROVIDER - 2023-04-02 05:01:00 Doctor Unassigned, [facility] WOMEN'S SERVICES [place] [facility] [place] RADIOLOGY POCT GLUCOSE (AUTOMATED) 2023-03-18 16:20:00 Brenda Barroso [facility] ch TROPONIN I 2023-03-18 15:28:00 Keyona Matias [facility] CREATININE, URINE RANDOM 2023-03-18 15:19:00 [facility] UREA NITROGEN, URINE 2023-03-18 15:19:00 Keyona Matias [facility] SODIUM, URINE RANDOM 2023-03-18 15:19:00 Keyona Matias [facility] TRANSTHORACIC ECHO (TTE) 2023-03-18 14:50:00 Keyona Matias [facility] COMPLETE W/ CONTRAST Medical [facility] CT ABDOMEN PELVIS W 2023-03-18 13:39:52 Keyona Matias [facility] CONTRAST [facility] CT ANGIOGRAM CHEST 2023-03-18 13:39:35 Keyona Matias [facility] POCT GLUCOSE (AUTOMATED) 2023-03-18 12:34:00 Brenda Bar[facility] BLOOD CULTURE SCREEN 2023-03-18 11:11:00 Keyona Matias [facility] BLOOD CULTURE SCREEN 2023-03-18 11:04:00 Keyona Matias isaiah [facility] XR CHEST 2 VW 2023-03-18 10:46:37 [facility] LIPASE 2023-03-18 09:42:[address] [facility] MAGNESIUM 2023-03-18 09:42:00 Florencio [facility] TROPONIN I 2023-03-18 09:42:00 Florencio [facility] THYROID STIMULATING 2023-03-18 09:42:00 [facility] HEPATIC FUNCTION PANEL 2023-03-18 09:42:00 Florencio [facility] ([id number]) (ALB,T.PRO,BILI Medical Branch T,BU/BC,ALT,AST,ALK PHOS) BASIC METABOLIC PANEL 2023-03-18 09:42:00 [facility] (NA, K, CL, CO2, GLUCOSE, Medica l Branch BUN, CREATININE, CA) SEDIMENTATION RATE 2023-03-18 09:42:00 [facility] WITH DIFF 2023-03-18 09:42:00 Florencio [facility] PROTHROMBIN TIME / INR 2023-03-18 09:42:00 Florencio [facility] N-TERMINAL PRO-BNP 2023-03-18 09:42:00 Florencio [facility] COMP. METABOLIC PANEL 2022-10-28 16:52:00 [facility] ([id number]) [facility] CBC WITH DIFF 2022-10-28 16:52:00 Cosme [facility] HB ECG ROUTINE & RHYTHM 2022-10-28 16:22:30 [facility] ASSIGNMENT OF BENEFITS 2022-10-28 15:40:05 Doctor Unassigned, [facility] Medical [place] DIABETES TESTING REPORTS 2022-09-25 06:01:00 Doctor Óscar, [facility] EXTERNAL PROVIDER RECORDS 2022-04-29 05:01:00 Doctor Óscar, [facility] MEDICATION CORRESPONDENCE 2021-11-29 06:01:00 Doctor Óscar, [facility] Colonoscopy Thru Stoma 2016-02-11 00:00:00 Azale a Orthopedic Spx Sports Medicine Diagnostic Colonoscopy 2015-05-15 00:00:00 Rafal on [facility] Operation on Lumbar Spine Poojato n [facility] Plan of Care Planned Activity Planned Date Details Comments Source Future Scheduled Test 2022-09-26 Hepatitis C Method [facility] 12:03:42 screening (procedure) [code = 387411685] Future Scheduled Test 2022-09-26 COLONOSCOPY Method [facility] 12:03:42 SCREENING [code = COLONOSCOPY SCREENING] Future Scheduled Test 2022-09-26 SHINGLES VACCINES (1 [facility] 12:03:42 of 2) [code = SHINGLES VACCINES (1 of 2)] Future Scheduled Test 2022-09-26 COVID-19 VACCINE (3 [facility] 12:03:42 - Booster for Pfizer series) [code = COVID-19 VACCINE (3 - Booster for Pfizer series)] Future Scheduled Test 2022-09-26 INFLUENZA VACCINE M [facility] 12:03:42 [code = INFLUENZA VACCINE] Future Appointment 2023-10-23 Ani Mason 09:00:00 [id number] [facility] [address]; , [place] [address] Encounters Start End Encounter Admission Attending Care Care Encounter Source Date/Time Date/Time Type Type Clinicians Facility Department ID 2023-04-23 Inpatient CHIKI GarciaNE DAYS [id number] [facility] 08:00:00 Lana Larsen [facility] are [facility] 2023-08-07 2023-08-[address] [facility] [place] [facility] [id number] [facility] 00:00:00 Abner Barragan MD: [id number] [facility] [address], [place] [address] , Ph. 2023-08-05 2023-08-05 Outpatient R ABBI AGUIAR [facility] [id number] [facility] 13:40:00 13:40:00 ABBI AGUIAR [facility] 2023-08-01 2023-08-[address] [facility] [place] - [id number] [place] 00:00:00 00:00:00 Abner Barragan MD: [id number] [facility] [address], [place] [address] , Ph. 2023-07-23 2023-07-23 Outpatient R ECHO [facility] [id number] Univers 16:00:00 16:00:00 DELPHINE ity [facility] 2023-07-16 2023-07-16 Outpatient R EDA ROSEN [facility] [id number] Univers 13:00:00 13:00:00 EDA ROSEN i ty [facility] 2023-07-11 2023-07-11 Outpatient R ABBI AGUIAR [facility] [id number] Univers 15:40:00 15:40:00 ABBI AGUIAR [facility] 2023-07-04 2023-07-04 Telephone Meek DCLUCIANO [id number] Univers 00:00:00 00:00:00 Eda MULTISPEC 350.1.13.10 ity of [place].2.[place] [id number] [facility] AND [place] [address] DIABETES CLINIC 2023-07-03 2023-07-03 Outpatient Jerad STARKEY [facility] [id number] Univers 10:00:00 10:00:00 JOHN [facility] 2023-06-27 2023-06-27 Telephone Cosme [facility] [id number] Univers 00:00:00 00:00:00 [facility] 350.1.13.10 ity of [place] 4.2.7.2.686 Aditya as RYAN?BLEA [id number] [address] MEDICAL OFFICE BUILDING 2023-06-26 2023-06-26 Telephone RICARDO Aguiar 1.2.170.319 [id number] Univers 00:00:00 00:00:00 Abbi PEDIATRIC 350.1.13.10 it[place] of [place] [id number] 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, Ang - [facility] 1.2.840.1 14 [id number] Univers 12:45:00 13:00:00 Visit Abbi Aguiar [facility] 350.1.13.10 ity of [place] 4.2.7.2.686 Aditya as RYAN?BLEA [id number] Ne hipolito SALINAS [address] [facility] OFFICE [facility] 2023-06-09 2023-06-09 Outpatient R ABBI AGUIAR [facility] [id number] Univers 11:00:00 11:31:39 ABBI AGUIAR [facility] 2023-06-09 2023-06-09 Office [facility] 1.2.840.114 [id number] Univers 11:00:00 11:31:39 Visit Abbi [facility] 350.1.13.10 ity of [place] 4.2.7.2.686 Aditya as RYAN?BLEA [id number] Ne hipolito CRUZ 0[address] [facility] OFFICE [facility] 2023-06-05 2023-06-05 Outpatient R ABBI AGUIAR [facility] [id number] Univers 16:00:00 16:00:00 ABBI AGUIAR [facility] 2023-06-03 2023-06-03 Outpatient R [facility] [id number] Univers 08:30:00 08:30:00 itisaiah [facility] 2023-05-27 2023-05-27 Outpatient R ABBI AGUIAR [facility] [id number] Univers 14:40:00 15:10:01 COSME ABBI ity [facility] 2023-05-27 2023-05-27 Office [facility] 1.2.840.114 [id number] Univers 14:40:00 15:10:01 Visit Counts include 234 beds at the [facility] 350.1.13.10 ity [facility] 4.2.7.2.686 Aditya as RYAN?BLEA [id number] Ne hipolito SALINAS [address] [place] [address] MEDICAL OFFICE BUILDING 2023-05-27 2023-05-27 Outpatient Champion_P [facility] 00:00:00 00:00:00 [id number] [facility] 2023-05-27 2023-05-27 Outpatient Champion_P [facility] 00:00:00 00:00:00 [id number] [facility] 2023-05-27 2023-05-27 Outpatient Champion_P [facility] 00:00:00 00:00:00 [id number] [facility] 2023-05-27 2023-05-27 Outpatient Champion_P [facility] 00:00:00 00:00:00 [id number] [facility] 2023-05-27 2023-05-27 Transition RANI KumarEmily 1.2.840.114 10 [id number] Univers 00:00:00 00:00:00 of Care Beatriz DANIELS 350.1.13.10 i ty of [place].2.7.2.[place] [id number] [facility] [address] [place] 2023-05-25 2023-05-25 Outpatient [facility] [id number] Univers 01:50:00 13:50:00 WALI natarajan of [facility] 2023-05-25 2023-05-25 [facility] Wali WALLIS 1.2.8 40.114 [id number] Univers 01:50:00 13:50:00 Encounter Roni Mccracken 350.1.13.[address] [facility] 4.2.7.2.686 Aditya as [id number] [facility] [address] [place] 2023-05-23 2023-05-23 Outpatient Champion_P [facility] 00:00:00 00:00:00 [id number] [facility] 2023-05-23 2023-05-23 Outpatient Champion_P [facility] 2043 [facility] 00:00:00 00:00:00 [id number] [facility] 2023-05-23 2023-05-[address] [facility] [place] - [id number] Lela tapia 00:00:00 00:00:00 Abner Barragan MD: [id number] [facility] Urology [facility] [address], [place] [address] , Ph. 2023-05-19 2023-05-19 Outpatient Champion_P [facility] 00:00:00 00:00:00 [id number] [facility] 2023-05-19 2023-05-19 Outpatient Champion_P [facility] 20[facility] 00:00:00 00:00:00 [id number] [facility] 2023-05-06 2023-05-06 Patient Doctor YANCY 1.2.840.114 [id number] [facility] 00:00:00 00:00:00 Secure Msg Unassigned, SHARONA 350.1.13.10 ity of [place] [facility] 4.2.7.2.686 Aditya as [id number] [address] 2023-05-05 2023-05-05 Outpatient R ABBI AGUIAR [facility] [id number] Univers 10:40:00 11:35:14 ABBI AGUIAR [facility] 2023-05-05 2023-05-05 Office [facility] 1.2.840.114 [id number] Univers 10:40:00 11:35:14 Visit Counts include 234 beds at the [facility] 350.1.13.10 ity of [place] 4.2.7.2.686 Aditya as RYAN?BLEA [id number] [address] MEDICAL OFFICE BUILDING 2023-05-05 2023-05-05 Letter [facility] 1.2.840.114 [id number] Univers 00:00:00 00:00:00 (Out) Counts include 234 beds at the [facility] 350.1.13.10 ity of [facility] 4.2.7.2.686 Aditya as RYAN?BLEA [id number] [address] MEDICAL OFFICE BUILDING 2023-05-01 2023-05-01 Patient Doctor YANCY 1.2.840.114 [id number] Univers 00:00:00 00:00:00 Secure Msg Unassigned, SHARONA 350.1.13.10 ity of [place] [facility] 4.2.7.2.686 Aditya as [id number] [facility] [address] [place] 2023-04-29 2023-04-29 Food Processing Scientist Neetu Russell [facility] 1.2 .840.114 [id number] Univers 09:00:00 09:15:00 Visit Jeffrey Maguire 350.1.13. 10 ity [facility] 4.2.7.2.686 [place] [facility] [id number] [facility] [address] [place] 2023-04-29 2023-04-29 Outpatient R JEFFREY MAGUIRE [facility] [id number] Univers 09:00:00 09:00:00 JEFFREY MAGUIRE ity [facility] 2023-04-29 2023-04-29 Orders Doctor YANCY 1.2.840.114 [id number] [facility] 00:00:00 00:00:00 Only Unassigned, SHARONA 350.1.13.10 ity of [place] [facility] 4.2.7.2.686 Aditya as [id number] [address] 2023-04-03 2023-04-03 Outpatient R ABBI AGUIAR [facility] [id number] Univers 15:40:00 16:04:10 ABBI AGUIAR [facility] 2023-04-03 2023-04-03 Office [facility] 1.2.840.114 [id number] Univers 15:40:00 16:04:10 Visit Counts include 234 beds at the [facility] 350.1.13.10 ity of [place] 4.2.7.2.686 Aditya as RYAN?BLEA [id number] [address] MEDICAL OFFICE [facility] 2023-04-02 2023-04-02 Orders Doctor YANCY 1.2.840.114 [id number] Univers 00:00:00 00:00:00 Only Unassigned, SHARONA 350.1.13.10 ity of [place] [facility] 4.2.7.2.686 Aditya as [id number] [facility] [address] 2023-03-26 2023-03-26 Patient Doctor YANCY 1.2.840.114 [id number] Univers 00:00:00 00:00:00 Secure Msg Unassigned, SHARONA 350.1.13.10 ity of [place] [facility] 4.2.7.2.686 Aditya as [id number] [facility] [address] 2023-03-18 2023-03-18 Outpatient U GEE [facility] [id number] Univers 03:22:00 17:57:00 AFA ity [facility] 2023-03-18 2023-03-18 [facility] KADI Barroso 1.2.665.781 [id number] Univers 03:22:00 17:57:00 Encounter Brenda TABOR 350.1.13.10 ity of [facility] 4.2.7.2.686 [facility] [id number] [facility] [address] 2023-02-20 2023-02-20 Outpatient TEVIN Oneill, [facility] [id number] [facility] 11:53:00 23:59:00 Venkatesh Lyles [facility] 2023-02-07 2023-02-07 Outpatient ABBI MAYS [facility] [id number] Univers 09:40:00 09:40:00 ABBI AGUIAR [facility] 2023-01-29 2023-01-29 Outpatient Champion_P [facility] 00:00:00 00:00:00 [id number] [facility] 2023-01-29 2023-01-29 Outpatient Champion_P [facility] 20[facility] 00:00:00 00:00:00 [id number] [facility] 2023-01-08 2023-01-08 Outpatient Jerad BOB [facility] [id number] [facility] 15:00:00 15:00:00 HENRY sheriff [facility] 2023-01-07 2023-01-07 Food Processing Scientist Lab, Ang - Db [facility] 1.2.840.1 14 [id number] Univers 10:00:00 10:28:31 Visit Abbi Aguiar [facility] 350.1.13.10 ity of [place] 4.2.7.2.686 Aditya as RYAN?BLEA [id number] Ne hipolito SALINAS [address] [facility] OFFICE [facility] 2023-01-07 2023-01-07 Outpatient [facility] [id number] Univers 09:20:00 10:01:09 ABBI AGUIAR [facility] 2023-01-07 2023-01-07 Office [facility] 1.840.114 [id number] Univers 09:20:00 10:01:09 Visit Counts include 234 beds at the [facility] 350.1.13.10 ity of [place] 4.2.7.2.686 Aditya as RYAN?BLEA [id number] [facility] 0[address] [facility] OFFICE [facility] 2023-01-01 2023-01-01 Letter Jennifer, [facility] 1..840.114 [id number] Univers 00:00:00 00:00:00 (Out) General HEALTH 350.1.13.10 it y of Cardiology CLEAR 4.2.7.2.686 [place] [id number] [address] OFFICE [facility] 2023-01-01 2023-01-01 Patient Doctor [facility] 1.2.840.114 [id number] Univers 00:00:00 00:00:00 Secure Msg Unassigned, HEALTH 350.1.13.10 ity of [place] 4.2.7.2.686 [place] [id number] [address] OFFICE BUILDING 2022-12-31 2022-12-31 Telephone Gm [facility] 1.2.840.114 [id number] Univers 00:00:00 00:00:00 Cam HEALTH 350.1.13.10 it y of [place] 4.2.7.2.686 Aditya as RYAN?BLEA [id number] [facility] CRUZ 044 [facility] OFFICE BUILDING 2022-12-31 2022-12-31 Patient Doctor [facility] 1.2840.114 [id number] Univers 00:00:00 00:00:00 Secure Msg Unassigned, HEALTH 350.1.13.10 ity of [place] CLEAR 4.2.7.2.686 [place]ha [place] [id number] [place] [address] Branch OFFICE BUILDING 2022-12-20 2022-12-20 Telephone [facility] 1.2.278.073 [id number] Univers 00:00:00 00:00:00 Abbi HEALTH 350.1.13.10 ity of [place] 4.2.7.2.686 Aditya as RYAN?BLEA [id number] [address] OFFICE [facility] 2022-12-18 2022-12-18 Refill [facility] 1.2.840.114 [id number] Univers 00:00:00 00:00:00 Abbi HEALTH 350.1.13.10 ity of [place] 4.2.7.2.686 Aditya as RYAN?BLEA [id number] [address] OFFICE [facility] 2022-12-10 2022-12-10 [facility] [id number] Univers 08:00:00 08:57:16 [facility] 2022-12-10 2022-12-10 Office [facility] 1.2.840.114 [id number] Univers 08:00:00 08:57:16 Visit Counts include 234 beds at the [facility] 350.1.13.10 ity of [place] 4.2.7.2.686 Aditya as RYAN?BLEA [id number] [address] OFFICE [facility] 2022-12-06 2022-12-06 Outpatient R PAULINO [facility] [id number] Univers 15:20:00 15:20:00 HENRY natarajan o jaziel [facility] 2022-12-05 2022-12-05 Outpatient R COSME [facility] [id number] Univers 15:40:00 15:40:00 ABBI [facility] 2022-11-28 2022-11-28 Telephone [facility] 1.2.206.555 [id number] Univers 00:00:00 00:00:00 Counts include 234 beds at the [facility] 350.1.13.10 ity of [place] 4.2.7.2.686 Aditya as RYAN?BLEA [id number] [facility] [address] OFFICE [facility] 2022-11-26 2022-11-26 Outpatient [facility] [id number] Univers 10:20:00 10:20:00 [facility] 2022-11-13 2022-11-13 Nurse Ju HAINES 1.2.840.114 [id number] Univers 00:00:00 00:00:00 Triage ericka Colleen Villalpando [place].1.13.10 [place] [address].2.7.2.686 Aditya as [id number] [address] 2022-11-13 2022-11-13 Nurse YANCY Burris 1.2.840.114 [id number] Univers 00:00:00 00:00:00 Triage Jaja [place].13.10 [place] [address].7.2.686 Aditya as [id number] [address] 2022-11-12 2022-11-12 Outpatient [facility] [id number] Univers 08:00:00 08:00:00 [facility] 2022-11-10 2022-11-10 Outpatient AO_Cubbage_ AOSM AOSM 642 [id number] Anne 00:00:00 00:00:00 Luis Daniel [id number] Orth ope dic Sports Medicin e 2022-11-07 2022-11-07 [facility] [id number] Univers 15:40:00 16:12:45 [facility] 2022-11-07 2022-11-07 Office [facility] 1.2.840.114 [id number] Univers 15:40:00 16:12:45 Visit Counts include 234 beds at the [facility] 350.1.13.10 ity of [place] 4.2.7.2.686 Aditya as RYAN?BLEA [id number] Ne wildacaren [address] 2022-11-07 2022-11-07 Outpatient R COSME [facility] [id number] Univers 15:40:00 15:40:00 ABBI itisaiah [facility] 2022-11-06 2022-11-06 Telephone [facility] 1.2.390.080 [id number] Univers 00:00:00 00:00:00 Abbi HEALTH 350.1.13.10 ity of [place] 4.2.7.2.686 Aditya as RYAN?BLEA [id number] [address] OFFICE [facility] 2022-11-01 2022-11-01 Telephone [facility] 1.2.353.427 [id number] Univers 00:00:00 00:00:00 Abbi HEALTH 350.1.13.10 ity [facility] 4.2.7.2.686 Aditya as RYAN?BLEA [id number] [address] 2022-10-28 2022-10-28 Food Processing Scientist Lab, Ang - [facility] 1.2.840.1 14 [id number] Univers 10:45:00 11:31:43 Visit Cosme Counts include 234 beds at the [facility] 350.1.13.10 ity of [facility] 4.2.7.2.686 Aditya as RYAN?BLEA [id number] [address] OFFICE [facility] 2022-10-28 2022-10-28 Outpatient [facility] [id number] Univers 10:00:00 10:36:28 [facility] 2022-10-28 2022-10-28 Office [facility] 1.2.840.114 [id number] Univers 10:00:00 10:36:28 Visit Counts include 234 beds at the [facility] 350.1.13.10 ity of [place] [id number] Aditya as RYAN?BLEA [phone] [address] OFFICE [facility] 2022-10-28 2022-10-28 Orders Doctor HAINES 1.2.840.114 [id number] [employer] 00:00:00 00:00:00 Only Unassigned, SHARONA 350.1.13.10 ity of [place] [facility] 4.2.7.2.686 Aditya as [id number] [address] 2022-10-18 2022-10-18 Outpatient AO_Cubbage_ AOSM AOSM [id number] Anne 00:00:00 00:00:00 Luis Daniel [id number] [facility] 2022-10-18 2022-10-18 Outpatient AO_Cubbage_ AOSM AOSM [id number] Anne 00:00:00 00:00:00 Luis Daniel [id number] [facility] 2022-09-26 2022-09-26 Outpatient TEVIN Brar, [facility] [id number] [facility] 12:02:00 12:02:00 [facility]-25 2022-09-25 Outpatient Jerad WORRELL, [facility] [id number] [facility] 15:15:00 15:15:00 CAM natarajan [facility] 2022-09-25 2022-09-25 Orders Doctor YANCY 1.2.840.114 [id number] [facility] 00:00:00 00:00:00 Only Unassigned, SHARONA 350.1.13.10 ity of [place] [facility] 4.2.7.2.686 Aditya as [phone] [address] 2022-09-14 2022-09-14 Outpatient AO_Cubbage_ AOSM AOSM [id number] Anne 00:00:00 00:00:00 Luis Daniel [id number] [facility] 2022-08-09 2022-08-09 Outpatient AO_Cubbage_ AOSM AOSM [id number] Anne 00:00:00 00:00:00 Luis Daniel [id number] [facility] 2022-07-25 2022-07-25 Outpatient AO_Cubbage_ AOSM AOSM [id number] Anne 00:00:00 00:00:00 Luis Daniel [id number] [facility] e 2022-07-25 2022-07-25 Lana AOSM [place] - Ortho [id number] Anne 00:00:00 00:00:00 [place] - Or thope Cubbage, AO_Ofc dic MD: [id number] NCO_N Sports [facility] in [place] [address], [place] [id number] , Ph. 2022-07-22 2022-07-22 Outpatient AO_Cubbage_ AOSM AOSM 642 0982-20 Anne 00:00:00 00:00:00 Luis Daniel [id number] Orth ope dic Sports Medicin e 2022-07-16 2022-07-16 Outpatient AO_Cubbage_ AOSM AOSM 642 0982-20 Anne 00:00:00 00:00:00 Luis Daniel [id number] Orth ope dic Sports Medicin e 2022-07-11 2022-07-11 Outpatient AO_Cubbage_ AOSM AOSM 642 0982-20 Anne 00:00:00 00:00:00 Luis Daniel [id number] Orth ope dic Sports Medicin e 2022-07-11 2022-07-11 Lana [place]OSM [place] - Ortho [id number] Anne 00:00:00 00:00:00 [place] - Or thope Cubbage, AO_Ofc dic MD: 46904 NCO_N Sports [facility] [place] [address], [place] [address] , Ph. 2022-07-10 2022-07-10 Outpatient AO_Cubbage_ AOSM AOSM 642 0982-20 Anne 00:00:00 00:00:00 Luis Daniel [id number] Orth ope dic Sports Medicin e 2022-07-09 2022-07-09 Outpatient AO_Cubbage_ AOSM AOSM 642 0982-20 Anne 00:00:00 00:00:00 Luis Daniel [id number] Orth ope dic Sports Medicin e 2022-06-25 2022-06-25 Outpatient AO_Cubbage_ AOSM AOSM 642 0982-20 Anne 00:00:00 00:00:00 Luis Daniel [id number] Orth ope dic Sports Medicin e 2022-04-29 2022-04-29 Orders Doctor YANCY 1.2.840.114 [id number] Univers 00:00:00 00:00:00 Only Unassigned, SHARONA 350.1.13.10 ity of [place] [facility] 4.2.7.2.686 Aditya as [phone] [address] 2022-03-21 2022-03-21 Outpatient R BON [facility] [id number] Univers 10:15:00 10:15:00 LANA rosa isela [facility] 2022-03-11 2022-03-11 Telephone Team, [facility] YANCY 1.2.840.114 [id number] [facility] 00:00:00 00:00:00 Health SHARONA 350.1.13.10 it y of [facility] 4.2.7.2.686 [place] [phone] [address] 2021-11-29 2021-11-29 Orders Doctor YANCY 1.2.840.114 [id number] Univers 00:00:00 00:00:00 Only Unassigned, SHARONA 350.1.13.10 ity of [place] [facility] 4.2.7.2.686 Aditya as [phone] [address] 2021-11-27 2021-11-27 Outpatient R GM [facility] [id number] Univers 15:00:00 15:00:00 CAM natarajan [facility] 2021-11-01 2021-11-[address] [facility] 1.2.840.114 [id number] Univers 00:00:00 00:00:00 Cam HEALTH 350.1.13.10 it y of [place] 4.2.7.2.686 Aditya as RYAN?BLEA [phone] [address] MEDICAL OFFICE [facility] 2021-11-01 2021-11-[address] [facility] 1.2.840.114 [id number] Univers 00:00:00 00:00:00 Cam HEALTH 350.1.13.10 it y of [place] 4.2.7.2.686 Aditya as RYAN?BLEA [phone] [address] MEDICAL OFFICE [facility] 2021-10-30 2021-10-30 Food Processing Scientist Lab, Ang - Db [facility] 1.2.840.1 [id number] Univers 16:00:00 16:15:00 Visit Cam Worrell [facility] 350.1.13 .10 ity of [place] 4.2.7.2.686 Aditya as RYNA?BLEA [phone] Ne hipolito SALINAS [address] [facility] OFFICE [facility] 2021-10-30 2021-10-30 Outpatient [facility] [id number] Univers 16:00:00 16:00:00 [facility] 2021-10-30 2021-10-[address] [facility] 1.2.840.114 [id number] Univers 15:15:00 15:50:40 Visit [facility] 350.1.13.10 it y of [place] 4.2.7.2.686 Aditya as RYAN?BLEA [phone] Ne hipolito SALINAS 0[address] [facility] OFFICE [facility] 2021-10-30 2021-10-30 Outpatient Jerad [facility] [id number] Univers 15:15:00 15:50:40 [facility] 2021-10-29 2021-10-[address] [facility] 1.2.840.114 [id number] Univers 00:00:00 00:00:00 [facility] 350.1.13.10 it y of [place] 4.2.7.2.686 Aditya as RYAN?BLEA [phone] Ne hipolito SALINAS [address] [place] [address] OFFICE [facility] 2021-09-25 2021-09-25 Outpatient [facility] [id number] Univers 16:15:00 16:15:00 [facility] 2021-09-19 2021-09-19 Outpatient [facility] [id number] Univers 16:15:00 16:15:00 [facility] 2021-09-03 2021-09-03 Outpatient Jer[facility] [id number] Univers 10:00:00 10:00:00 [facility] 2021-07-30 2021-07-30 [facility]patient [facility] [id number] Univers 13:40:00 14:14:30 HENRY sheriff [facility] 2021-07-30 2021-07-30 Outpatient R PAULINO [facility] [id number] Univers 13:40:00 14:14:30 HENRY natarajan o jaziel [facility] 2021-07-30 2021-07-30 [facility] 1.2.840.114 [id number] Univers 13:37:22 14:14:30 Visit [facility] 350.1.13.10 ity of [facility] 4.2.7.2.686 [place] [phone] Ne hipolito [facility] 059 [facility] 2021-07-13 2021-07-[address] [facility] 1.2.840.114 [id number] Univers 00:00:00 00:00:00 [facility] 350.1.13.10 it y of [place] 4.2.7.2.686 Aditya as Ryan?Blea [phone] [facility] 044 [facility] Office [facility] 2021-07-10 2021-07-[address] [facility] 1.2.840.114 [id number] Univers 10:31:09 11:01:09 Visit [facility] 350.1.13.10 it y of [place] 4.2.7.2.686 Aditya as Ryan?Blea [phone] [address] Office [facility] 2021-07-10 2021-07-10 Outpatient R [facility] [id number] Univers 10:30:00 10:30:00 CAM ity of [facility] 2021-07-10 2021-07-10 Orders Doctor HAINES 1.2.840.114 [id number] Univers 00:00:00 00:00:00 Only Unassigned, SHARONA 350.1.13.10 ity of [place] [facility] 4.2.7.2.686 Aditya as [phone] [address] 2021-06-05 2021-06-05 Outpatient R BRONSON [facility] [id number] Univers 08:30:00 08:30:00 WENTGABRIEL itisaiah [facility] 2021-04-23 2021-04-23 [facility] 1.2.840.114 [id number] Univers 00:00:00 00:00:00 [facility] 350.1.13.10 it y of [place] 4.2.7.2.686 Aditya as Professio [phone] [address] Office [facility] One 2021-04-21 2021-04-21 [facility] 1.2.840.114 [id number] Univers 00:00:00 00:00:00 [facility] 350.1.13.10 it y of [place] 4.2.7.2.686 Aditya as Professio [phone] [address] One 2021-03-05 2021-03-05 [facility] 1.2.840.114 [id number] Univers 00:00:00 00:00:00 [facility] 350.1.13.10 it y of [place] 4.2.7.2.686 Aditya as Professio [phone] [address] 2021-03-01 2021-03-01 Patient Doctor YANCY 1.2.840.114 [id number] Univers 00:00:00 00:00:00 Secure Msg Unassigned, SHARONA 350.1.13.10 ity of [place] [facility] 4.2.7.2.686 Aditya as [phone] [address] 2021-02-27 2021-02-[address] [facility] 1.2.840.114 [id number] Univers 10:16:28 10:46:28 Visit [facility] 350.1.13.10 it y of [place] 4.2.7.2.686 Aditya as Professio [phone] [address] Office [facility] One 2021-02-27 2021-02-27 Outpatient R GM [facility] [id number] Univers 10:15:00 10:15:00 CAM ity [facility] 2021-02-20 2021-02-20 [facility] 1.2.840.114 [id number] Univers 07:49:54 23:59:00 Encounter Kermit Shipley 350.1.13.10 ity of [place] 4.2.7.2.686 [facility] [phone] [facility] [address] [place] 2021-02-20 2021-02-20 Outpatient [facility] [id number] [facility] 07:49:54 23:59:00 KERMIT ity [facility] 2021-02-20 2021-02-20 [facility] 1.2.840.114 [id number] Univers 07:49:41 23:59:00 Encounter Kermit Shipley 350.1.13.10 ity of [place] 4.2.7.2.686 [facility] [place] [phone] [address] 2021-02-20 2021-02-20 [facility] 1.2.763.380 [id number] [facility] 07:43:07 07:48:00 Encounter Cam Shipley 350.1.13.10 ity of [place] 4.2.7.2.686 [facility] [phone] [facility] [address] [place] 2021-02-20 2021-02-20 Outpatient [facility] [id number] Univers 00:00:00 00:00:00 KERMIT natarajan [facility] 2021-02-20 2021-02-20 [facility] 1.2.668.100 [id number] [facility] 00:00:00 00:00:00 [facility] 350.1.13.10 it y of [place] 4.2.7.2.686 Aditya as Professio [phone] [address] Office Building One 2021-02-19 2021-02-19 Food Processing Scientist Lab, Adc Fam Pob I [facility] 1.2. 840.114 [id number] [facility] 08:09:57 08:29:57 Visit Cam Worrell Ginger 350.1.13 .10 ity of [place] 4.2.7.2.686 Aditya as Professio [phone] Ne dical nal [address] [place] Office [address] One 2021-02-19 2021-02-19 Outpatient R [facility] [id number] Univers 08:20:00 08:20:00 ity of [facility] 2021-02-19 2021-02-19 Telephone Gm [facility] 1.2.840.114 [id number] Univers 00:00:00 00:00:00 [facility] 350.1.13.10 it y of [place] 4.2.7.2.686 Aditya as Professio [phone] Ne dical nal [address] [place] Office [facility] One 2021-02-14 2021-02-14 Outpatient R ISABELLE [facility] [id number] Univers 08:40:00 08:40:00 KERMIT ity of [facility] 2021-02-14 2021-02-14 Food Processing Scientist Lab, [facility] Fam Pob I [facility] 1.2. 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 840.114 [id number] Univers 14:46:58 15:06:58 Visit Kermit Portillo 350.1.13.10 ity of [place] 4.2.7.2.686 Aditya as Professio [phone] Ne dical nal [address] [place] Office [facility] One 2021-02-13 2021-02-13 Urgent Provider, [facility] 1.2.840.114 [id number] Univers 14:04:36 14:56:48 Care Kermit Portillo 350.1.13.10 ity of [place] 4.2.7.2.686 Aditya as Professio [phone] Ne dical nal [address] [place] Office Building One 2021-02-13 2021-02-13 Outpatient R ISABELLE [facility] [id number] Univers 14:00:00 14:00:00 KERMIT patteny [facility] 2020-12-28 2020-12-28 Outpatient KIYA, [facility] [id number] 9[address] [place] 00:00:00 00:00:00 HARJINDER [address] 2020-12-07 2020-12-07 Outpatient [facility] [id number] 940 [place] 00:00:00 00:00:00 907 Method i 2020-07-27 2020-07-27 Emergency MEMO, [facility] 418 [id number] [address] [place] 00:00:00 00:00:00 TIFFANIE 893 Method i 2020-06-26 2020-06-26 [facility] VERN [place] 1.2.840.114 [id number] Univers 14:04:00 23:59:00 Encounter Derian Vogel 350.1.13.10 ity of [facility] 4.2.7.2.686 Aditya as [phone] [address] 2020-06-26 2020-06-26 [facility] [id number] Univers 18:40:00 18:40:00 GABRIELA [facility] 2020-06-26 2020-06-26 Laboratory Lab, Adc Fam Pob [email or web address] 1.2. 840.114 [id number] Univers 18:05:18 18:25:18 [facility] 350.1.13.10 ity [facility] 4.2.7.2.686 Aditya as Professio [phone] Ne dical nal [address] Office Building One 2020-06-26 2020-06-26 Outpatient [facility] [id number] Univers 18:00:00 18:00:00 GABRIELA ity [facility] 2020-06-26 2020-06-26 Outpatient R [facility] [id number] Univers 14:20:00 14:20:00 ity [facility] 2020-06-26 2020-06-26 Outpatient R [facility] ACO [id number] Univers 00:00:00 00:00:00 DERIAN natarajan [facility] 2020-06-26 2020-06-26 Letter Doctor HAINES 1.2.840.114 [id number] Univers 00:00:00 00:00:00 (Out) Unassigned, SHARONA 350.1.13.10 ity of [place] [facility] 4.2.7.2.686 Aditya as [phone] [address] Results Test Description Test Time Test Comments Results Result Comments Source POCT GLUCOSE (AUTOMATED) 2023-05-25 17:13:54 Test Item Value Reference Range Interpretation Comme nts POCT GLU (test code = 8442488469) 351 mg/dL 70-110 H Notified Provider Lab Interpretation (test code = 96549-2) Abnormal [facility] GLUCOSE (AUTOMATED)2023-05-25 13:28:11 Test Item Value Reference Range Interpretation Comments POCT GLU (test code = 237 mg/dL 70-110 H Notifi ed Provider [id number]) Lab Interpretation (test Abnormal code = 33289-3) [facility] GLUCOSE (AUTOMATED)2023-05-25 09:11:12 Test Item Value Reference Range Interpretation Comments POCT GLU (test code = 1814311251) 240 mg/dL 70-110 H Lab Interpretation (test code = Abnormal 58717-8) [facility] GLUCOSE (AUTOMATED)2023-03-18 16:40:54 Test Item Value Reference Range Interpretation Comments POCT GLU (test code = 0195781256) 155 mg/dL 70-110 H Lab Interpretation (test code = Abnormal 53899-4) [facility] GLUCOSE (AUTOMATED)2023-03-18 12:51:45 Test Item Value Reference Range Interpretation Comments POCT GLU (test code = 8936312609) 176 mg/dL 70-110 H Lab Interpretation (test code = Abnormal 28513-6) [facility] METABOLIC PANEL (13023)2022-10-28 21:02:53 Test Item Value Reference Range Interpretation Comments NA (test code = 135 mmol/L 135-145 5012665277) K (test code = 4.3 mmol/L 3.5-5.0 9944353932) CL (test code = 96 mmol/L 98-108 L 7990751563) CO2 TOTAL (test code = 31 mmol/L 23-31 8829866269) AGAP (test code = 2-16 6712959920) BUN (test code = 16 mg/dL 7-23 6700407006) GLUCOSE (test code = 254 mg/dL 70-110 H 7959201133) CREATININE (test code = 1.09 mg/dL 0.60-1.25 9725016367) TOTAL BILI (test code = 1.9 mg/dL 0.1-1.1 H 3324790805) CALCIUM (test code = 9.1 mg/dL 8.6-10.6 7453991981) T PROTEIN (test code = 7.2 g/dL 6.3-8.2 0677151444) ALBUMIN (test code = 4.2 g/dL 3.5-5.0 5804448751) ALK PHOS (test code = 102 U/L 34-122 2907266429) ALTv (test code = 26 U/L 5-50 2-6) AST(SGOT) (test code = 27 U/L 13-40 1034159240) eGFR (test code = mL/min/1.73m2 6462263211) DAIJA (test code = DAIJA) Association of Glomerular Filtration Rate (GFR) and Staging of Kidney Disease* + --+ --+ ------+| GFR (mL/min/1.73 m2) ?| With Kidney Damage ?| ?Without Kidney Damage+ --------+ --------+ +| ?>90 ?| ?Stage one ?| ? Normal ?+ ---+ ---+ -------+| ?60-89 ?| ?Stage two ?| ? Decreased GFR ? + --+ --+ ------+| ?30-59 ?| ?Stage three ?| ? Stage three ? + --+ --+ ------+| ?15-29 ?| ?Stage four ? | ? Stage four ?+ ---+ ---+ -------+| ?<15 (or dialysis) ? ?| ?Stage five ? | ? Stage five ?+ ---+ ---+ -------+ *Each stage assumes the associated GFR level has been in effect for at least three months. ?Stages 1 to 5, with or without kidney disease, indicate chronic kidney disease. Notes: Determination of stages one and two (with eGFR >59mL/min/1.73 m2) requires estimation of kidney damage for at least three months as defined by structural or functional abnormalities of the kidney, manifested by either:Pathological abnormalities or Markers of kidney damage (including abnormalities in the composition of the blood or urine or abnormalities in imaging tests). Lab Interpretation Abnormal (test code = 19233-3) [facility] WITH [id number] 20:02:57 Test Item Value Reference Range Interpretation Comments WBC (test code = 10.24 See_Comment [Automated 6690-2) message] The sy stem which generated this result transmitted reference range : 4.20 - 10.70 10*3/?L. The reference range was not used to interpret this result as normal/abnormal . RBC (test code = 5.12 See_Comment [Automated 789-8) message] The sy stem which generated this result transmitted reference range : 4.26 - 5.52 10*6/?L. The reference range was not used to interpret this result as normal/abnormal . HGB (test code = 15.8 g/dL 12.2-16.4 718-7) HCT (test code = 45.7 % 38.4-49.3 4544-3) MCV (test code = 89.3 fL 81.7-95.6 787-2) MCH (test code = 30.9 pg 26.1-32.7 785-6) MCHC (test code = 34.6 g/dL 31.2-35.0 786-4) RDW-SD (test code = 37.8 fL 38.5-51.6 L 25827-5) RDW-CV (test code = 11.7 % 12.1-15.4 L 788-0) PLT (test code = 210 See_Comment [Automated 777-3) message] The sy stem which generated this result transmitted reference range : 150 - 328 10*3/ ?L. The reference r antonio was not used to interpret this result as normal/abnormal . MPV (test code = 11.4 fL 9.8-13.0 68518-6) NRBC/100 WBC (test 0.0 See_Comment [Automat ed code = 5899953437) message] The system which generated this result transmitted reference range : 0.0 - 10.0 /100 WBCs. The refer ence range was not u sed to interpret th is result as normal/abnormal . NRBC x10^3 (test code See_Comment [Auto mated = 7381572098) message] The s ystem which generated this result transmitted reference range : 10*3/?L. The reference range was not used to interpret this result as normal/abnormal . GRAN MAT (NEUT) % 76.6 % (test code = 770-8) IMM GRAN % (test code 0.40 % = 6569217257) LYMPH % (test code = 15.8 % 736-9) MONO % (test code = 5.8 % 5905-5) EOS % (test code = 1.0 % 713-8) BASO % (test code = 0.4 % 706-2) GRAN MAT x10^3(ANC) 7.85 10*3/uL 1.99-6.95 H (test code = 2288342257) IMM GRAN x10^3 (test 0.04 10*3/uL 0.00-0.06 code = 6939550965) LYMPH x10^3 (test code 1.62 10*3/uL 1.09-3.23 = 731-0) MONO x10^3 (test code 0.59 10*3/uL 0.36-1.02 = 742-7) EOS x10^3 (test code = 0.10 10*3/uL 0.06-0.53 711-2) BASO x10^3 (test code 0.04 10*3/uL 0.01-0.09 = 704-7) Lab Interpretation Abnormal (test code = 69041-5) [facility] WITH [id number] 20:02:57 Test Item Value Reference Range Interpretation Comments WBC (test code = 10.24 See_Comment [Automated 6290-2) message] The sy stem which generated this result transmitted reference range : 4.20 - 10.70 10*3/?L. The reference range was not used to interpret this result as normal/abnormal . RBC (test code = 5.12 See_Comment [Automated 493-8) message] The sy stem which generated this result transmitted reference range : 4.26 - 5.52 10*6/?L. The reference range was not used to interpret this result as normal/abnormal . HGB (test code = 15.8 g/dL 12.2-16.4 718-7) HCT (test code = 45.7 % 38.4-49.3 4544-3) MCV (test code = 89.3 fL 81.7-95.6 787-2) MCH (test code = 30.9 pg 26.1-32.7 785-6) MCHC (test code = 34.6 g/dL 31.2-35.0 786-4) RDW-SD (test code = 37.8 fL 38.5-51.6 L 56568-7) RDW-CV (test code = 11.7 % 12.1-15.4 L 788-0) PLT (test code = 210 See_Comment [Automated 777-3) message] The sy stem which generated this result transmitted reference range : 150 - 328 10*3/ ?L. The reference r antonio was not used to interpret this result as normal/abnormal . MPV (test code = 11.4 fL 9.8-13.0 01131-1) NRBC/100 WBC (test 0.0 See_Comment [Automat ed code = 9150174260) message] The system which generated this result transmitted reference range : 0.0 - 10.0 /100 WBCs. The refer ence range was not u sed to interpret th is result as normal/abnormal . NRBC x10^3 (test code See_Comment [Auto mated = 3243800307) message] The s ystem which generated this result transmitted reference range : 10*3/?L. The reference range was not used to interpret this result as normal/abnormal . GRAN MAT (NEUT) % 76.6 % (test code = 770-8) IMM GRAN % (test code 0.40 % = 7677385840) LYMPH % (test code = 15.8 % 736-9) MONO % (test code = 5.8 % 5905-5) EOS % (test code = 1.0 % 713-8) BASO % (test code = 0.4 % 706-2) GRAN MAT x10^3(ANC) 7.85 10*3/uL 1.99-6.95 H (test code = 9580352169) IMM GRAN x10^3 (test 0.04 10*3/uL 0.00-0.06 code = 0723726234) LYMPH x10^3 (test code 1.62 10*3/uL 1.09-3.23 = 731-0) MONO x10^3 (test code 0.59 10*3/uL 0.36-1.02 = 742-7) EOS x10^3 (test code = 0.10 10*3/uL 0.06-0.53 711-2) BASO x10^3 (test code 0.04 10*3/uL 0.01-0.09 = 704-7) Lab Interpretation Abnormal (test code = 97222-3) [facility]- XR T-SPINE 2 [id number] 12:47:00 [facility] CYPRESSName: PJ MENDIETA : 1965 Sex: MPatient Name: PJ MENDIETA Unit No: [id number] EXAMS: CPT CODE: [id number] XR T-SPINE 2 VIEWS 83613 Thoracic spine 3 views 09/26/2022 CLINICAL HISTORY: Pain COMPARISON: None available LOCATION: W1 FINDINGS: There is no fracture or malalignment. There are no osteolytic or osteoblastic lesions. There are mild chronic appearing degenerative changes. The soft tissue is unremarkable. IMPRESSION: No acute radiographic abnormalities. at 1247 Reported and signed by: Brandt Sanchez CC: Yancy YOUNG Technologist: Stu Rodrigues Time: DAP (Gym2): Air Kerma (mGy): Trscr Dt/Tm: 09/26/2022 (1247) by:[email or web address] Electronic Signature Date/Time: (1247)Orig Print D/T: S: 09/26/2022 (0647) Name: [facility] Phys: [email or web address] - Yancy Brar [address] : 1965 Age: 57 Sex: [place] [id number] [facility] Exam Date: 09/26/2022 Status: REG CLI PH: FAX: PAGE 1 Signed Report History and Physical Notes Date/Time Note Provider Source 2023-05-25 02:01:24 [id number] of this note [facility] is different from the original.BRIEN Frey Admit H&PPCP: Abbi Natarajan of Service: 05/25/2023HIEF COMPLAINT: Elbow painHISTORY OF PRESENT ILLNESSPj Mendieta is a 58 year old male with a PMH of HTN, HLD, poorly controlled insulin dependent DM presenting as a transfer from [place]. Two weeks ago sindhu sustained a fall where he used his right elbow to secure himself. He noted the pain, but noticed the swelling fluctuance only two days ago. Since, there has been developing point, tenderness to palpation and swelling which brought him to [place] ER. There BP was 162/81 pulse 98, afebrile 98.4F, labs WBC 10.6, Hgb 14.8, PLT 215 glucose 326, cr:1.4. X-ray of elbow was normal. He was given 1g of Vancomycin and transferred to [facility] for higher level of care.On admission to [facility] BP 176/89, pulse 79, temperature 36.3C. WBC 10.8, ANC 8.25. On inspection, area appeared erythematous, indurated with multiple areas of fluctuance. Elbow was PTT and joint was painful with flexion/extension, though no limitation in range of motion. Last tenus shot was within the previous 5 years. There is associated abrasion and elbow pain, however no bruising, fever, laceration numbness or weakness. 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 Exercise: walks 3 days a week, 2-3 miles Diet: small portions of meat veggies ALLERGIESNo Known AllergiesReview of Systems: All negative with exceptions as noted in HPIPHYSICAL EXAMINATIONVitals: 05/25/23 0150 05/25/23 0153 BP: (!) 176/89 BP Location: Left leg Patient Position: Sitting Pulse: 79 Resp: 17 Temp: 36.3 ?C (97.3 ?F) SpO2: 97% Weight: 95.5 kg (210 lb 8 oz) Height: 1.702 m (5' 7.01") General: Alert oriented times threeHEENT: Atraumatic, PERRLALungs: Clear to auscultation bilaterally, no crackles or wheezingCardio: Normal S1 and S2, no murmurs, rubs or gallopsAbdomen: Soft non-tender, non distended, bowel sounds are presentExtremities: No pitting edema over lower extremitiesNeuro: No focal deficitsSkin: Right elbow erythematous, indurated with multiple areas of fluctuance. Elbow was PTT and joint was painful with flexion/extension, though no limitation in range of motion.LABS - reviewed pertinent labs as below:CBCWBC (10*3/?L) Date Value 05/25/2023 10.80 (H) RBC (10*6/?L) Date Value 05/25/2023 4.17 (L) PLT (10*3/?L) Date Value 05/25/2023 182 HGB (g/dL) Date Value 05/25/2023 13.2 HCT (%) Date Value 05/25/2023 37.0 (L) IMAGING - reviewed, pertinent results as below: X-ray right elbow: OSH 05/24/2023Normal Right elbow x-rayASSESSMENT/PLANPahannah Anam is a 58 year old male with PMH as listed above, admitted to the hospital with:Olecranon bursitis with early cellulitisPoorly controlled M9UDMAR| HLDAKI Patient with uncontrolled diabetes presents from [facility] due to suspicion for septic bursitis requiring aspiration/drainage. Patient HDS, afebrile and otherwise asymptomatic in terms of systemic infection; haw pain with swelling after a fall 2 weeks ago. Mildly elevated WBC. Will start ancef for early sings of nonpurulent cellulitis. Also will consult orthopedics to evaluate and rule out joint involvement. - admit to [facility] team- admission labs- A1c, lipid panel, Pt/INR and aPTT- start IVF NS 500cc- start abx: ancef- consult ortho- hold home DM medications: metformin, pioglitazone, Insulin NPH, Jardiance- hold home BP meds due to ZABRINA, may resume once ZABRINA resolves. - start lantus 10 units +sliding scaleDVT ppx: enoxaparin 40 subQStress ulcer ppx: not indicated at this timeCode: full Jose Acevedo D.O. Department of Internal Medicine, PGY-2 ssociated attestation - Roni Mccracken MD - 05/25/2023 5:26 PM CDT After discussion with Dr. Acevedo, patient was examined with the resident. I agree with resident's note, any necessary changes/additions are mentioned below. For full note please refer to resident's note. Roni Mccracken MD 05/25/2023 5:26 PMAssistant Professor of General Medicine. [id number] and physical [id number], Saad [id number] [id number]:26:13History and physical [id number] for patient [id number] and physical [id number] [id number] [id number] .[id number]. [id number]
--- NOTE | 2023-08-10 14:21 | RAD REPORT ---
EXAM DESCRIPTION: RAD - C Spine Ap/Lat - 08/10/2023 1:53 pm CLINICAL HISTORY: Neck pain FINDINGS: Limited evaluation of the inferior aspect of the C7 vertebral body secondary to overlying shoulders. No fracture or dislocation seen. Congenital fusion C2 and C3
--- NOTE | 2023-08-10 14:22 | RAD REPORT ---
EXAM DESCRIPTION: RAD - Lumbar Spine 3 Views - 08/10/2023 1:53 pm CLINICAL HISTORY: Back pain FINDINGS: No fracture or dislocation seen Postsurgical changes L5-S1
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
[2023-08-10 15:06] VITALS: BP 155/96; TEMP 98.2; O2SAT 100
== END 2023-08-10 14:50 | disposition home or self-care (01) ==
LOC: ER 12:40
DX: M54.50 Low back pain, unspecified (principal); M54.2 Cervicalgia; V49.40XA Driver injured in collision with unspecified motor vehicles in traffic accident, initial encounter; I10 Essential (primary) hypertension
CPT/HCPCS: 72040; 72100; 99283